=== PATIENT | female | born 1945 | race Caucasian/White ===

== ENCOUNTER 2017-01-02 17:12 | Inpatient (IN) | payer MEDICARE, OTHER ==
[~2017-01-02] VITALS: Ht 167.6 cm; Wt 81.5 kg
[2017-01-02 18:38] VITALS: BP 224/119; PULSE 100; RESP 16; O2SAT 99
[2017-01-02] MEDS ORDERED: CLOP75TA3 PO (19:37)
[2017-01-02] MEDS ORDERED: NITR0.4T6 SL (19:37)
[2017-01-02] MEDS ORDERED: INSLIS SUBQ (19:37)
[2017-01-02] MEDS ORDERED: INSU100I13 SUBQ ×2 (19:37)
[2017-01-02] MEDS ORDERED: ASPI-973 PO (19:37)
--- NOTE | 2017-01-02 19:39 | NUR ---
ADMIT Patient was received via BLS from Chau Merritt. Patients , who is a trauma surgeon is with the patient. Per her patient was having nausea and vomiting from gastroenteritis for several days now and he helped her to the bathroom. She, then had syncopal episode and fell and hit the bathroom floor. Patient had a concussion from the fall and a cervical fracture. Patient was then transported to [facility]. HX: DM, HTN-Patient was on Norvasc and a betablocker, which where d/cd due to her having postural hypertension and syncopal episodes, CRF secondary to her DM (CR-2.4-2.6; BUN-55 for her baseline per her . She sees Dr. White for this), Psoriatic arthritis, Severe Afib (Corrected with an ablation 4 yrs. 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 ago, ? migraine. Patient was medicated with Fentanyl prior to transfer to the hospital. Denies nausea. No emesis noted. Denies SOB. Cervical collar in place for 6 weeks per report. Denies numbness/tingling in her BUE/BLE at this time. Equal strength and automotive glass mechanic. Hospitalist paged. Care endorsed to Sanjay Flores RN. *PATIENT WAS SUPPOSED TO HAVE AN EEG TO EVALUATE HER SYNCOPAL EPISODES LAST WEEK BUT WAS UNABLE TO SO DUE TO HER NOT FEELING WELL.
[2017-01-02] MEDS ORDERED: HYDROmorphone 1 mg/mL Inj IVPUSH PRN (19:55)
[2017-01-02 20:00] VITALS: BP 220/112; PULSE 101; RESP 16; O2SAT 96
[2017-01-02] MEDS ORDERED: Ondansetron 2 mg/mL 2 mL Inj IVPUSH PRN (20:05)
[2017-01-02] MEDS: 0.9% Sodium Chloride 1,000 ML IV SCH ×2 (20:05→21:46)
[2017-01-02] MEDS ORDERED: Alum-Mag Hydrox-Simeth 30 mL Suspension PO PRN (20:20)
[2017-01-02] MEDS ORDERED: Glucose 40% Oral Gel 15 Gm Tube PO PRN (21:40)
[2017-01-02] MEDS ORDERED: Dextrose 10% 250 ML IV PRN (21:50)
[2017-01-02] MEDS: Insulin LISPRO 300 Unit/3 mL Inj SUBQ SCH (22:00)
[2017-01-02] MEDS: Insulin GLARgine 100 Unit/mL Syringe SUBQ SCH (22:43)
[2017-01-02 23:01] VITALS: PULSE 110
[2017-01-02 23:45] VITALS: BP 222/106; PULSE 109; RESP 16; O2SAT 99
[2017-01-03] VITALS (8 sets, daily range): BP systolic 146–191; BP diastolic 72–84; PULSE 87–98; RESP 18–24; O2SAT 97–99
[2017-01-03 00:51] LABS: APPEARANCE,URINE CLEAR (CLEAR,HAZY); COLOR,URINE STRAW (YELLOW); OCCULT BLOOD,URINE MODERATE (NEGATIVE); UROBILINOGEN,URINE NORMAL (NORMAL)
[2017-01-03] MEDS: Labetalol 5 mg/mL 4 mL Inj IVPUSH PRN ×2 (00:53→04:31)
--- NOTE | 2017-01-03 01:13 | PCM.HPMED ---
Subjective Date of Service Jan 02, 2017 Primary Provider: Admitting Physician: Jake Sanderson MD Primary Care Physician: Geronimo Gonzales MD Attending Physician: Jake Sanderson MD Admit Status: Direct Admit Chief Complaint: Dizziness, falls History of Present Illness: Patient is a 71 year old female with history of atrial fibrillation, CKD, CAD s/ p stents, TIA, type 2 diabetes, and uncontrolled hypertension who presents as a transfer from [facility] for a head laceration and C-spine fracture following a ground level fall. Most of the history was obtained from the , who is a trauma surgeon at [facility], as the patient was somewhat altered due to pain medications and pain. She had been in declining health over the past 2 months, with recurring orthostatic hypotension and syncope, to the point that she was no longer able to stand for extended periods of time. She had been feeling more dizzy and nauseous, and began developing diarrhea yesterday. Today her was helping her to the commode, and reached for a bucket for her to vomit into when she collapsed, striking the left side of her head against the floor. She lost consciousness for 15 seconds and began to complain of head and neck pain when she came to. At [facility], temp was 36, HR 119, RR 18, BP 201/101, O2 96 on room air. WBC 8.6, Hb 11.6, Hct 34.3, Plt 263. Na 138, K 4.2, Cl 104, CO2 22, BUN 42, Cr 2.5, glucose 212. Troponin was negative. LFTs were normal. CT head/ neck showed no acute intracranial process, but did show a nondisplaced type II dens fracture. [facility] recommended conservative treatment, with placement in a hard collar for 2 weeks with re-evaluation by Dr. Miles from [facility]. She was treated at [facility] for a left scalp laceration, and was then transferred to [facility]. Per the , the patient had been tried on Norvasc, but began developing orthostatic hypotension and syncope since starting it. She has been off the medication for over a week, but he states she is still symptomatic, which he thinks is due to slow renal clearance of the medication. She had had poor oral intake over the past 2 weeks, and had been becoming progressively weaker. She has been having worsening CKD over the last 1-2 years, and her last GFR was 18, similar to today. PCP: Dr. Gonzales ([facility]) Review of Systems: Comprehensive review of systems conducted and was negative except for the pertinent positives listed above. Allergies Coded Allergies: Tetanus Vaccines and Toxoid (Verified Allergy, Severe, 01/02/17) ARRHTYMIA procainamide (Verified Allergy, Severe, 01/02/17) ARRHTYMIA hydromorphone (Verified Adverse Reaction, Severe, Nausea, Feeling Sick, 01/02/17) Home Medications Aspirin 81 mg dialy Plavix 75 mg daily Lantus 10 U AM, 12 U qhs Humalog correctional scale Nitro SL PRN PMH Atrial fibrillation s/p ablation Atrial rupture - complication of ablation Type 2 diabetes, uncontrolled, with neuropathy and nephropathy Hypertension Chronic kidney disease Stage 4 Coronary artery disease s/p stent Psoriatic arthritis TIA Chronic diarrhea Kidney stones Surgical History Cardiac ablation Coronary cath with stent Appendectomy Hysterectomy Oopherectomy Cataract surgery Social History Hx Alcohol Use: No Hx Substance Use: No Exam Vital Signs Vital Sign - Last Date Time Temp Pulse Resp B/P Pulse Ox O2 Delivery O2 Flow Rate FiO2 01/02/17 18:38 36.6 100 16 224/119 99 Room Air Exam General: Alert, somewhat confused but answers appropriately for the most part, Cooperative, Pt in acute distress due to pain Head: Large laceration on left scalp with rabia. External ears normal. Eyes: PERRLA, EOMI. Anicteric sclerae. Mouth: Mouth normal, Mucous membranes moist/pink Neck: Neck in C-collar Chest& Lungs: Clear to auscultation bilaterally with no crackles, wheezes, or rhonchi. Cardiovascular: Regular rate/rhythm, Normal S1, Normal S2, Systolic murmur present Abdomen: Non-tender, Non-distended, No masses, Normoactive bowel tones, Soft Musculoskeletal: Normal range of motion Extremities: No cyanosis/clubbing/edema bilaterally Neurological: Grossly neurologically intact. Normal speech. Strength normal in all 4 extremities. Sensation intact. Assessment & Plan Patient is a 71 year old female with history of atrial fibrillation, CKD, CAD s/ p stents, TIA, type 2 diabetes, and uncontrolled hypertension who presents as a transfer from [facility] for a head laceration and C-spine fracture following a ground level fall. Hypertensive urgency, acute. - Pt has history of uncontrolled hypertension, with multiple medication attempts. Unknown which meds were previously used other than amlodipine, which caused edema and orthostatic hypotension. BP 222/106, HR 109. Likely in part due to pain. - Labetalol 20 mg IV PRN. Goal SBP 170-180 for first 1-2 hours, then 140-160. - Pain control Urinary tract infection, acute. - UA in [facility] showed 25 WBCs, mod RBC, neg nitrite, small LE, moderate bacteria. Pt reports chills, myalgias, fatigue. - UA repeat - Follow up on urine cultures at [facility] - Ceftriaxone IV Tachycardia, acute. - Pt has apparently not had issues with afib since the ablation, but she is tachycardic now. Likely secondary to pain. - EKG ordered - Monitor on telemetry. Cervical fracture, acute. - Per discussion with Jacey, pt to wear C-collar for 2 weeks, with follow up imaging and appointment with Dr. Miles in 2 weeks. No weakness or new numbness in any extremity. - Immobilization of neck with C-collar - Regular neurologic checks - Morphine 2-4 mg IV q4h PRN - Tylenol PRN - Zofran PRN Ground level fall, acute -h/o falls and orthostatic hypotension -check orthostatic bp -PT/ OT for deconditioned state Type 2 diabetes, uncontrolled, with neuropathy and nephropathy - Glucose was 212. Pt was on Lantus 12 U hs and 10 U AM, but is eating poorly - A1c ordered - Lantus 12 U qhs - Humalog medium dose correctional scale Diarrhea, acute on chronic. Resolved. - Pt had diarrhea over last 2 days, but states it has resolved at this time. She reports intermittent diarrhea of unknown cause. Reports recently taking Flagyl for diarrhea. - Stool PCR Chronic kidney disease Stage 4 - Reported baseline Cr 18, similar to today. - Continue to monitor CMP Coronary artery disease s/p stent - Continue aspirin - Hold Plavix for 1-2 days, restart if no signs of bleeding. Psoriatic arthritis - Stelara not available on formulary. Continue on discharge. Other Chronic Conditions Atrial fibrillation s/p ablation Atrial rupture - complication of ablation TIA Chronic diarrhea Kidney stones The patient is admitted under inpatient status with stay >2 midnights due to severity of illness. Pain Evaluation: Adequate Pain Control VTE Prophylaxis: SCDs Resuscitation Status: CPR: Attempt Resuscitation Attending Statement The patient was seen and examined together with house staff on 01/02/2017 and I agree with the history, exam and plan as outlined in the note above. Evangelista Lake Jan 02, 2017 21:44 Apryl Reed DO Jan 03, 2017 04:15
[2017-01-03] MEDS: cefTRIAXone Inj 1,000 MG in Dextrose 5% Minibag Plus 50 ML IV SCH (02:12)
[2017-01-03] MEDS: Ondansetron 2 mg/mL 2 mL Inj IVPUSH PRN ×3 (02:57→08:00)
[2017-01-03] MEDS: Acetaminophen IV 1,000 MG in IV Premix 1 EACH IV PRN ×3 (03:01→17:49)
--- NOTE | 2017-01-03 03:55 | NUR ---
Pain/ Nausea Pt. seems to be sensitive to narcotics. IV morphine 2 mg given, and pt. started to get nauseous. IV Zofran given. IV Tylenol given later in shift, and IV Tylenol lowered pt's pain without making her nauseous. Will continue to monitor. Addendum: 01/03/17 at 0535 by SAEED MORRIS RN Pt. had pettit present on admission. Patent and draining to gravity.
[2017-01-03] MEDS: 0.9% Sodium Chloride 1,000 ML IV SCH ×4 (06:05→16:17)
--- NOTE | 2017-01-03 06:14 | NUR ---
Neuro paged Concerned about pt's neuro status. paged. Pt. continues to vomit, and have high BP despite medications. Pt's right pupil is also less equal reactive to light than left. Laura BABIN paged. Addendum: 01/03/17 at 0617 by SAEED MORRIS RN called back. No new orders at this time.
[2017-01-03 06:22] LABS: BASOPHILS % (AUTO) 0.1 % (0-3); EOSINOPHILS % (AUTO) 0 % (0-5); MONOCYTES % (AUTO) 9.6 % (4-12); Mean Corpuscular Hemoglobin 30.6 pg (27.0-35.0); Mean Corpuscular Volume 94.1 fL (81-100); NEUTROPHILS % (AUTO) 82.6 % (40-74); Platelet Count 220 bil/L (150-400)
--- NOTE | 2017-01-03 08:27 | DRSVH ---
PROCEDURE: CT BRAIN WITHOUT CONTRAST ([id number]) INDICATIONS: Head trauma, HTN, vomiting, anisocoria TECHNIQUE: Noncontrast 4.5 mm thick angled axial sections acquired from the foramen magnum to the vertex, with c oronal reformats. COMPARISON: [facility], CT, HEAD WITHOUT CONTRAST, 10/19/2015, 13:07. FINDINGS: Image quality: Excellent. CSF spaces: Basal cisterns are patent. No extra-axial fluid collections. Ventricles are normal in size and shape. Brain: No midline shift. No intracranial masses or hemorrhage. Marin-white matter interface is norm al. Skull and face: Calvarium and visualized facial bones are intact, without suspicious lesions. Exten sive left scalp hematoma. Sinuses: Minimal inferior right maxillary sinus and ethmoid air cell mucosal thickening. Otherwise vi sualized sinuses and mastoids are clear. IMPRESSION: No CT evidence of acute intracranial pathology. Extensive left scalp hematoma. Dictated by: Juaquin Golden M.D. on 01/03/2017 at 8:16 Approved by: Juaquin Golden M.D. on 01/03/2017 at 8:19
[2017-01-03] MEDS ORDERED: fentaNYL-PF 50 mCg/mL 2 mL Inj IVPUSH PRN ×2 (08:35)
[2017-01-03] MEDS: Insulin LISPRO 300 Unit/3 mL Inj SUBQ SCH ×4 (08:49→21:23)
[2017-01-03] MEDS: MetoCLOpramide 5 mg/mL 2 mL Inj IVPUSH PRN (11:24)
[2017-01-03 12:19] LABS: Lipase 21 U/L (13-60)
--- NOTE | 2017-01-03 15:40 | NUR ---
neuro/nausea pt continues to be severely nauseated, retching at times, pt c/o neck pain and H/A, sometimes dizziness, VS OK, she is alert and oriented, but very uncomfortable, unable to turn her, her left synagogue is swollen and she has bilat periorbital edema. no vision changes, pupils reactive but constricted. Call to Dr Rodriguez, he ordered a CT scan of her brain and changed some of her nausea and pain meds, also called her , who happens to be a general surgeon to let him know how she was doing. Dr Rodriguez was able to talk to him also
--- NOTE | 2017-01-03 15:47 | NUR ---
Syncope?seizure? after pt had CT scan this am she was able to sleep for about 1.5 hours, but when she woke up, she was retching again, and then she started shaking, her upper body and arms. Appeared like seizure activity. She was confused and yelled at us to let her loose, but we weren't holding her. She didn't know where she was or what time of day. She was struggling for a minute or two and in obvious distress. Shortly after that her got here, after describing it to him, he said that it sounded like episode she's been having at home. He believes these to be syncopal episodes. Shortly after that she fell asleep again and woke up feeling slightly better. Her sleeping state does not appear normal for her either,according to her . She has been snoring with short periods of apnea, but she is arousable. After her second nap she seemed to be feeling slightly better. HR been 90-100s, BP170/84, sat 98% on RA even while sleeping. Dr Rodriguez was notified of episode
--- NOTE | 2017-01-03 16:08 | NUR ---
Social Work- Initial Assessment Data: See Initial Assessment. Pt is a 71 year old female admitte 01/02/17 for diarrhea, syncope, hypovolemia per H&P. Pt's insurance is [facility] [employer]. Pt's PCP is Geronimo Gonzales MD. Pt's NOK is Jayson [phone] and [phone]. Pt's readmit risk score is 4- high risk. SW met with pt and pt's at bedside regarding discharge plan. SW role explained. Pt was asleep during this assessment. Pt resides in [place] with her . Until 3 months ago pt was ambulatory and independent. Until three weeks ago, pt was ambulatory but with continued weakness. Beginning three weeks prior to admission pt has become so weak she is a total assist. Pt's uses a contact guard to move her from BSC to bed, approximately 10 feet. Pt also has a wheelchair to move from room to room with her husbands assistance. Pt's is very concerned about pt's mobility. In pt's home there is a wheelchair, AED, BP monitor, Diabetic Monitor, BSC, and Telemetry system. Per and EMR review, pt will require cervical collar for 6 weeks for a cervical fracture. In notes, PT and OT were recommended. PIN ATTACHER followed up regarding this in AM rounds. At this time, Hospitalist feels that PT and OT are not appropriate for pt to participate. No orders have been entered at the time of this note. Pt's feels that pt should go to inpt rehabilitation after this admission. SW explained that a doctor would have to order this based on medical necessity for insurance to pay for it. SW would be happy to chat with Hospitalist regarding this and also encouraged pt's to speak with MD as well. Pt's shared that [facility] inpt rehab would be first choice. At this time no SNF or inpt rehab orders have been entered. SW will await orders before pursuing inpt rehab or SNF. Pt has no HH or SNF history. Pt has no LTC or VA benefits. SW provided to discharge planning checklist to pt's at bedside. SW also discussed the potential for hiring private caregivers if pt does not meet medical criteria for a higher level of care. Pt's states this is financially possible. Agreeable to reviewing the [facility] Guide for private pay caregivers. Resource Guide provided at bedside. SW provided name and phone number on whiteboard. SW will continue to follow. Assessment: Pt whom is very weak and debilitated Plan: SW following for inpt rehab or SNF orders pending clinical course. Pt is very debilitated and will require extensive assistance at home. Caregiving resources have been provided to pt's . SW will continue to follow. Digna Madrigal [facility] Addendum: 01/03/17 at 1619 by LEV MADRIGAL SS Amended: Links added.
--- NOTE | 2017-01-03 16:28 | PCM.PNMED ---
Subjective Date of Service Jan 03, 2017 Subjective She is seen today to follow up the C2 spinal fracture, intractable vomiting, altered mental status, autonomic dysreflexia of long-term diabetes. She has had quite a disturbing day so far. She has been vomiting, retching dry heaves, shaky at times, oversedated appearing at other times. When she was vomiting she is at high risk for aspiration as she is unable to sit up due to the C- spine fracture/brace and due to her postural hypotension. She lies on her side both when vomiting and when sleeping. She is a retired nurse. I have spoken at length with her who is a retired general surgeon and who has significant knowledge about her medical history and about her unique conditions. Her baseline problem appears to be type II diabetes with severe neuropathic symptoms and autonomic dysreflexia. She has been worked up by Dr. Marie from neurology, her cleater, her hydroelectric production technician Dr. Andrews and by her channel sales manager Dr. Gonzales. There are more several more specialists involved than that. For the last several months she has been unable to stand and walk on her own without assistance because her blood pressure would drop as low as the 80s or lower systolic as soon as she stood up. She does not appear to have been tried on fludrocortisone or ProAmatine that I can tell. Several times today she has been intractably ill enough that she has been considered for transfer to an ICU or ICU stepdown unit. Each time she then stabilizes and seems to be okay. Exam Vital Signs Vital Sign - Last Date Time Temp Pulse Resp B/P Pulse Ox O2 Delivery O2 Flow Rate FiO2 01/03/17 10:22 96 01/03/17 08:46 36.4 24 170/84 99 Room Air Intake and Output 01/02/17 01/02/17 01/03/17 Cumulative From/Thru 15:00 23:00 07:00 01/02/17 19:18 - 01/03/17 05:42 Intake Total 913 ml 913 ml Output Total 850 ml 850 ml Balance 63 ml 63 ml Intake Oral 100 ml 100 ml IV Total 813 ml 813 ml Output Urine Total 850 ml 850 ml # Bowel Movements 0 0 Exam She is alert and oriented 3. At other times she is post sedated and confused or sleeping. I have seen her several times today. She is lying on her side, right, with a hard collar on her C-spine. Heart is regular rate and rhythm without murmur Lungs are clear to auscultation bilaterally Abdomen is soft, nontender, no organomegaly, bowel sounds active. Extremities no ankle edema. Lab and Diagnostics Result Diagram: 01/03/1755301/03/17553 Assessment & Plan Patient is a 71 year old female with history of atrial fibrillation, CKD, CAD s/ p stents, TIA, type 2 diabetes, and uncontrolled hypertension/diabetic autonomic dysreflexia who presents as a transfer from [facility] for a head laceration and C-spine fracture following a ground level fall. Hypertensive urgency, acute. - Pt has history of uncontrolled hypertension, with multiple medication attempts. Unknown which meds were previously used other than amlodipine, which caused edema and worsened orthostatic hypotension beyond her baseline problem with that. - Labetalol 20 mg IV PRN. Goal SBP 170-180 for first 1-2 hours, then 140-160. - Pain control Urinary tract infection, acute. - UA in [facility] showed 25 WBCs, mod RBC, neg nitrite, small LE, moderate bacteria. Pt reports chills, myalgias, fatigue. - UA repeat - Follow up on urine cultures at [facility] - Ceftriaxone IV Tachycardia, acute. - Pt has apparently not had issues with afib since the ablation, but she is tachycardic now. Likely secondary to pain. - Monitor on telemetry. Cervical fracture, acute. - Per discussion with Jacey, pt to wear C-collar for 2 weeks, with follow up imaging and appointment with Dr. Miles in 2 weeks. No weakness or new numbness in any extremity. - Immobilization of neck with C-collar - Regular neurologic checks - Morphine 2-4 mg IV q4h PRN, seems to be related to her nausea and so has been changed to fentanyl. - Tylenol IV PRN - Zofran PRN Ground level fall, acute -h/o falls and orthostatic hypotension/ Diabetic autonomic dysreflexia -check orthostatic bp -PT/ OT for deconditioned state -Trial of midodrine/Florinef if not already failed. Will discuss with her . Continue IV fluid support. Type 2 diabetes, uncontrolled, with neuropathy and nephropathy - Glucose was 212. Pt was on Lantus 12 U hs and 10 U AM, but is eating poorly - A1c ordered - Lantus 12 U qhs - Humalog medium dose correctional scale - No signs of DKA. Diarrhea, acute on chronic. Resolved. - Pt had diarrhea over last 2 days, but states it has resolved at this time. She reports intermittent diarrhea of unknown cause. Reports recently taking Flagyl for diarrhea. - Stool PCR Chronic kidney disease Stage 4 - Reported baseline Cr 18, similar to today. - Continue to monitor CMP Coronary artery disease s/p stent - Continue aspirin - Hold Plavix for 1-2 days, restart if no signs of bleeding. Psoriatic arthritis - Stelara not available on formulary. Continue on discharge. Other Chronic Conditions Atrial fibrillation s/p ablation Atrial rupture - complication of ablation TIA Chronic diarrhea Kidney stones The patient is admitted under inpatient status with stay >2 midnights due to severity of illness. The short range plan is to stabilize in her current Room if symptoms, likely related to morphine use, become more subdued. If that does not sustain then she will be transferred to a higher level of care. The long-range plan is to continue IV fluid support, possible endocrine consultation for autonomic dysreflexia and PT/OT with goal of discharge home. Fludrocortisone may be helpful. VTE Prophylaxis: SCDs VTE Mechanical Devices: Intermittant Pneumatic CD Resuscitation Status: CPR: Attempt Resuscitation Kenneth Rodriguez MD Jan 03, 2017 11:22
--- NOTE | 2017-01-03 17:58 | NUR ---
neuros/nausea pt comfortable and nausea free at this time, no further episodes since the one previously documented. Pt was actually able to take some pudding and Gatorade. alert, oriented. VSS
[2017-01-03] MEDS: Insulin GLARgine 100 Unit/mL Syringe SUBQ SCH (21:30)
[2017-01-03] MEDS: Labetalol 5 mg/mL 20 mL Inj IVPUSH PRN (21:31)
[2017-01-04] VITALS (9 sets, daily range): BP systolic 154–196; BP diastolic 67–93; PULSE 81–101; RESP 16–20; O2SAT 95–98
[2017-01-04] MEDS: Acetaminophen IV 1,000 MG in IV Premix 1 EACH IV PRN ×3 (01:00→22:17)
[2017-01-04] MEDS: cefTRIAXone Inj 1,000 MG in Dextrose 5% Minibag Plus 50 ML IV SCH (02:00)
[2017-01-04] MEDS: 0.9% Sodium Chloride 1,000 ML IV SCH ×4 (02:05→22:15)
[2017-01-04 06:14] LABS: Mean Corpuscular Hemoglobin 30.6 pg (27.0-35.0); Mean Corpuscular Volume 95.6 fL (81-100)
--- NOTE | 2017-01-04 06:42 | NUR ---
Neuros/ Pain/ GI Pt. was sleeping earlier in shift, however pt. woke up in severe pain. 25 mcg Fentanyl which pt. tolerated well with no nausea. Pt. still reports IV Tylenol helping with her pain. Pt.'s nausea and retching seemed to slow around midnight, and is absent as of now. Pt.'s neuro checks have been the same all shift. Pupils equal and reactive to light and left perioribital edema. Pt. is alert and oriented x3. Will continue to monitor.
[2017-01-04] MEDS ORDERED: Cosyntropin 0.25 mg/mL Inj IV ONE (07:00)
[2017-01-04] MEDS: Insulin LISPRO 300 Unit/3 mL Inj SUBQ SCH ×4 (08:00→22:00)
[2017-01-04] MEDS: MetoCLOpramide 5 mg/mL 2 mL Inj IVPUSH PRN (08:31)
[2017-01-04] MEDS: Labetalol 5 mg/mL 20 mL Inj IVPUSH PRN ×3 (08:43→22:33)
--- NOTE | 2017-01-04 11:16 | NUR ---
NUTRITION ASSESSMENT: ASSESS: Pt is a 71yo F admitted for head laceration and C-spine fracture following a ground level fall. Pt has had persistent nausea/vomiting and diarrhea. Per H&P pt has had poor PO intake for the last 2 weeks. She is currently on HH/Diabetic diet but has only been able to tolerate bites of pudding and some Gatorade. PMHX: T2DM, HTN, CKD stg 4, CAD, TIA LABS: Reviewed. Cl 110, Bun 28, gas examiner 1.92, Glu 114, Ca 8.3, Alb 2.4 MEDS: Reviewed. Insulin, zofran GI: 0 BM noted SKIN: Dc 14, had laceration, bruising CURRENT WTS: 87.5kg, BMI 31.1kg/m2, IBW: 59.1kg DIET: HH/DM, PO refused-sips EST. NEEDS: Kcals: 2185-2625kcal/day (25-30kcal/kg) Pro: 70-90g/day (1.2-1.5g/kg IBW) NUTRITION DIAGNOSIS: 1.) Inadequate oral intake related to altered GI function as evidence by poor PO intake x2 weeks and persistent nausea/vomiting. NUTRITION INTERVENTION: 1.) Will add Ensure CL on B and L trays to help increase kcal/pro/fluid intake while pt has n/v MONITOR / EVAL: PO, GI, labs, wt, POC, nutrition status. Will continue to monitor per high nutrition risk guidelines
[2017-01-04] MEDS: Ondansetron 2 mg/mL 2 mL Inj IVPUSH PRN (13:35)
--- NOTE | 2017-01-04 15:13 | PCM.PNMED ---
Subjective Date of Service Jan 04, 2017 Subjective Pt reports improved nausea and pain in neck. She is still having difficulty moving from bed due to pain. Her BP has been elevated again and she has been unable to stand as that's usually when she says shes get syncopal episodes even when her BP is high. Exam Vital Signs Vital Sign - Last Date Time Temp Pulse Resp B/P Pulse Ox O2 Delivery O2 Flow Rate FiO2 01/04/17 14:48 82 154/72 01/04/17 12:34 37.2 16 95 Room Air Intake and Output 01/03/17 01/03/17 01/04/17 Cumulative From/Thru 15:00 23:00 07:00 01/02/17 19:18 - 01/04/17 06:07 Intake Total 1679 ml 1504 ml 4096 ml Output Total 500 ml 750 ml 2100 ml Balance 1179 ml 754 ml 1996 ml Intake Oral 420 ml 300 ml 820 ml IV Total 1259 ml 1204 ml 3276 ml Output Urine Total 500 ml 750 ml 2100 ml # Bowel Movements 0 0 0 Exam Gen- She is alert and oriented 3. Neck- hard collar on her C-spine. Pain w/ turning. Heart- RRR, S1, S2, No M/R/G Lungs - CTAB, No Wheezes Abdomen- NT/ND, Soft, +BS Extremities- No edema IVs and Medications Medications Reviewed: Medications were reviewed in detail Lab and Diagnostics Result Diagram: 01/04/1745 01/04/17 0545 Assessment & Plan Patient is a 71 year old female with history of atrial fibrillation, CKD, CAD s/ p stents, TIA, type 2 diabetes, and uncontrolled hypertension/diabetic autonomic dysreflexia who presents as a transfer from [facility] for a head laceration and C-spine fracture following a ground level fall. Hypertensive urgency, acute. - Pt has history of uncontrolled hypertension, with multiple medication attempts. Unknown which meds were previously used other than amlodipine, which caused edema and worsened orthostatic hypotension beyond her baseline problem with that. - Labetalol 20 mg IV PRN. Goal SBP 170-180 for first 1-2 hours, then 140-160. - Pain control. Cervical fracture, acute. - Per discussion with Jacey pt to wear C-collar for 2 weeks, with follow up imaging and appointment with Dr. Barb[place] in 2 weeks. No weakness or new numbness in any extremity. - Immobilization of neck with C-collar - Regular neurologic checks - Morphine 2-4 mg IV q4h PRN, seems to be related to her nausea and so has been changed to fentanyl. - Tylenol IV PRN - Zofran PRN orthostatic Hypotension/Autonomic Dysreflexia. -h/o falls and orthostatic Hypotension/Autonomic Dysreflexia. -unable to check orthostatic bp, -PT/ OT for deconditioned state - would like to see Nephrology as they were told they needed to follow up with Nephrology this week. Will consult for orthostatic hypotension and role of Florinef. Can continue Florinef for now. Continue IV fluid support. Type 2 diabetes, uncontrolled, with neuropathy and nephropathy - Glucose was 212. Pt was on Lantus 12 U hs and 10 U AM, but is eating poorly - Lantus 12 U qhs - Humalog medium dose correctional scale - No signs of DKA. Chronic kidney disease Stage 4 - Reported baseline Cr 18, similar to today. - Continue to monitor CMP Urinary tract infection, acute. - UA in [facility] showed 25 WBCs, mod RBC, neg nitrite, small LE, moderate bacteria. Pt reports chills, myalgias, fatigue. - UA repeat - Follow up on urine cultures at [facility] - Ceftriaxone IV, consider change to PO. Tachycardia, acute. - Pt has apparently not had issues with afib since the ablation, but she is tachycardic now. Likely secondary to pain. - Monitor on telemetry Coronary artery disease s/p stent - Continue aspirin - Hold Plavix for 1-2 days, restart if no signs of bleeding. Psoriatic arthritis - Stelara not available on formulary. Continue on discharge. Other Chronic Conditions Atrial fibrillation s/p ablation Atrial rupture - complication of ablation TIA Chronic diarrhea Kidney stones The patient is admitted under inpatient status with stay >2 midnights due to severity of illness. The long-range plan is to continue IV fluid support, possible endocrine consultation for autonomic dysreflexia and PT/OT with goal of discharge home. Nephro consult pending. VTE Prophylaxis: SCDs VTE Mechanical Devices: Intermittant Pneumatic CD Resuscitation Status: CPR: Attempt Resuscitation Time spent 60 minutes Jose Tan MD Jan 04, 2017 15:02
--- NOTE | 2017-01-04 16:00 | NUR ---
VALENTE signed by pt's at pt's request at bedside. Digna Salguero, DATAPOWER CONSULTANT
--- NOTE | 2017-01-04 16:27 | NUR ---
Social Work- Family Conference Data: EMR reviewed. Pt is on day 2 of hospitalization for diarrhea, syncope, hypovolemia per H&P. Pt is not medically stable for discharge. Per multi-disciplinary rounds, LOG HOOKER asked again about PT and pt's ability to participate in skilled PT service during this admission. MD stated he would look into this and later PT evaluation was ordered. Pt continues to have difficulty moving from bed due to pain. Pt's BP has been elevated again and she has been unable to stand. Nephrology consult has been ordered. PT evaluation has been ordered. RN informed LOG HOOKER that pt and pt's Jayson were requesting to speak with LOG HOOKER at bedside. LOG HOOKER met with pt's Jayson and pt at bedside. Pt's RN appeared to complete care intermittently during this conversation. Pt's spoke at length regarding pt's medical issues and concerns. SW explained that LOG HOOKER is not an MD and does not have the medical expertise necessary to answer his clinical questions but LOG HOOKER will defer to doctors expertise. SW reiterated the role of discharge planning here at the hospital and explained that discharge plans are crafted with LOG HOOKER recommendations but also MD orders based on medically necessary level of care. LOG HOOKER verified that no Inpt Rehab, SNF, or HH orders have been ordered at this time. Pt's continued to request that pt discharge to inpt rehab. LOG HOOKER stated that we will have to assess her tolerance for activity and to be sure that she is able to tolerate the necessary intensity of inpt rehabilitation if this is medically indicated and ordered. LOG HOOKER provided a listening presence and addressed pt's questions to the best of ability. Pt's has extensive medical questions related to pt's plan of care and consults. LOG HOOKER informed pt's that nephrology consult and PT evaluation was ordered. Pt's requests to be present at PT evaluation tomorrow. RN aware of this. Pt's expressed clinical concerns related to care, Patient Advocate contact information provided at bedside. Pt's reviewed and is aware of pt's rights through [facility] and completed signed VALENTE. At the conclusion of this conversation, pt's stated appreciation and no further concerns or questions for LOG HOOKER specifically. LOG HOOKER confirmed that phone number was on whiteboard and encouraged pt and pt's to contact this worker with any further questions or concerns. SW will continue to follow. Assessment: Pt for whom higher level of care may be required. Plan: PT evaluation pending. SW awaiting MD orders for pt's discharge plan and necessary level of care. Pt's expressed clinical concerns related to care, Patient Advocate contact information provided at bedside. SW will continue to follow. FARHAN Uribe
--- NOTE | 2017-01-04 18:33 | NUR ---
Pain/mobility patient's pain level has been well controlled when at rest rate pain 0-2/10 at rest. patient's pain and nausea level does increase with any movement/position changes. Turning Q2hrs. this afternoon patient was able to raise the head of her bed and eat dinner and visit with family. this is an improvement from this morning. continue to encourage increased mobility.
--- NOTE | 2017-01-04 18:36 | NUR ---
husbands concern with plan of care. during a discussion with patient's , who is an MD Surgeon with [employer]. Spouse reported concerns with is interaction with Dr Tan stating, "he just wants to ship her to a care home". spouse is requesting contact with a patient advocate, consultations with nephrology about her kidney function and blood pressures and with orthopedics to consult on neck injury,and physical therapy evaluation. I contacted family welfare social work professor who helped set up advocate and facilitated referral with nephrology, who will see patient tomorrow. I reassured that staff will advocate and make sure is concerns are addressed. he verbalized understanding.
[2017-01-04] MEDS: Insulin GLARgine 100 Unit/mL Syringe SUBQ SCH (22:22)
[2017-01-05] VITALS (23 sets, daily range): BP systolic 119–223; BP diastolic 63–105; PULSE 72–86; RESP 12–22; O2SAT 93–99
[2017-01-05] MEDS: cefTRIAXone Inj 1,000 MG in Dextrose 5% Minibag Plus 50 ML IV SCH (01:34)
[2017-01-05] MEDS: Labetalol 5 mg/mL 20 mL Inj IVPUSH PRN ×2 (04:36→06:43)
[2017-01-05] MEDS: Acetaminophen IV 1,000 MG in IV Premix 1 EACH IV PRN (04:51)
--- NOTE | 2017-01-05 05:32 | NUR ---
Chest pain Pt. reported chest pain 01/09. Stat EKG ordered. Dr. Hodgson paged. Nitroglycerin SL ordered and given. Pt's chest pain went down to 07/12. Pt's BP also symptomatic 223/105 before Nitroglycerin given. 15 mins after Nitroglycerin given 174/89. Pt's BP continues to rise. Labatelol given, and brought it down to 184/81. Rema BABIN paged again. Troponin critical lab ordered. Troponin 0.051. Rema BAIBN made aware. Bonnie Caceres CCU medical charge entry specialist made aware if this situation, and has a bed in [facility] ready for pt. Got the okay by Dr. Hodgson to send pt. to [facility]. Will give report to Beatriz Bansal RN once bed is ready.
[2017-01-05] MEDS ORDERED: Nitroglycerin 2% 1 Gm Ointment TOPICAL ONE (07:35)
--- NOTE | 2017-01-05 07:47 | NUR ---
Chest Pain Pt reports initially 3/10 LUE pain, increased to 7/10. EKG obtained, 2mg IV morphine administered along with 4mg zofran for nausea. 1 inch Nitro paste applied to L chest. Dr. Wiggins at bedside. Currently pain is zero, nausea resolved. Trending troponin levels.
[2017-01-05] MEDS ORDERED: Nitroglycerin 2% 1 Gm Ointment TOPICAL SCH (07:50)
--- NOTE | 2017-01-05 07:52 | NUR ---
Transfer/L Shoulder pain Pt arrived to unit a little after 0600, report from [facility]SC RN. Pt had Tylenol IV finishing, pt reported that pain was in left arm but was now gone, neck pain also 0/10 at the time. SBP 190s, given Labetolol before shift change report. During shift change report pt c/o of 3/10 LUE pain, stat EKG ordered, day RN aware, MD Wiggins came to see pt, while day RN giving IV morphine. See day RN note for details.
--- NOTE | 2017-01-05 08:58 | PCM.PNMED ---
Subjective Date of Service Jan 05, 2017 Subjective She is having chest pain or left arm pain this morning. This is constant. No associated diaphoresis or dyspnea. She is however nauseated and had dry heaving. She has a history of a diagonal lesion proximal to her LAD stent which was felt to not be amenable to PCI in the past. She recently was taken off beta blockers because of orthostatic hypotension and has been off Plavix for several days in relation to his C2 neck fracture. She has a more distant history of atrial fibrillation with ablation. She denies any abdominal pain. Met with her , retired surgeon at the bedside. Exam Vital Signs Vital Sign - Last Date Time Temp Pulse Resp B/P Pulse Ox O2 Delivery O2 Flow Rate FiO2 01/05/17 07:46 36.6 81 18 204/92 98 01/05/17 06:11 Room Air Intake and Output 01/04/17 01/04/17 01/05/17 Cumulative From/Thru 15:00 23:00 07:00 01/02/17 19:18 - 01/05/17 05:03 Intake Total 1552 ml 400 ml 6048 ml Output Total 800 ml 750 ml 3650 ml Balance 752 ml -350 ml 2398 ml Intake Oral 300 ml 400 ml 1520 ml IV Total 1252 ml 4528 ml Output Urine Total 800 ml 750 ml 3650 ml # Bowel Movements 0 0 0 Exam Alert and oriented -3, no distress. Fluent speech, cervical collar in place. Anicteric sclera. Lungs are clear with normal rate and effort Heart is regular without murmur gallop or rub Abdomen soft nontender, flat Extremities are free of edema. Normal movement arms and legs Skin is free of rash or lesions. IVs and Medications Medications Reviewed: Medications were reviewed in detail Lab and Diagnostics Result Diagram: 01/04/1745 01/04/17544 Assessment & Plan Patient is a 71 year old female with history of atrial fibrillation, CKD, CAD s/ p stents, TIA, type 2 diabetes, and uncontrolled hypertension/diabetic autonomic dysreflexia who presents as a transfer from [facility] for a head laceration and C-spine fracture following a ground level fall. Chest pain, new. This patient is likely having unstable angina relation to her known diagnosis vessel disease and recent cessation of dual antiplatelet therapy. We will give her dose of Plavix, aspirin, low-dose metoprolol and place Nitropaste for both blood pressure and anginal symptoms. RR at this point considering heparin drip as well. She has likely a low bleeding risk associated with her C2 odontoid fracture. We will also give her 1 unit of blood as her hematocrit is 25 and she is having active chest pain. Anemia of chronic disease, POA and active. We will give her 1 unit of blood for a target hematocrit of 27-28 given her acute active chest pain. Hypertensive urgency, POA and active - Pt has history of uncontrolled hypertension, with multiple medication attempts. Unknown which meds were previously used other than amlodipine, which caused edema and worsened orthostatic hypotension beyond her baseline problem with that. - Labetalol 20 mg IV PRN. Goal SBP 170-180 for first 1-2 hours, then 140-160. - Pain control. We will add Nitropaste and metoprolol IV load as above. Cervical fracture, POA and active - Per discussion with Jacey, pt to wear C-collar for 2 weeks, with follow up imaging and appointment with Dr. Miles in 2 weeks. No weakness or new numbness in any extremity. - Immobilization of neck with C-collar - Regular neurologic checks - Morphine 2-4 mg IV q4h PRN, seems to be related to her nausea and so has been changed to fentanyl. - Tylenol IV PRN - Zofran PRN No change to plans. orthostatic Hypotension/Autonomic Dysreflexia. POA and possibly active. -h/o falls and orthostatic Hypotension/Autonomic Dysreflexia. -unable to check orthostatic bp, -PT/ OT for deconditioned state - would like to see Nephrology as they were told they needed to follow up with Nephrology this week. Will consult for orthostatic hypotension and role of Florinef. Can continue Florinef for now. Continue IV fluid support. We will have to follow clinically as we lowered her with Nitropaste and metoprolol for her acute chest pain syndrome. Type 2 diabetes, uncontrolled, with neuropathy and nephropathy. POA and active. - Glucose was 212. Pt was on Lantus 12 U hs and 10 U AM, but is eating poorly - Lantus 12 U qhs - Humalog medium dose correctional scale - No signs of DKA. Follow clinically Chronic kidney disease Stage 4 - Reported baseline Cr 18, similar to today. - Continue to monitor CMP Try to avoid any contrast or other nephrotoxic agents. Urinary tract infection, POA had acute. - UA in [facility] showed 25 WBCs, mod RBC, neg nitrite, small LE, moderate bacteria. Pt reports chills, myalgias, fatigue. - UA repeat - Follow up on urine cultures at [facility] - Ceftriaxone IV, consider change to PO. Tachycardia, POA and improved. - Pt has apparently not had issues with afib since the ablation, but she is tachycardic now. Likely secondary to pain. - Monitor on telemetry Coronary artery disease s/p stent to LAD. POA and active with chest pain as outlined above. - Continue aspirin - Hold Plavix for 1-2 days, restart if no signs of bleeding. Psoriatic arthritis, POA unstable - Stelara not available on formulary. Continue on discharge. Other Chronic Conditions Atrial fibrillation s/p ablation. Not active Atrial rupture - complication of ablation TIA Chronic diarrhea Kidney stones The patient is admitted under inpatient status with stay >2 midnights due to severity of illness. VTE Prophylaxis: SCDs VTE Mechanical Devices: Intermittant Pneumatic CD Resuscitation Status: CPR: Attempt Resuscitation Jose Wiggins MD Jan 05, 2017 08:58
[2017-01-05] MEDS: 0.9% Sodium Chloride 1,000 ML IV SCH ×2 (09:39→21:38)
[2017-01-05] MEDS: Insulin LISPRO 300 Unit/3 mL Inj SUBQ SCH ×4 (09:39→21:42)
[2017-01-05] MEDS: MeTOProlol 1 mg/mL 5 mL Inj IVPUSH SCH ×3 (09:50→10:05)
--- NOTE | 2017-01-05 10:26 | NUR ---
NUTRITION FOLLOW-UP: ASSESS: Pt is a 71 YO female admitted with head laceration and C-spine fracture following a ground level fall. Pt has had persistent nausea/vomiting and diarrhea. Per H&P pt has had poor PO intake for the last 2 weeks. She is currently on a heart healthy consistent carbohydrate diet; however PO intake remains inconsistent, bites - 100% trays. PMHX: T2DM, HTN, CKD stg 4, CAD, TIA LABS:Reviewed. Chloride 111, Cr 1.97, Glu 133, A1c 7.6. MEDS:Reviewed. Insulin, zofran. GI: 0 BM noted x 3 D. SKIN: Dc 14, head laceration, bruising. WT: 87.5kg, BMI 31.1 kg/m2, IBW: 59.1 kg DIET: Heart healthy consistent carb. Inconsistent but improving PO intake. EST. NEEDS: Kcals: 2185-2625kcal/day (25-30kcal/kg) Pro: 70-90g/day (1.2-1.5g/kg IBW) NUTRITION DIAGNOSIS: 1) Inadequate oral intake related to altered GI function as evidence by poor PO intake x2 weeks and persistent nausea/vomiting - SLIGHTLY IMPROVED. NUTRITION INTERVENTION: 1) Will continue Ensure Clear Liquid on B and L trays, Gelatein on D tray to help increase kcal/pro/fluid intake while pt has n/v. MONITOR / EVAL: PO, GI, labs, wt, POC, nutrition status. Will continue to monitor per high nutrition risk guidelines.
--- NOTE | 2017-01-05 10:51 | NUR ---
Orthostatics PT in to assist with orthostatics. Pt able to sit, unable to stand 2/2 dizziness and near syncope. + orthostatics, see VS flow sheet. HR stable throughout- SR in 70s.
[2017-01-05] MEDS: 0.9% Sodium Chloride 250 ML IV SCH (13:35)
--- NOTE | 2017-01-05 14:17 | NUR ---
Evaluation completed. Please go to "Notes" then click on "Assessments and Notes" (bottom left corner of screen). Then select appropriate discipline tab on top of screen.
--- NOTE | 2017-01-05 15:57 | NUR ---
Social Work: Multidisciplinary Rounds/Continued Discharge Planning D: Pt transferred to [facility] overnight for unstable angina. Per review of chart. Pt has previously been I with ambulating up until 3 weeks ago. She is now a total assistance. Pt has a cervical fracture due to a recent fall. Per PT Notes, cleared pt for mobility to obtain orthostatics but permits no other movement. No discharge recommendations have been made at this time due to the pt's orthostatics and inability to participate. A: Pt who has been a total assistance for care over the last 3 weeks; normally Independent. P: Evolving; TANK INSPECTOR to continue to follow pt's clinical course closely and assess for discharge needs once vital signs are improved and/or clinical needs are more defined. FARHAN Reis
--- NOTE | 2017-01-05 16:04 | DRSVH ---
PROCEDURE: US RENAL WITH ARTERIES DUPLEX DOPPLER SONOGRAM, LIMITED INDICATIONS: UNCONTROLLED HYPERTENSION TECHNIQUE: Real time scanning was performed of both kidneys, followed by Color and pulsed Doppler in terrogation of the renal vessels. COMPARISON: None. FINDINGS: Aortic peak systolic velocity: Not visualized. Right side: Marin-scale imaging: Kidney is 11.2 cm long; renal cortical thickness is 1.2 cm. No hydronephrosis. No nephrolithiasis. Renal cortex is normal in echogenicity. No suspicious solid renal masses. Proximal renal artery peak systolic velocity: Not visualized. Mid renal artery peak systolic velocity: Not visualized. Distal renal artery peak systolic velocity: 62. Renal vein: Patent, without thrombus. Peak renal/aortic ratio (RAR):/8. Left side: Marin-scale imaging: Kidney is 12.2 cm long; renal cortical thickness is 1.3 cm. No hydronephrosis. No nephrolithiasis. Renal cortex is normal in echogenicity. No suspicious solid renal masses. Proximal renal artery peak systolic velocity: Not visualized. Mid-renal artery peak systolic velocity: 39 cm/s. Distal renal artery peak systolic velocity: 51 cm/s. Renal vein: Patent, without thrombus. Peak renal/aortic ratio (RAR): 10/8. Incidental finding of gallbladder sludge. IMPRESSION: 1. Renal arteries are much obscured by overlying bowel gas and renal arterial stenosis cannot be excl uded. If indicated MRA could be performed. 2. Gallbladder sludge. Dictated by: Sohail BURROWS Interpreted: Joan Rivera MD on 01/05/2017 at 16:01 Transcribed by: AROLDO on 01/05/2017 at 16:04 Approved by: Joan Rivera M.D. on 01/06/2017 at 11:43
--- NOTE | 2017-01-05 16:20 | NUR ---
spiritual care: follow up brief visit; pt reported desired visit from and her appreciation of continued spiritual care.
--- NOTE | 2017-01-05 18:20 | CONS ---
[address] [address] CONSULTATION REPORT PATIENT: SUZI CRUZ : 1945 MR#: [id number] ADMIT: 01/02/2017 JOB ID: [id number] DATE OF SERVICE: 01/05/2017 REQUESTING PHYSICIAN: Dr. Israel Wiggins. REASON FOR CONSULTATION: Management of blood pressure. 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 The patient is accompanied by her who is a trauma surgeon at [facility]. The patient has a very complicated and extensive past medical history. Most of the history I have obtained from her . Apparently, the patient has had very labile blood pressure. She was diagnosed with hypertension approximately six years ago. She has been on a variety of antihypertensive medications including lisinopril, losartan, hydrochlorothiazide, metoprolol, Norvasc and diltiazem. Her reported that she has seen a sanitarian, resident assistant cna, urologist, systems applications programming lead, etc. They have struggled with her blood pressure control. She told us that renal artery stenosis, pheochromocytosis were ruled out. Two months ago, she was started on amlodipine on top of metoprolol and hydrochlorothiazide. Since then, she had experienced five episodes of syncope and 10 episodes of presyncope. Every time when she has dizzy spells, she also had nausea and vomiting. She had lost 17 pounds over the past two weeks. He reported that she has been experiencing severe postural hypotension. He decided to discontinue Norvasc roughly two weeks ago. She reports no history of bowel and bladder incontinence. However, she had a previous history of chronic diarrhea that had lasted for a year. Nowadays, she still gets diarrhea from [id number]. She was told that it is because of bacterial overgrowth. On the day of the admission which was January 02, 2017, her was helping her to the commode and reached for a bucket for her to vomit when she collapsed. She hit her head against the floor. Unfortunately, she lost consciousness for at least 15 seconds. She was brought to the emergency department at [facility]. CT head and neck showed nondisplaced type 2 dense fracture. She also had left scalp laceration and that was stapled and bleeding was stopped. The patient was then transferred to [facility] for further investigation. He claimed that the severe postural hypertension is likely due to Norvasc. Even though she has been off the medication for a week also, he believes that it is still in the system, especially since she has history of chronic kidney disease. Here at our hospital, the patient has had supine hypertension. Blood pressure has ranged between 140s to 220 systolic. She has significant postural hypotension this morning. The lying blood pressure was 165/84, and sitting blood pressure dropped to 119/63. The patient currently on the IV labetalol as needed for the blood pressure. She was also on hydrochlorothiazide. She also was put on normal saline at 100 cc/hour given history of poor compliance, nausea and vomiting. Florinef was started by the primary team two days ago. Her current creatinine is 1.97. reported that her estimated EGFR was running between high 20s to low 30s. She used to see Dr. Olsen in followup for the CKD management and hypertension management. The patient reported having history of new-onset chest pain and left arm pain this morning. The troponin came back slightly elevated at 0.055. PAST MEDICAL HISTORY: 1. Insulin-dependent diabetes, complicated by diabetic nephropathy, retinopathy and peripheral neuropathy. 2. Chronic kidney disease stage 4 secondary to diabetes and hypertension. 3. Chronic hypertension. 4. Postural hypertension. 5. Atrial fibrillation status post ablation complicated by atrial rupture and cardiac tamponade after ablation. 6. Psoriatic arthritis. 7. TIA. 8. Chronic diarrhea. 9. Nephrolithiasis. PAST SURGICAL HISTORY: 1. Status post cardiac ablation. 2. Coronary artery disease, status post stent placement. 3. Status post appendectomy. 4. Status post hysterectomy. 5. Status post oophorectomy. 6. Status post cataract surgery. SOCIAL HISTORY: She is a retired ICU nurse. She used to work at the [facility]. FAMILY HISTORY: Noncontributory. ALLERGIES: 1. TETANUS VACCINE AND TOXOID. 2. HYDROMORPHONE. 3. PROCAINAMIDE. HOME MEDICATION: 1. Aspirin. 2. Plavix. 3. Lantus. 4. Humalog. 5. Nitroglycerin. PHYSICAL EXAMINATION: Vitals: Temperature 36.6, lying blood pressure 199/92, heart rate 77, sitting blood pressure 119/63, heart rate 78, respiratory rate 12. General appearance: Awake, alert, oriented x3. In no acute distress. Mild pain. Cervical collar in place. HEENT: Mild pallor. No jaundice. Cervical collar in place. Left scalp lacerated lesions status post stapled. No active bleeding. Dry and clean. Heart: Regular rhythm. Normal S1, S2. No murmurs, rubs, or gallops. Lungs: Clear to auscultation bilaterally. No wheezing. No rhonchi. Abdomen is soft, active bowel sounds. Nontender. Nondistended. No hepatosplenomegaly. No abdominal bruit noted. Extremity: No significant lower extremity edema. No cyanosis. No clubbing of fingers. Small subcentimeter sore noted on the left foot. LABORATORY: Sodium 143, potassium 3.5, chloride 111, bicarb 18, BUN 26, creatinine 1.97, glucose 133, hemoglobin 7.6, calcium 8.5, troponin 0.55. ASSESSMENT: 1. Orthostatic hypotension and supine hypertension. The patient has had history of longstanding hypertension was diagnosed approximately six years ago. The patient has been on a variety of treatment. According to the , secondary hypertension has been ruled out including renal artery stenosis and pheochromocytosis. He does not think that serum renin and aldosterone have been ordered before. Recently, Norvasc was added probably two months ago and, since then, she started having severe postural hypertension. Even though the medication was discontinued, she still experienced syncopal episode and that led to head and neck injury. During this hospitalization, her blood pressure has been extremely labile. Supine blood pressure is elevated, running between 140s to 200 systolic and sitting blood pressure was in 100-120. This is quite a challenging case of the labile hypertension. I do not have a straight answer at the moment. Yet, the etiology of severe postural hypertension is likely related to diabetic neuropathy/autonomic dysfunction given the fact that her heart rate did not raise during standing position. I do not think we should aim normal supine blood pressure since it will further drop her blood pressure while standing up. I would discontinue short-acting IV beta ruben. Will discontinue hydrochlorothiazide and Florinef. Will decrease her normal saline to 60 cc/hour. Since she has a high risk of the coronary artery disease and she had chest pain this morning, I will put her on low-dose Coreg 6.25 twice a day. My target supine blood pressure would be 180s, the sitting blood pressure probably 140s to 150 systolic. I will order compression stocking. Once, blood pressure is more steady and PT is required, we can give her midodrine 5 mg 1/2 hr prior to the physical therapy. I will order a renal artery sonogram with duplex to check renal artery blood flow. Will go ahead and order serum aldosterone and serum renin ratio. We will order plasma metanephrine. I would recommend to monitor her blood pressure only with the sitting position or elevate her head maybe 30-45 degrees. 2. Type 2 diabetes complicated by neuropathy, nephropathy and retinopathy. 3. Status post fall complicated by head and neck injury. Thank you for allowing me to participate in the care of your patient. We will monitor along with you closely. AVELINO
[2017-01-05] MEDS: Insulin GLARgine 100 Unit/mL Syringe SUBQ SCH (21:47)
[2017-01-06] VITALS (9 sets, daily range): BP systolic 168–221; BP diastolic 72–116; PULSE 71–87; RESP 16–22; O2SAT 95–100
[2017-01-06] MEDS: cefTRIAXone Inj 1,000 MG in Dextrose 5% Minibag Plus 50 ML IV SCH (02:40)
[2017-01-06 04:16] LABS: BASOPHILS % (AUTO) 0.2 % (0-3); EOSINOPHILS % (AUTO) 1.7 % (0-5); MONOCYTES % (AUTO) 12.6 % (4-12); Mean Corpuscular Hemoglobin 30.4 pg (27.0-35.0); Mean Corpuscular Volume 93.5 fL (81-100); NEUTROPHILS % (AUTO) 65.4 % (40-74); Platelet Count 242 bil/L (150-400)
[2017-01-06 04:54] LABS: Magnesium 1.7 mg/dL (1.6-2.6); Phosphorus 3.1 mg/dL (2.5-4.9); Unsaturated Iron Binding 87.3 ug/dL
[2017-01-06 05:19] LABS: TROPONIN T 0.056 ug/L (0.0-0.011)
[2017-01-06] MEDS: 0.9% Sodium Chloride 250 ML IV SCH (07:22)
--- NOTE | 2017-01-06 07:50 | NUR ---
HTN Pt continues to be hypertensive, with later vitals SBP 180s at 45 degree angle and above. MD notified, no orders at the time. This morning SBP 190s at 45 degree angle, pt denies symptoms. MD notified and stated to given morning Coreg early. Pt denied any arm/chest pain overnight. noted to have neck pain w/ certain movements and occasional spasm but denied need for pain medication. Pt stated she had a good night overall and slept well between care interventions.
[2017-01-06] MEDS: Ondansetron 2 mg/mL 2 mL Inj IVPUSH PRN (08:36)
[2017-01-06] MEDS: Insulin LISPRO 300 Unit/3 mL Inj SUBQ SCH ×4 (08:38→22:12)
[2017-01-06] MEDS: 0.9% Sodium Chloride 1,000 ML IV SCH (12:12)
--- NOTE | 2017-01-06 12:45 | PCM.PNMED ---
Subjective Date of Service Jan 06, 2017 Subjective She is comfortable today. No chest pain. No real arm pain. No diaphoresis. She denies any nausea. Minimal neck pain. She is having some spasms in her arms and legs intermittently but denies any weakness. No abdominal pain. No overnight events Exam Vital Signs Vital Sign - Last Date Time Temp Pulse Resp B/P Pulse Ox O2 Delivery O2 Flow Rate FiO2 01/06/17 12:39 37.2 71 20 211/81 98 Room Air Intake and Output 01/05/17 01/05/17 01/06/17 Cumulative From/Thru 15:00 23:00 07:00 01/02/17 19:18 - 01/06/17 05:27 Intake Total 1528 ml 1754 ml 200 ml 9530 ml Output Total 600 ml 1750 ml 6000 ml Balance 1528 ml 1154 ml -1550 ml 3530 ml Intake Oral 400 ml 200 ml 2120 ml IV Total 1528 ml 984 ml 7040 ml Packed Cells 370 ml 370 ml Output Urine Total 600 ml 1750 ml 6000 ml # Bowel Movements 0 Exam Alert and oriented -3, no distress. Fluent speech Anicteric sclera. Lungs are clear with normal rate and effort Heart is regular without murmur gallop or rub Abdomen soft nontender, flat Extremities are free of edema. Skin is free of rash or lesions. She is C-spine collar in place IVs and Medications Medications Reviewed: Medications were reviewed in detail Lab and Diagnostics Result Diagram: 01/06/1733901/06/17 034 Assessment & Plan Patient is a 71 year old female with history of atrial fibrillation, CKD, CAD s/ p stents, TIA, type 2 diabetes, and uncontrolled hypertension/diabetic autonomic dysreflexia who presents as a transfer from [facility] for a head laceration and C-spine fracture following a ground level fall. Chest pain, resolved. Her symptoms resolved with medical treatment. She is on no antiplatelets and beta-blockade. Her troponins were minimally elevated but stable. We will continue to treat her medically. Anemia of chronic disease, POA and active. She received 1 unit of blood yesterday is doing well. Hypertensive urgency, POA and active - Pt has history of uncontrolled hypertension, with multiple medication attempts. Unknown which meds were previously used other than amlodipine, which caused edema and worsened orthostatic hypotension beyond her baseline problem with that. - Labetalol 20 mg IV PRN. Goal SBP 170-180 for first 1-2 hours, then 140-160. - Pain control. We will add Nitropaste and increase from 6.25-12.5 twice a day carvedilol as added per nephrology. Cervical fracture, POA and active. Continue mobilization. - Per discussion with Jacey, pt to wear C-collar for 2 weeks, with follow up imaging and appointment with Dr. Miles in 2 weeks. No weakness or new numbness in any extremity. - Immobilization of neck with C-collar - Regular neurologic checks - Morphine 2-4 mg IV q4h PRN, seems to be related to her nausea and so has been changed to fentanyl. - Tylenol IV PRN - Zofran PRN No change to plans. orthostatic Hypotension/Autonomic Dysreflexia. POA and possibly active. -h/o falls and orthostatic Hypotension/Autonomic Dysreflexia. -unable to check orthostatic bp, -PT/ OT for deconditioned state - would like to see Nephrology as they were told they needed to follow up with Nephrology this week. Will consult for orthostatic hypotension and role of Florinef. Can continue Florinef for now. Continue IV fluid support. Changes as made by nephrology. We will continue to wrap her legs as well. She did have a fairly significant syncopal episode with a systolic blood pressure about 120 when sitting up yesterday. Type 2 diabetes, uncontrolled, with neuropathy and nephropathy. POA and stable. - Glucose was 212. Pt was on Lantus 12 U hs and 10 U AM, but is eating poorly - Lantus 12 U qhs - Humalog medium dose correctional scale - No signs of DKA. Follow clinically Acute kidney injury, POA and improving. Patient's creatinine was over 2 and is now trending towards 1.5. We will continue current measures without change. Chronic kidney disease Stage 4, POA - Reported baseline Cr 18, similar to today. - Continue to monitor CMP Try to avoid any contrast or other nephrotoxic agents. Urinary tract infection, POA had acute. - UA in [facility] showed 25 WBCs, mod RBC, neg nitrite, small LE, moderate bacteria. Pt reports chills, myalgias, fatigue. - UA repeat - Follow up on urine cultures at [facility] - Ceftriaxone IV, consider change to PO. Tachycardia, POA and resolved. - Pt has apparently not had issues with afib since the ablation, but she is tachycardic now. Likely secondary to pain. - Monitor on telemetry Coronary artery disease s/p stent to LAD. POA and active with chest pain as outlined above. - Continue aspirin - Hold Plavix for 1-2 days, restart if no signs of bleeding. Psoriatic arthritis, POA unstable - Stelara not available on formulary. Continue on discharge. Other Chronic Conditions Atrial fibrillation s/p ablation. Not active Atrial rupture - complication of ablation TIA Chronic diarrhea Kidney stones The patient is admitted under inpatient status with stay >2 midnights due to severity of illness. Discharge planning will be very complicated. We will continue to conversations regarding the most appropriate level of care for the patient leaves the hospital. VTE Prophylaxis: SCDs VTE Mechanical Devices: Anti-Embolic stockings Resuscitation Status: CPR: Attempt Resuscitation Jose Wiggins MD Jan 06, 2017 12:45
--- NOTE | 2017-01-06 14:24 | PCM.PNNEPH ---
Subjective Date of Service Jan 06, 2017 Subjective The patient was seen and examined and I have reviewed all the current medical information including Dr. Garcia's excellent evaluation. She has a 10 year history of very complicated diabetes mellitus. Her diabetes has been dictated by retinopathy, and peripheral neuropathy. She has also had considerable issues with hypertension. About 6 weeks ago she was placed on Norvasc and since that time has developed considerable symptoms of orthostasis. As a result of that she fell and had a stable odontoid fracture which she is in a heavy cervical collar. She admits only recently has she begun to be serious about her blood pressure and diabetes. She does restrict salt and does not drink alcohol. She also states that she was recently seen by a neurologist who felt the possibility of coexistent Parkinson's disease which could be certainly a consideration in her. She denies any episodes of diaphoresis or paradoxical hypertension with beta blockers. Most recently she has been laying supine. She has not had much oral intake mainly because of discomfort. She denies any headache, shortness of breath, nausea or vomiting. 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 Exam Vital Signs Vital Sign - Last Date Time Temp Pulse Resp B/P Pulse Ox O2 Delivery O2 Flow Rate FiO2 01/06/17 12:39 37.2 71 20 211/81 98 Room Air Intake and Output 01/05/17 01/05/17 01/06/17 Cumulative From/Thru 15:00 23:00 07:00 01/02/17 19:18 - 01/06/17 05:27 Intake Total 1528 ml 1754 ml 200 ml 9530 ml Output Total 600 ml 1750 ml 6000 ml Balance 1528 ml 1154 ml -1550 ml 3530 ml Intake Oral 400 ml 200 ml 2120 ml IV Total 1528 ml 984 ml 7040 ml Packed Cells 370 ml 370 ml Output Urine Total 600 ml 1750 ml 6000 ml # Bowel Movements 0 Exam HEENT examination is remarkable for pale sclera. Neck is supple without adenopathy, thyromegaly, or jugular venous distention. Lungs were clear to auscultation. Heart is regular and rhythmical with a grade 2 to 3/6 systolic ejection murmur and an S4 was noted. Abdomen is soft without any tenderness, rebound, guarding, masses, or hepatosplenomegaly. There was no evidence of an epigastric bruit. Extremities symmetrically evidence of any clubbing, cyanosis , edema, or [id number] nails. Skin turgor was good and there is no evidence of any rashes. Lab and Diagnostics Result Diagram: 01/06/1733901/06/17339 Plan Impression Impression #1 retention with hypertensive heart disease and hypertensive nephrosclerosis number to orthostatic changes secondary to amlodipine versus peripheral autonomic neuropathy #3 diabetic renal disease Recommendations #1 Dr. Garcia-has already undertaken reevaluation of her factors for blood pressure and we will wait to return. The meantime I would to get urine protein creatinine ratio, serum protein electrophoresis, and uric acid. I would also like to start her on labetalol 100 mg every 8 hours. As she tolerates this gradually increase the drug dosage. I would also like to see him anytime the patient is moved out of the supine position either up in the chair or even sitting on the edge of the bed would like to seek Gabriele bandage is applied on both distal lower extremities up to the knee. Luis Vinson DO Jan 06, 2017 14:24
--- NOTE | 2017-01-06 14:29 | ED.REPORT ---
HPI-Abd Pain F 2 and Over Date of Service Jan 06, 2017 ED Provider: Nursing Notes Stated Complaint: DIARRHEA ILLNESS, SYNCOPE, HYPOVOLEMIA Allergies: Coded Allergies: Tetanus Vaccines and Toxoid (Verified Allergy, Severe, 01/02/17) ARRHTYMIA procainamide (Verified Allergy, Severe, 01/02/17) ARRHTYMIA hydromorphone (Verified Adverse Reaction, Severe, Nausea, Feeling Sick, 01/02/17) Scheduled Aspirin (Aspirin) 81 Mg Tablet 81 MG PO DAILY Clopidogrel Bisulfate (Plavix) 75 Mg Tablet 75 MG PO DAILY Insulin Glargine (Lantus U100 Solostar Insulin Pen) 100 Unit/1 Ml Insuln.pen 10 UNIT SUBQ AM Insulin Glargine (Lantus U100 Solostar Insulin Pen) 100 Unit/1 Ml Insuln.pen 12 UNIT SUBQ HS Insulin Human Lispro (HumaLOG U100 Insulin Vial) 100 Unit/Ml Unit 1 UNIT SUBQ ACHS Check blood sugars before meals and at bedtime. Use correction factor only before meals. Blood Sugar Lispro Correction: <151, 0 units; 151-175, 1 unit; 176-200, 2 units; 201-225, 3 units; 226-250, 4 units; 251-275, 5 units; 276-300 , 6 units; 301-325, 7 units; 326-350, 8 units; 351-375, 9 units; 376-400, 10 units; >400, 12 units. Scheduled PRN Nitroglycerin SL (Nitroglycerin SL) 0.4 Mg Tab.subl 0.4 MG SL PRN CHEST PAIN Physical Exam Initial Vital Signs Vital Signs (First) Date Time Temp Pulse Resp B/P Pulse Ox O2 Delivery O2 Flow Rate FiO2 01/02/17 18:38 36.6 100 16 224/119 99 Room Air Interpretation & Diagnostics Lab Results Interpretation Result Diagram: 01/06/17 0340 01/06/17 0340 Test 01/02/17 21:10 01/02/17 23:46 01/03/17 05:54 01/04/17 05:45 Procalcitonin 0.08ng/mL (0.00-0.08) Urine Color Straw (YELLOW) Urine Appearance Clear (CLEAR,HAZY) Urine pH 6.0 (5.0-8.0) Urine Specific Leggett 1.020 (1.003-1.035) Urine Protein >300mg/dL (NEG,TRACE) Urine Glucose (UA) 500mg/dL (NEGATIVE) Urine Ketones Tracemg/dL (NEGATIVE) Urine Occult Blood Moderate (NEGATIVE) Urine Nitrite Negative (NEGATIVE) Urine Bilirubin Negative (NEGATIVE) Urine Urobilinogen Normalmg/dL (NORMAL) Urine Leukocyte Esterase Negative (NEGATIVE) Urine RBC 3-10/hpf (0-2) Urine WBC 11-50/hpf (0-5) Urine Epithelial Cells Few/hpf (NONE-MOD) Urine Crystals None seen (NONE SEEN) Urine Bacteria Few/hpf (NONE-FEW) Urine Hyaline Casts None/lpf (NONE) Urine Granular Casts Occasional (NONE SEEN) Urine Waxy Casts None seen (NONE SEEN) Urine Red Blood Cell Casts None seen (NONE SEEN) Urine White Blood Cell Casts None seen (NONE SEEN) Urine Mucus None seen (None Seen) Urine Trichomonas None seen (NONE SEEN) Urine Yeast None (NONE SEEN) Urinalysis Comment None Urine Culture Reflexed Indicated Amylase Level 33U/L (28-100) Lipase 21U/L (13-60) Hemoglobin A1c 7.6% (4.8-5.6) Test 01/06/17 03:40 White Blood Count 6.0th/mm3 (3.8-10.1) Red Blood Count 3.22mil/mm3 (3.90-5.20) Hemoglobin 9.8g/dL (12.0-15.6) Hematocrit 30.1% (35.0-46.0) Mean Corpuscular Volume 93.5fL (81-100) Mean Corpuscular Hemoglobin 30.4pg (27.0-35.0) Mean Corpuscular Hemoglobin Concent 32.6% (32.0-37.0) Red Cell Distribution Width 15.4% (12.3-15.4) Platelet Count 242bil/L (150-400) Neutrophils (%) (Auto) 65.4% (40-74) Lymphocytes (%) (Auto) 19.9% (14-46) Monocytes (%) (Auto) 12.6% (4-12) Eosinophils (%) (Auto) 1.7% (0-5) Basophils (%) (Auto) 0.2% (0-3) Sodium Level 141mEq/L (134-144) Potassium Level 3.7mEq/L (3.5-5.2) Chloride Level 108mEq/L (97-108) Carbon Dioxide Level 21mmol/L (18-29) Blood Urea Nitrogen 22mg/dL (8-27) Creatinine 1.68mg/dL (0.57-1.00) Estimat Glomerular Filtration Rate 43mL/min (>59) Glucose Level 218mg/dL (60-99) Calcium Level 8.7mg/dL (8.5-10.1) Phosphorus Level 3.1mg/dL (2.5-4.9) Magnesium Level 1.7mg/dL (1.6-2.6) Iron Level 48ug/dL (35-150) Total Iron Binding Capacity 135ug/dL (250-450) Percent Iron Saturation 36%sat (15-50) Unsaturated Iron Binding 87.3ug/dL Ferritin 107ng/mL (13-150) Total Bilirubin 0.2mg/dL (0.0-1.2) Aspartate Amino Transf (AST/SGOT) 15U/L (0-50) Alanine Aminotransferase (ALT/SGPT) 9U/L (0-32) Alkaline Phosphatase 68U/L (25-165) Troponin T 0.056ug/L (0.0-0.011) Total Protein 5.4g/dL (6.4-8.4) Albumin 2.3g/dL (3.4-5.0) Parathyroid Hormone (Intact) 86pg/mL (15-65) Discharge & Departure Referrals: Geronimo Gonzales MD (PCP) Luis Vinson DO Jan 06, 2017 14:29
--- NOTE | 2017-01-06 16:10 | NUR ---
Social WorK: Multidisciplinary Rounds Pt discussed in am rounds. Pt continues to require hospitalization. Sw and d/c needs remain unknown. MD is speaking with spouse today to discuss discharge plan and services pt may require for discharge. MD believes spouse is reluctant to skilled rehab. PT will attempt to see the patient today. CANTEEN MANAGER will be unable to see the patient today due to high census. FARHAN Reis
--- NOTE | 2017-01-06 18:06 | NUR ---
HTN/muscle spasms Pt continues to have HTN with no symptoms of headache, dizziness or vision changes. Put on new nitro bid patch as well as gave labetolol with really no effect. Pt also in a lot of pain, and is not interested in taking any narcotic pain meds, so got order for muscle relaxant which seemed to be helpful to her for spasms in neck and back. Pt able to help turn somewhat and hold c-collar when being scooted up in bed. Family at bedside most of shift.
[2017-01-06] MEDS: Insulin GLARgine 100 Unit/mL Syringe SUBQ SCH (22:13)
[2017-01-07] VITALS (9 sets, daily range): BP systolic 185–222; BP diastolic 96–106; PULSE 71–85; RESP 16–20; O2SAT 94–98
[2017-01-07] MEDS: cefTRIAXone Inj 1,000 MG in Dextrose 5% Minibag Plus 50 ML IV SCH (02:02)
[2017-01-07 03:58] LABS: Unsaturated Iron Binding 109.1 ug/dL
[2017-01-07 04:09] LABS: Vitamin D, 25-Hydroxy 12.3 ng/mL (30.0-100.0)
--- NOTE | 2017-01-07 05:47 | NUR ---
HTN/Spasms Patient continues to be hypertensive with systolic BPs 160-220. Patient denies headache, visual changes, dizziness. PO labetalol given with improvement in pressure from 220 to 160. Patient reports intermittent spasms in her neck, associated with repositioning in bed. Flexeril given per orders with partial improvement in symptoms.
[2017-01-07] MEDS ORDERED: Acetaminophen IV 1,000 MG in IV Premix 1 EACH IV PRN (07:20)
[2017-01-07] MEDS: 0.9% Sodium Chloride 250 ML IV SCH (07:55)
[2017-01-07] MEDS: 0.9% Sodium Chloride 1,000 ML IV SCH (08:07)
[2017-01-07] MEDS: Insulin LISPRO 300 Unit/3 mL Inj SUBQ SCH ×4 (08:18→22:00)
[2017-01-07] MEDS ORDERED: Darbepoetin Alfa 40 mCg/0.4 mL Inj SUBQ ONE (10:10)
--- NOTE | 2017-01-07 10:12 | PCM.PNNEPH ---
Subjective Date of Service Jan 07, 2017 Subjective Patient's blood pressure is continuing to improve slowly. She did have a slight increase in her creatinine however I feel this may be due to her blood pressure beginning to have normal readings. She still has some intermittent pain in her upper back and neck and is tolerating her diet. She denies any headache, chest pain, shortness of breath, nausea or vomiting. Her intake and output last 24 hours shows 1590 N and 2900 out. Her hemoglobin this morning is 9.8 and her transferrin saturation is 25%. Her sodium is 144, potassium 3.6, chloride of 100 bicarbonate 20 BUN and creatinine are 25.8 respectively. Exam Vital Signs Vital Sign - Last Date Time Temp Pulse Resp B/P Pulse Ox O2 Delivery O2 Flow Rate FiO2 01/07/17 08:46 77 01/07/17 07:51 36.8 16 200/96 97 Room Air Intake and Output 01/06/17 01/06/17 01/07/17 Cumulative From/Thru 15:00 23:00 07:00 01/02/17 19:18 - 01/07/17 05:56 Intake Total 690 ml 700 ml 1581 ml 48400 ml Output Total 1150 ml 600 ml 7750 ml Balance 690 ml -450 ml 981 ml 4751 ml Intake Oral 700 ml 400 ml 3220 ml IV Total 690 ml 1181 ml 8911 ml Packed Cells 370 ml Output Urine Total 1150 ml 600 ml 7750 ml # Bowel Movements 0 0 Exam HEENT examination is remarkable for pale sclera. Neck is supple without adenopathy, thyromegaly, or jugular venous distention. Heart regular and rhythmical with a soft systolic murmur. Abdomen is soft without any tenderness rebound guarding masses or hepatosplenomegaly. The original 20 evidence of any clubbing, cyanosis, or edema. Skin turgor is good. Lab and Diagnostics Result Diagram: 01/06/17 0340 01/07/17 0325 Plan Impression Impression #1 hypertension with hypertensive heart disease and hypertensive nephrosclerosis number to orthostatic hypotension #3 diabetic nephropathy #4 anemia secondary to chronic kidney disease Recommendations #1 like to decrease her IV fluids to 40 mL as she is taking adequate oral intake. Would like to change the dose of labetalol to 200 mg twice a day. In addition I would like her on Aranesp 40 mg once a week and I will give her her first dose today. Luis Vinson DO Jan 07, 2017 10:12
--- NOTE | 2017-01-07 14:05 | NUR ---
NUTRITION FOLLOW-UP: ASSESS: Pt is a 71 YO female admitted with head laceration and C-spine fracture following a ground level fall. Pt has had persistent nausea/vomiting and diarrhea. Per H&P pt has had poor PO intake for the last 2 weeks. She is currently on a heart healthy consistent carbohydrate diet; however PO intake remains inconsistent, bites - 100% trays. PMHX: T2DM, HTN, CKD stg 4, CAD, TIA LABS:Reviewed. Chloride 109 Cr 1.81, Glu 198, Ca 8.3. MEDS: Reviewed. Insulin, zofran. GI: 0 BM noted x 5 D. SKIN: Dc 16, head laceration, bruising. WT: 85.7 kg, CMI 30.0 kg/m2. Admit weight: 87.5kg, BMI 31.1 kg/m2, IBW: 59.1 kg DIET: Heart healthy consistent carb. Inconsistent PO intake, 0 - 100% trays. EST. NEEDS: Kcals: 2185-2625kcal/day (25-30kcal/kg) Pro: 70-90g/day (1.2-1.5g/kg IBW) NUTRITION DIAGNOSIS: 1) Inadequate oral intake related to altered GI function as evidence by poor PO intake x 2 weeks and persistent nausea/vomiting - SLIGHTLY IMPROVED. NUTRITION INTERVENTION: 1) Will continue Ensure Clear Liquid on B and L trays, Gelatein on D tray to help increase kcal/pro/fluid intake while pt has n/v. MONITOR / EVAL: PO, GI, labs, wt, POC, nutrition status. Will continue to monitor per high nutrition risk guidelines.
--- NOTE | 2017-01-07 14:13 | PCM.PNMED ---
Subjective Date of Service Jan 07, 2017 Subjective She is doing well today. She denies any chest pain. No nausea. No abdominal pain. She is breathing while denies any dyspnea. She did have a bowel movement yesterday. She has less orthostatic change with sitting up but is still symptomatic with feeling lightheaded. Minimal neck pain and intermittent spasm in her upper thorax and arms. No overnight events Exam Vital Signs Vital Sign - Last Date Time Temp Pulse Resp B/P Pulse Ox O2 Delivery O2 Flow Rate FiO2 01/07/17 11:48 37.0 71 20 188/99 97 Room Air Intake and Output 01/06/17 01/06/17 01/07/17 Cumulative From/Thru 15:00 23:00 07:00 01/02/17 19:18 - 01/07/17 05:56 Intake Total 690 ml 700 ml 1581 ml 15026 ml Output Total 1150 ml 600 ml 7750 ml Balance 690 ml -450 ml 981 ml 4751 ml Intake Oral 700 ml 400 ml 3220 ml IV Total 690 ml 1181 ml 8911 ml Packed Cells 370 ml Output Urine Total 1150 ml 600 ml 7750 ml # Bowel Movements 0 0 Exam Alert and oriented -3, no distress. Fluent speech. C-collar in place Anicteric sclera. Lungs are clear with normal rate and effort Heart is regular without murmur gallop or rub Abdomen soft nontender, flat Extremities with 1+ edema Skin is free of rash or lesions. Good motor strength of arms and legs IVs and Medications Medications Reviewed: Medications were reviewed in detail Lab and Diagnostics Result Diagram: 01/06/17 0340 01/07/17 0325 Assessment & Plan Patient is a 71 year old female with history of atrial fibrillation, CKD, CAD s/ p stents, TIA, type 2 diabetes, and uncontrolled hypertension/diabetic autonomic dysreflexia who presents as a transfer from [facility] for a head laceration and C-spine fracture following a ground level fall. Chest pain, resolved. Continue current medical management, no further workup at this time. Hypertensive urgency, POA and improving - Pt has history of uncontrolled hypertension, with multiple medication attempts. Unknown which meds were previously used other than amlodipine, which caused edema and worsened orthostatic hypotension beyond her baseline problem with that. - Labetalol 20 mg IV PRN. Goal SBP 170-180 for first 1-2 hours, then 140-160. - Pain control. At this point are titrating up labetalol from 100 twice a day 200 2 times a day. Cervical fracture, POA and active. Continue immobilization. - Per discussion with Jacey, pt to wear C-collar for 2 weeks, with follow up imaging and appointment with Dr. Miles in 2 weeks. No weakness or new numbness in any extremity. - Immobilization of neck with C-collar - Regular neurologic checks - Morphine 2-4 mg IV q4h PRN, seems to be related to her nausea and so has been changed to fentanyl. - Tylenol IV PRN - Zofran PRN No change to plans. orthostatic Hypotension/Autonomic Dysreflexia. POA and possibly active. -h/o falls and orthostatic Hypotension/Autonomic Dysreflexia. -unable to check orthostatic bp, -PT/ OT for deconditioned state - Changes as made by nephrology. We will continue to wrap her legs as well. She did have a fairly significant syncopal episode with a systolic blood pressure about 120 2 days ago. She had less orthostasis this morning but still felt lightheaded.. Type 2 diabetes, uncontrolled, with neuropathy and nephropathy. POA and stable. - Glucose was 212. Pt was on Lantus 12 U hs and 10 U AM, but is eating poorly - Lantus 12 U qhs - Humalog medium dose correctional scale - No signs of DKA. Follow clinically Acute kidney injury, POA and improving. Patient's creatinine was over 2 and is now trending towards 1.5. We will continue current measures without change. Chronic kidney disease Stage 4, POA - Reported baseline Cr 18, similar to today. - Continue to monitor CMP Try to avoid any contrast or other nephrotoxic agents. Urinary tract infection, POA had acute. - UA in [facility] showed 25 WBCs, mod RBC, neg nitrite, small LE, moderate bacteria. Pt reports chills, myalgias, fatigue. - UA repeat - Follow up on urine cultures at [facility] - Ceftriaxone IV, consider change to PO. Tachycardia, POA and resolved. - Pt has apparently not had issues with afib since the ablation, but she is tachycardic now. Likely secondary to pain. - Monitor on telemetry Coronary artery disease s/p stent to LAD. POA and active with chest pain as outlined above. - Continue aspirin - Hold Plavix for 1-2 days, restart if no signs of bleeding. Psoriatic arthritis, POA unstable - Stelara not available on formulary. Continue on discharge. Atrial fibrillation s/p ablation. Not active Atrial rupture - complication of ablation Remote TIA Chronic diarrhea Remote Kidney stones The patient is admitted under inpatient status with stay >2 midnights due to severity of illness. Discharge planning will be very complicated. We will continue to conversations regarding the most appropriate level of care for the patient leaves the hospital. VTE Prophylaxis: SCDs VTE Mechanical Devices: Anti-Embolic stockings Resuscitation Status: CPR: Attempt Resuscitation Jose Wiggins MD Jan 07, 2017 14:13
--- NOTE | 2017-01-07 15:39 | NUR ---
Social Work: Multidisciplinary Rounds Pt discussed in am rounds. Sw discharge plan still remains unclear as pt is unable to fully participate with therapies due to medical status. Per MD, spouse is adamant that he wants pt discharged to inpatient rehab at [facility]. Sw will continue to follow pt's progress and assess for d/c needs FARHAN Reis
--- NOTE | 2017-01-07 18:45 | NUR ---
HTN/Pain/Activity Patient a/o x 3, c/o neck spasms x 1, Tylenol given with good effect. Patient able to turn self in bed. SBP 180-200's, MD aware and meds adjusted per Neph MD. Patient able to dangle at edge of bed with 1 person assist for approx 5 min. Slight orthostatic drop in SBP to 180's with sitting. Attempted to stand patient, but patient became limp and had to lie back in bed. Lalo Lerma patent yellow uop.
[2017-01-07] MEDS: Insulin GLARgine 100 Unit/mL Syringe SUBQ SCH (22:15)
[2017-01-08] VITALS (8 sets, daily range): BP systolic 177–217; BP diastolic 88–104; PULSE 74–90; RESP 16–20; O2SAT 94–97
[2017-01-08] MEDS: cefTRIAXone Inj 1,000 MG in Dextrose 5% Minibag Plus 50 ML IV SCH (01:44)
--- NOTE | 2017-01-08 05:53 | NUR ---
Hypertension/Pain Patient continues to be hypertensive with SBP 180-220. Woke up from sleep with headache that gradually increased to 10/10. Tylenol and cyclobenzaprine given and patient able to go back to sleep. Pain resolved completely by the next time patient woke up.
[2017-01-08] MEDS: 0.9% Sodium Chloride 250 ML IV SCH (07:05)
[2017-01-08] MEDS: Insulin LISPRO 300 Unit/3 mL Inj SUBQ SCH ×4 (08:00→22:00)
[2017-01-08] MEDS: 0.9% Sodium Chloride 1,000 ML IV SCH (09:27)
--- NOTE | 2017-01-08 11:38 | PCM.PNNEPH ---
Subjective Date of Service Jan 08, 2017 Subjective Patient's blood pressure home has had some improvement with medication but still remains quite elevated. In further questioning the patient she states that the past she has had a history of obstructive sleep apnea and has used a CPAP in the past but currently does not use it. She also states that in the past she has had a history of a cough secondary to lisinopril. She denies any headache, chest pain, or shortness of breath. Her urine protein creatinine ratio shows 7.9 g of protein. Exam Vital Signs Vital Sign - Last Date Time Temp Pulse Resp B/P Pulse Ox O2 Delivery O2 Flow Rate FiO2 01/08/17 08:25 78 01/08/17 08:17 36.9 16 217/100 97 Room Air Intake and Output 01/07/17 01/07/17 01/08/17 Cumulative From/Thru 15:00 23:00 07:00 01/02/17 19:18 - 01/08/17 06:48 Intake Total 1282 ml 755 ml 66085 ml Output Total 800 ml 1400 ml 9950 ml Balance 482 ml -645 ml 4588 ml Intake Oral 760 ml 350 ml 4330 ml IV Total 522 ml 405 ml 9838 ml Packed Cells 370 ml Output Urine Total 800 ml 1400 ml 9950 ml # Bowel Movements 0 Exam Neck is supple without adenopathy, thyromegaly, or jugular venous distention. Lungs are clear to auscultation. Heart was regular and rhythmical with a soft systolic murmur. Abdomen is soft without any tenderness rebound guarding masses or hepatosplenomegaly. Extremities do not show any evidence of any clubbing, cyanosis, or edema. Skin turgor is good. Lab and Diagnostics Result Diagram: 01/06/17 0340 01/07/17 0325 Plan Impression Impression #1 hypertension with hypertensive heart disease and hypertensive nephrosclerosis #2 nephrotic range proteinuria secondary to diabetic nephropathy #3 anemia secondary to chronic kidney disease number for orthostatic hypertension Recommendations #1 I will increase her labetalol to 200 mg every 8 hours also like to add [place] 100 mg once a day. We need to continue to ambulate her as tolerated and I await her echocardiogram. Luis Vinson DO Jan 08, 2017 11:38
--- NOTE | 2017-01-08 14:50 | NUR ---
Social Work: Multidisciplinary Rounds/Continued Discharge Planning D: Pt discussed in am rounds. Pt is not medically stable for discharge. Nephrology continues to work on pt's BP and PT continues to work with pt. Recommendations still remain for skilled rehab via BLS due to pt's inability to maintain safe uprighted seated position. Pt's spouse has been very resistant to the pt going to skilled rehab and wishes for her to go to inpatient rehab. At this time, pt's ability to engage in 3 hours of intense therapy is limited. Spouse hopes that as pt's medical conditions improve, she will be able to advance her activity tolerance. At this time, no SNF referrals have been placed as spouse does not want this. No orders have been placed for discharge planning of any sort. A: Pt who was previously I but suffered spinal fracture and head lac after a ground level fall secondary to medical conditions. P: Evolving; [employer] will continue to follow closely to assess for pt's ability to engage in intensive inpatient rehab therapies and will coordinate with spouse re: dcp when appropriate. FARHAN Reis
--- NOTE | 2017-01-08 15:08 | PCM.PNMED ---
Subjective Date of Service Jan 08, 2017 Subjective She is doing well today. She is able to stand up for almost 10 minutes without overt hypotension or dizziness. She denies any palpitations or chest pain. No abdominal pain. Nephrology is adjusting her medications today for blood pressure. Her orthostasis seems to be slowly improving. No overnight events noted. Exam Vital Signs Vital Sign - Last Date Time Temp Pulse Resp B/P Pulse Ox O2 Delivery O2 Flow Rate FiO2 01/08/17 14:57 36.8 87 16 182/88 97 Room Air Intake and Output 01/07/17 01/07/17 01/08/17 Cumulative From/Thru 15:00 23:00 07:00 01/02/17 19:18 - 01/08/17 06:48 Intake Total 1282 ml 755 ml 80878 ml Output Total 800 ml 1400 ml 9950 ml Balance 482 ml -645 ml 4588 ml Intake Oral 760 ml 350 ml 4330 ml IV Total 522 ml 405 ml 9838 ml Packed Cells 370 ml Output Urine Total 800 ml 1400 ml 9950 ml # Bowel Movements 0 Exam Alert and oriented -3, no distress. Fluent speech, c-collar Anicteric sclera. Lungs are clear with normal rate and effort Heart is regular without murmur gallop or rub Abdomen soft nontender, flat Extremities are free of edema. Skin is free of rash or lesions. IVs and Medications Medications Reviewed: Medications were reviewed in detail Lab and Diagnostics Result Diagram: 01/06/17 0340 01/07/17 0325 Assessment & Plan Patient is a 71 year old female with history of atrial fibrillation, CKD, CAD s/ p stents, TIA, type 2 diabetes, and uncontrolled hypertension/diabetic autonomic dysreflexia who presents as a transfer from [facility] for a head laceration and C-spine fracture following a ground level fall. Chest pain, resolved. Continue current medical management, no further workup at this time. Hypertensive urgency, POA and improving - Pt has history of uncontrolled hypertension, with multiple medication attempts. Unknown which meds were previously used other than amlodipine, which caused edema and worsened orthostatic hypotension beyond her baseline problem with that. - Labetalol 20 mg IV PRN. Goal SBP 170-180 for first 1-2 hours, then 140-160. - Pain control. At this point are titrating up labetalol 200 mg 3 times a day. Add losartan. This is being handled by nephrology. Continue extremity wraps. Cervical fracture, POA and active. Continue immobilization with cervical collar.. - Per discussion with Jacey, pt to wear C-collar for 2 weeks, with follow up imaging and appointment with Dr. Miles in 2 weeks. No weakness or new numbness in any extremity. - Immobilization of neck with C-collar - Regular neurologic checks - Morphine 2-4 mg IV q4h PRN, seems to be related to her nausea and so has been changed to fentanyl. - Tylenol IV PRN - Zofran PRN No change to plans. orthostatic Hypotension/Autonomic Dysreflexia. POA and possibly active. -h/o falls and orthostatic Hypotension/Autonomic Dysreflexia. -unable to check orthostatic bp, -PT/ OT for deconditioned state - No change to the current management plan. Type 2 diabetes, uncontrolled, with neuropathy and nephropathy. POA and stable. - Glucose was 212. Pt was on Lantus 12 U hs and 10 U AM, but is eating poorly - Lantus 12 U qhs - Humalog medium dose correctional scale - No signs of DKA. Follow clinically, no changes. Acute kidney injury, POA and improving. Continues to improve, will follow laboratories. Chronic kidney disease Stage 4, POA - Reported baseline Cr 18, similar to today. - Continue to monitor CMP Try to avoid any contrast or other nephrotoxic agents. Urinary tract infection, POA had acute. - UA in [facility] showed 25 WBCs, mod RBC, neg nitrite, small LE, moderate bacteria. Pt reports chills, myalgias, fatigue. - UA repeat - Follow up on urine cultures at [facility] - Ceftriaxone IV, consider change to PO. Tachycardia, POA and resolved. - Pt has apparently not had issues with afib since the ablation, but she is tachycardic now. Likely secondary to pain. - Monitor on telemetry Coronary artery disease s/p stent to LAD. POA and active with chest pain as outlined above. - Continue aspirin - Hold Plavix for 1-2 days, restart if no signs of bleeding. Psoriatic arthritis, POA unstable - Stelara not available on formulary. Continue on discharge. Atrial fibrillation s/p ablation. Not active Atrial rupture - complication of ablation Remote TIA Chronic diarrhea Remote Kidney stones The patient is admitted under inpatient status with stay >2 midnights due to severity of illness. Discharge planning will be very complicated. We will continue to conversations regarding the most appropriate level of care for the patient leaves the hospital. VTE Prophylaxis: SCDs VTE Mechanical Devices: Anti-Embolic stockings Resuscitation Status: CPR: Attempt Resuscitation Jose Wiggins MD Jan 08, 2017 15:08
--- NOTE | 2017-01-08 15:17 | NUR ---
PT/Orthostatics Patient a/o x 3, c/o neck spasms and head pain, Flexeril x 1 given with moderate effect. Patient able to get up with PT and dangle on bed for approx 6 min and stand for 1 min. B/P lying 194/94 sitting 191/79. Patient denied any sensation of passing out but had increased neck pain with standing and requested to sit after one minute.
[2017-01-08] MEDS: Insulin GLARgine 100 Unit/mL Syringe SUBQ SCH (22:55)
[2017-01-09] VITALS (9 sets, daily range): BP systolic 170–208; BP diastolic 73–100; PULSE 74–84; RESP 16–22; O2SAT 94–100
[2017-01-09] MEDS: cefTRIAXone Inj 1,000 MG in Dextrose 5% Minibag Plus 50 ML IV SCH (01:46)
[2017-01-09] MEDS: 0.9% Sodium Chloride 1,000 ML IV SCH ×2 (05:07→20:27)
--- NOTE | 2017-01-09 05:54 | NUR ---
BP/Pain/C-Collar Patient's SBP ranged from 170-190s this shift. Denies pain overnight, but does note some pressure and irritation from the c-collar on her chin and shoulders. Gauze padding provided to cushion the edges of the collar. Continue to monitor.
[2017-01-09] MEDS: 0.9% Sodium Chloride 250 ML IV SCH (07:55)
[2017-01-09] MEDS: Insulin LISPRO 300 Unit/3 mL Inj SUBQ SCH ×4 (08:00→22:00)
--- NOTE | 2017-01-09 12:37 | PCM.PNMED ---
Subjective Date of Service Jan 09, 2017 Subjective She is doing well today. No nausea or abdominal pain. No chest pain or shortness of breath. She is able to stand for 6 minutes yesterday. No overnight events. Exam Vital Signs Vital Sign - Last Date Time Temp Pulse Resp B/P Pulse Ox O2 Delivery O2 Flow Rate FiO2 01/09/17 10:07 80 01/09/17 08:37 37.2 16 208/100 96 Room Air Intake and Output 01/08/17 01/08/17 01/09/17 Cumulative From/Thru 15:00 23:00 07:00 01/02/17 19:18 - 01/09/17 06:45 Intake Total 952 ml 1995 ml 61094 ml Output Total 1300 ml 900 ml 29624 ml Balance -348 ml 1095 ml 5335 ml Intake Oral 600 ml 1575 ml 6505 ml IV Total 352 ml 420 ml 32038 ml Packed Cells 370 ml Output Urine Total 1300 ml 900 ml 67205 ml # Bowel Movements 0 0 Exam Alert and oriented -3, no distress. Fluent speech, cervical collar Anicteric sclera. Lungs are clear with normal rate and effort Heart is regular without murmur gallop or rub Abdomen soft nontender, flat Extremities are free of edema. Skin is free of rash or lesions. IVs and Medications Medications Reviewed: Medications were reviewed in detail Lab and Diagnostics Result Diagram: 01/06/17 0340 01/09/17 0420 Assessment & Plan Patient is a 71 year old female with history of atrial fibrillation, CKD, CAD s/ p stents, TIA, type 2 diabetes, and uncontrolled hypertension/diabetic autonomic dysreflexia who presents as a transfer from [facility] for a head laceration and C-spine fracture following a ground level fall. Chest pain, resolved. Continue current medical management, no further workup at this time. Hypertensive urgency, POA and improving At this point are titrating up labetalol 200 mg 3 times a day. Add losartan. This is being handled by nephrology. Continue extremity wraps. Cervical fracture, POA and active. Continue immobilization with cervical collar.. - Per discussion with norma Mari to wear C-collar for 2 weeks, with follow up imaging and appointment with Dr. Miles in 2 weeks. No weakness or new numbness in any extremity. - Immobilization of neck with C-collar - Regular neurologic checks - Morphine 2-4 mg IV q4h PRN, seems to be related to her nausea and so has been changed to fentanyl. - Tylenol IV PRN - Zofran PRN No change to plans. orthostatic Hypotension/Autonomic Dysreflexia. POA and possibly active and slowly improving. -h/o falls and orthostatic Hypotension/Autonomic Dysreflexia. -unable to check orthostatic bp, -PT/ OT for deconditioned state - No change to the current management plan. Continue daily physical therapy. Type 2 diabetes, uncontrolled, with neuropathy and nephropathy. POA and stable. - Glucose was 212. Pt was on Lantus 12 U hs and 10 U AM, but is eating poorly - Lantus 12 U qhs - Humalog medium dose correctional scale - No signs of DKA. Follow clinically, no changes. Reasonable control Acute kidney injury, POA and improving. Continues to improve, will follow laboratories. Continue normal saline at low rate. Chronic kidney disease Stage 4, POA - Reported baseline Cr 18, similar to today. - Continue to monitor CMP Try to avoid any contrast or other nephrotoxic agents. Urinary tract infection, POA and acute. - UA in [facility] showed 25 WBCs, mod RBC, neg nitrite, small LE, moderate bacteria. Pt reports chills, myalgias, fatigue. - UA repeat - Follow up on urine cultures at [facility] - Ceftriaxone IV, consider change to PO. Urine culture is no growth versus 1000 CFU's. Will stop antibiotics today. Tachycardia, POA and resolved. - Pt has apparently not had issues with afib since the ablation, but she is tachycardic now. Likely secondary to pain. - Monitor on telemetry Coronary artery disease s/p stent to LAD. POA and active with chest pain as outlined above. - Continue aspirin - Hold Plavix for 1-2 days, restart if no signs of bleeding. Psoriatic arthritis, POA unstable - Stelara not available on formulary. Continue on discharge. Atrial fibrillation s/p ablation. Not active Atrial rupture - complication of ablation Remote TIA Chronic diarrhea Remote Kidney stones The patient is admitted under inpatient status with stay >2 midnights due to severity of illness. Discharge planning will be very complicated. We will continue to conversations regarding the most appropriate level of care for the patient leaves the hospital. VTE Prophylaxis: SCDs VTE Mechanical Devices: Anti-Embolic stockings Resuscitation Status: CPR: Attempt Resuscitation Jose Wiggins MD Jan 09, 2017 12:37
--- NOTE | 2017-01-09 16:18 | PCM.PNNEPH ---
Subjective Date of Service Jan 09, 2017 Subjective Patient's blood pressure is slowly improving. She was able to ambulate yesterday without any significant orthostatic symptoms. Exam Vital Signs Vital Sign - Last Date Time Temp Pulse Resp B/P Pulse Ox O2 Delivery O2 Flow Rate FiO2 01/09/17 15:14 36.8 74 18 189/88 98 Room Air Intake and Output 01/08/17 01/08/17 01/09/17 Cumulative From/Thru 15:00 23:00 07:00 01/02/17 19:18 - 01/09/17 06:45 Intake Total 952 ml 1995 ml 53413 ml Output Total 1300 ml 900 ml 19412 ml Balance -348 ml 1095 ml 5335 ml Intake Oral 600 ml 1575 ml 6505 ml IV Total 352 ml 420 ml 05572 ml Packed Cells 370 ml Output Urine Total 1300 ml 900 ml 78722 ml # Bowel Movements 0 0 Exam HEENT examination is remarkable for pale sclera. Neck is supple without adenopathy, thyromegaly, or jugular venous distention. Lab and Diagnostics Result Diagram: 01/06/17 0340 01/09/17 0420 Plan Impression Impression #1 diabetic nephropathy #2 hypertension with hypertensive heart disease and hypertensive nephrosclerosis #3 anemia secondary to chronic kidney disease Recommendations #1 I would like to add 25 mg of chlorthalidone once a day and await her echocardiography. Luis Vinson DO Jan 09, 2017 16:18
--- NOTE | 2017-01-09 17:54 | DRSVH ---
[facility] [address] [place] [place] [address] Echocardiogram Report Name: SUZI CRUZ PStudy Date: 01/09/2017 Height: 66 in Hospital Exam Location: [facility] Weight: 192 lb Gender: Female BSA: 2.0 m2 : 1945 Age: 71 yrs BP: 189/88 m mHg Reason For Study: Hypertension Ordering Physician: Luis Vinson Performed By: Huy Wilcox Referring Physician: Wilfredo Vazquez Interpretation Summary The left ventricle is normal in size. There is moderate-severe concentric left ventricular hypertrophy. The ejection fraction is estimated to be 65- 70%. There are no focal wall motion abnormalities. The right ventricle is normal in size and function. The mitral valve leaflets are mildly calcified. There is mild to moderate mitral annular calcification. There is mild mitral regurgitation. The aortic valve is trileaflet. There is discrete nodular thickening of the non- coronary cusp. There is no hemodynamically significant valvular aortic stenosis. No aortic regurgitation is present. Remaining valvular structure and function are within normal limits. The ascending aorta is mildly enlarged. There is a trivial to small pericardial effusion noted. There are no echocardiographic or Doppler indications for cardiac tamponade. Compared to the previous study on 08/30/2006, the LV is thicker and the calcific changes on the mitral and aortic valves are more pronounced. Procedure: A two-dimensional transthoracic echocardiogram with color flow and Doppler was performed. The study quality was technically adequate. Comparison is made with the echocardiogram of 08/30/06. The patient was in normal sinus rhythm during the exam. Left Ventricle: The left ventricle is normal in size. There is moderate- severe concentric left ventricular hypertrophy. The ejection fraction is estimated to be 65-70%. There are no focal wall motion abnormalities. Right Ventricle: The right ventricle is normal in size and function. Atria: The left atrium is borderline dilated. The right atrium is normal in size. The interatrial septum is intact with no evidence for an atrial septal defect. Mitral Valve: The mitral valve leaflets are mildly calcified. There is mild to moderate mitral annular calcification. There is mild mitral regurgitation. Aortic Valve: The aortic valve is trileaflet. The aortic valve is mildly calcified. There is discrete nodular thickening of the non- coronary cusp. There is no hemodynamically significant valvular aortic stenosis. No aortic regurgitation is present. Tricuspid Valve: The tricuspid valve is normal. Pulmonary artery pressures cannot be estimated because of the lack of a measurable TR jet velocity. Pulmonic Valve: The pulmonic valve is not well seen, but is grossly normal. There is no pulmonic valvular regurgitation. Great Vessels: The aortic root is normal size. The ascending aorta is mildly enlarged. The pulmonary artery is normal size. The IVC is of normal diameter and collapses greater than 50% with a sniff. This suggests a low right atrial pressure of 3 mm Hg. Pericardium/ Pleura There is a trivial to small pericardial effusion noted. There are no echocardiographic or Doppler indications for cardiac tamponade. There is no pleural effusion. MMode/2D Measurements & Calculations LVIDd: 4.8 cm RA long axis LVOT diam LVIDs: 2.9 cm LA A2 area: 17.0 cm FS: 38.3 % LA A4 area: 20.3 cm RA area Ao root diam EPSS: 0.51 cm LA length (vol): 4.9 cm IVSd: 1.6 cm LA vol: 60.1 ml : 13.7 cm asc Aorta LVPWd: 1.6 cm LA vol index RA vol: 34.9 mlDiam: 3.4 cm RA : 17.8 mm2 IVC diam: 2.0 cm LV no. diameter/BSA LV sys. diameter/BSA (cm/m^2): 2.4 (cm/m^2): 1.5 Doppler Measurements & Calculations Ao V2 max MV E max sunil MV E/A: 0.88 MV V2 mean : 193.1 cm/sec : 99.4 cm/sec Med Peak E' Sunil : 95.3 cm/sec Ao max PG MV A max sunil MV mean PG : 14.9 mmHg : 113.3 cm/sec E/E' med: 24.2 Ao mean PG Lat Peak E' Sunil MV V2 VTI MVA(VTI): 2.3 cm2 LVOT Max Sunil E/E' lat: 28.6 MV dec time : 112.8 cm/sec E/e' average: 26.4 : 0.18 sec JESENIA(I,D): 2.1 cm sev ratio Ao V2 mean LV V1 max PG JESENIA indexed to BSA : 133.8 cm/sec (cm^2/m^2): 1.1 Ao V2 VTI: 39.3 cm LV V1 VTI: 21.9 cm JESENIA(V,D): 2.2 cm2 Reading Physician:05:53 PM
--- NOTE | 2017-01-09 19:28 | NUR ---
Pain/Activity/Constipation Patient a/o x 3, c/o headache this a.m. Tylenol given with good effect. Flexeril given prior to PT session. Patient able to dangle for approx 10 min and sat for 1 min with PT. Patient last BM 01/02, Senna given without effect. Noc RN aware and will offer repeat med this evening. See vitals SBP 150-210's, tele SR.
[2017-01-09] MEDS: Insulin GLARgine 100 Unit/mL Syringe SUBQ SCH (22:57)
[2017-01-10] VITALS (9 sets, daily range): BP systolic 113–225; BP diastolic 57–102; PULSE 74–80; RESP 16–20; O2SAT 95–98
--- NOTE | 2017-01-10 03:40 | NUR ---
pain/activity/skin C/o headache and given Tylenol - will monitor for effectiveness. Continues to have neck spasms intermittently, especially with turning, but has declined flexaril or other pain meds tonight. Assisting patient with turning for comfort. C/o pain to buttocks, and noted that right buttock was reddened. Mepilex placed on patient and she states it's much better.
[2017-01-10] MEDS: 0.9% Sodium Chloride 250 ML IV SCH (07:55)
[2017-01-10] MEDS: Insulin LISPRO 300 Unit/3 mL Inj SUBQ SCH ×4 (08:00→21:26)
[2017-01-10] MEDS ORDERED: Insulin GLARgine 100 Unit/mL Syringe SUBQ ONE (08:40)
--- NOTE | 2017-01-10 10:51 | PCM.PNMED ---
Subjective Date of Service Jan 10, 2017 Subjective She is doing well today. No neck pain. No arm or leg weakness or numbness. The plan is to take her scalp laceration rabia out at 10-14 days. This is per the preference of her retired physician . She denies any muscle cramping., No shortness of breath. No fevers or chills. No nausea or abdominal pain. She does still have a Lerma catheter in place with elected to do salt next 1-2 days as her mobility increases. She has been sitting a much more bad to continue to help improve her orthostatic symptoms. Nephrology has been titrating her medications to lower blood pressure and hopefully decrease her orthostasis. No overnight events Exam Vital Signs Vital Sign - Last Date Time Temp Pulse Resp B/P Pulse Ox O2 Delivery O2 Flow Rate FiO2 01/10/17 08:43 36.4 77 16 197/91 96 Room Air Intake and Output 01/09/17 01/09/17 01/10/17 Cumulative From/Thru 15:00 23:00 07:00 01/02/17 19:18 - 01/10/17 06:53 Intake Total 1108 ml 763 ml 02589 ml Output Total 800 ml 1100 ml 57636 ml Balance 308 ml -337 ml 5306 ml Intake Oral 750 ml 400 ml 7655 ml IV Total 358 ml 363 ml 74041 ml Packed Cells 370 ml Output Urine Total 800 ml 1100 ml 29317 ml # Bowel Movements 0 0 Exam Alert and oriented -3, no distress. Fluent speech. Cervical collar in place Anicteric sclera. Lungs are clear with normal rate and effort Heart is regular without murmur gallop or rub Abdomen soft nontender, flat Extremities are free of edema. Skin is free of rash or lesions. IVs and Medications Medications Reviewed: Medications were reviewed in detail Lab and Diagnostics Result Diagram: 01/06/17 0340 01/10/17 0420 Assessment & Plan Patient is a 71 year old female with history of atrial fibrillation, CKD, CAD s/ p stents, TIA, type 2 diabetes, and uncontrolled hypertension/diabetic autonomic dysreflexia who presents as a transfer from [facility] for a head laceration and C-spine fracture following a ground level fall. Chest pain, resolved. Continue current medical management, no further workup at this time. She did have mild troponin elevations. She appears to be currently stable on her medical regimen. Hypertensive urgency, POA and improving At this point are titrating up labetalol 200 mg 3 times a day. Add losartan. This is being handled by nephrology. Continue extremity wraps. Nephrology is most recently added chlorthalidone is going to add a small dose of spironolactone today and then up titrate labetalol. Cervical fracture, POA and active. Continue immobilization with cervical collar. - Per discussion with Jacey, pt to wear C-collar for 2 weeks, with follow up imaging and appointment with Dr. Miles in 2 weeks. No weakness or new numbness in any extremity. - Immobilization of neck with C-collar Patient's family requests a Yapp cervical collar we will see if we can obtain one of these today. orthostatic Hypotension/Autonomic Dysreflexia. POA and possibly active and slowly improving. -h/o falls and orthostatic Hypotension/Autonomic Dysreflexia. -unable to check orthostatic bp, -PT/ OT for deconditioned state - No change to the current management plan. Continue daily physical therapy. Uptitrated hypertension medications and see if her orthostasis continues to improve as a long side effect of amlodipine. Type 2 diabetes, uncontrolled, with neuropathy and nephropathy. POA and poorly controlled.. - Glucose was 212. Pt was on Lantus 12 U hs and 10 U AM, but is eating poorly -We will give her an additional 10 of Lantus now and increase her at bedtime from 12-17. We will continue her lispro without change. Acute kidney injury, POA and improving. Continues to improve, will follow laboratories. Continue normal saline at low rate. Chronic kidney disease Stage 4, POA - Reported baseline Cr 18, similar to today. - Continue to monitor CMP Try to avoid any contrast or other nephrotoxic agents. Urinary tract infection, POA and resolved. -We will stop ceftriaxone today.. Tachycardia, POA and resolved. - Pt has apparently not had issues with afib since the ablation, but she is tachycardic now. Likely secondary to pain. - Monitor on telemetry Coronary artery disease s/p stent to LAD. POA and active with chest pain as outlined above. - Continue aspirin - Hold Plavix for 1-2 days, restart if no signs of bleeding. Psoriatic arthritis, POA unstable - Stelara not available on formulary. Continue on discharge. Atrial fibrillation s/p ablation. Not active Atrial rupture - complication of ablation Remote TIA Chronic diarrhea Remote Kidney stones The patient is admitted under inpatient status with stay >2 midnights due to severity of illness. Discharge planning will be very complicated. We will continue to conversations regarding the most appropriate level of care for the patient leaves the hospital. The patient's has a primary goal of inpatient rehabilitation at [facility]. She remains a long way off from the skull as she is still having problems standing because of orthostatic symptoms. VTE Prophylaxis: SCDs VTE Mechanical Devices: Anti-Embolic stockings Resuscitation Status: CPR: Attempt Resuscitation Jose Wiggins MD Jan 10, 2017 10:51
--- NOTE | 2017-01-10 12:53 | PCM.PNNEPH ---
Subjective Date of Service Jan 10, 2017 Subjective Patient blood pressure is continuing to slowly improve. She is ambulating with assistance and has had minimal effects from orthostasis. Last 24 hour she has had 3103 in and 1700 out. She denies any headache or chest pain. This morning her sodium is 140, potassium 3.9, chloride 108, bicarbonate 21, hematocrit 35.83. Her echocardiogram she has significant concentric left ventricular hypertrophy with evidence of an increased ejection fraction between 65 and 75%. It was not noted she likely has a component of diastolic dysfunction. Exam Vital Signs Vital Sign - Last Date Time Temp Pulse Resp B/P Pulse Ox O2 Delivery O2 Flow Rate FiO2 01/10/17 12:12 36.5 74 20 180/76 97 Room Air Intake and Output 01/09/17 01/09/17 01/10/17 Cumulative From/Thru 15:00 23:00 07:00 01/02/17 19:18 - 01/10/17 06:53 Intake Total 1108 ml 763 ml 49728 ml Output Total 800 ml 1100 ml 58695 ml Balance 308 ml -337 ml 5306 ml Intake Oral 750 ml 400 ml 7655 ml IV Total 358 ml 363 ml 37479 ml Packed Cells 370 ml Output Urine Total 800 ml 1100 ml 87123 ml # Bowel Movements 0 0 Exam Neck is supple without adenopathy, thyromegaly, or jugular venous distention. Lungs are clear to auscultation. Heart is regular and rhythmical with a soft systolic murmur. Abdomen is soft without any tenderness rebound guarding masses or hepatosplenomegaly. Extremities not showing evidence of any clubbing , cyanosis or edema. Lab and Diagnostics Result Diagram: 01/06/17 0340 01/10/17 0420 Plan Impression Impression #1 hypertension with hypertensive heart disease and hypertensive nephrosclerosis with diastolic dysfunction number to diabetic nephropathy #3 anemia secondary to chronic kidney disease Recommendations #1 we are still waiting for her endocrine workup from last week to be returned from the laboratory. In the meantime I would like to start her on spironolactone 25 mg twice a day to add to her current medication regime. Luis Vinson DO Jan 10, 2017 12:52
[2017-01-10] MEDS ORDERED: Sodium Chloride NAS 45 mL Spray NASAL PRN (13:50)
--- NOTE | 2017-01-10 15:37 | NUR ---
NUTRITION FOLLOW-UP: ASSESS: Pt is a 71 YO female admitted with head laceration and C-spine fracture following a ground level fall. Per H&P pt has had poor PO intake for the last 2 weeks prior to admit. She is currently on a heart healthy consistent carbohydrate diet and her PO intake continues to improve. PO is 50-100%. She reported that her appetite is much improved and she is able to chew food better as time goes on. She reported that she sometimes has trouble chewing salads but liquids are fine. Pt has not had a BM since 01/02. Wt has overall been stable since admit. PMHX: T2DM, HTN, CKD stg 4, CAD, TIA LABS: Reviewed. 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 Insulin, Zofran, senna GI: 0 BM noted x 8 days SKIN: Dc 17 head laceration, bruising. WT: 86.9 kg, BMI 30.9 kg/m2. Admit weight: 87.5kg, BMI 31.1 kg/m2, IBW: 59.1 kg DIET: Heart healthy consistent carb. PO 50-100% EST. NEEDS: Kcals: 2185-2625kcal/day (25-30kcal/kg) Pro: 70-90g/day (1.2-1.5g/kg IBW) NUTRITION DIAGNOSIS: 1) Inadequate oral intake related to altered GI function as evidence by poor PO intake x 2 weeks and persistent nausea/vomiting - IMPROVING NUTRITION INTERVENTION: 1) Pt reported that she doesn't like Ensure CL or Gelatein but does like regular Ensure. Discussed changing Ensure to Glucerna for better carb control and pt reported that she was drinking Glucerna prior to hospitalization and would be happy to receive it here in the hospital. Pt also requested cottage cheese w/fruit on all trays to help increase protein intake. MONITOR / EVAL: PO, GI, labs, wt, POC, nutrition status. Will continue to monitor per moderate nutrition risk guidelines.
--- NOTE | 2017-01-10 18:40 | NUR ---
Activity/Spasms/Orthos Patient a/o x 4, denies pain this shift, but had neck spasms during physical therapy. Premedicated with Flexeril prior to PT. Patient continues to improve with dangling, orthostatic blood pressure dropped 40 mmhg (see vitals). Patient c/o dizziness with position changes during PT this afternoon, no evidence of syncope noted. Turned q 2-4 hrs, skin intact, mepilex inplace on buttock. Parisa diet fair. No BM. Lerma patent yellow uop.
[2017-01-10] MEDS: Insulin GLARgine 100 Unit/mL Syringe SUBQ SCH (21:24)
--- NOTE | 2017-01-10 23:55 | NUR ---
Transfer Patient transferred to room 3017, report given to Carmela Keys RN, all questions answered, no distress noted, all belongings sent with patient including cell phone and 3 pair of glasses.
[2017-01-11 03:28] VITALS: BP 216/88; PULSE 83; RESP 18; O2SAT 97
[2017-01-11] MEDS: 0.9% Sodium Chloride 250 ML IV SCH (07:55)
[2017-01-11] MEDS: Insulin LISPRO 300 Unit/3 mL Inj SUBQ SCH ×4 (08:39→22:06)
[2017-01-11] MEDS: Polyethylene Glycol (PEG) 17 Gm Powder PO PRN (08:49)
--- NOTE | 2017-01-11 10:45 | NUR ---
Social Work-multidisciplinary rounds: Per MD, pt is not medically stable anticipate 2-3 more days. PT recommending SNF. SW to follow up with pt and family. FARHAN Marques
--- NOTE | 2017-01-11 11:50 | PCM.PNNEPH ---
Subjective Date of Service Jan 11, 2017 Subjective Patient's blood pressure continues to fluctuate. She is not being ambulated as frequently as she probably should. She denies any headache, chest pain, or shortness of breath. Her intake and output for the last 24 hour sugars 1502 a.m. and 1850 out. Sodium this morning is 140, potassium 4.1, chloride 106, bicarbonate 22, BUN and creatinine were 39 and 1.88. Her thyroid functions were normal. Exam Vital Signs Vital Sign - Last Date Time Temp Pulse Resp B/P Pulse Ox O2 Delivery O2 Flow Rate FiO2 01/11/17 03:28 37.0 83 18 216/88 97 Room Air Intake and Output 01/10/17 01/10/17 01/11/17 Cumulative From/Thru 15:00 23:00 07:00 01/02/17 19:18 - 01/11/17 05:54 Intake Total 759 ml 700 ml 82244 ml Output Total 750 ml 2350 ml 68454 ml Balance 9 ml -1650 ml 3665 ml Intake Oral 400 ml 700 ml 8755 ml IV Total 359 ml 88523 ml Packed Cells 370 ml Output Urine Total 750 ml 2350 ml 27453 ml # Bowel Movements 0 0 Exam Neck supple without adenopathy, thyromegaly, or jugular venous distention. Lungs are clear to auscultation. Heart is regular with a soft systolic murmur. Abdomen soft with tenderness and rebound guarding masses or hepatosplenomegaly. Extremities not 20 evidence of any clubbing, cyanosis, or edema. Skin turgor is slightly diminished. Lab and Diagnostics Result Diagram: 01/06/17 0340 01/11/17 0600 Plan Impression Impression #1 hypertension with hypertensive heart disease and hypertensive nephrosclerosis number to diabetic nephropathy #3 mild dehydration number for a multifactorial anemia Recommendations #1 I discussed this with the patient's nurse and would strongly urge sitting up on the side of the bed several times a day for her body to addressed with addition change. I would also like to normalize her fluid intake and increase her labetalol to 400 mg 3 times a day. Luis Vinson DO Jan 11, 2017 11:50
[2017-01-11 13:22] VITALS: BP 188/83; PULSE 77; RESP 18; O2SAT 93
--- NOTE | 2017-01-11 15:24 | NUR ---
Social Work-continued d/c planning: Data & assessment:EMR reviewed. Pt is on day 9 of hospitalization for diarrhea per H&P. Pt is not medically stable anticipate several more days. PT has seen pt and continues to recommend SNF placement. continues to state that he only wants pt to be able to go to inpt rehab. At this time, pt is not able to tolerate 3 hours of therapy a day and does not meet criteria. As pt continues to work with therapies this may change. SW has not received any order for MD for any services at this time. SW will continue to follow. Plan:SW will continue to follow and await MD order for services. continues to state that he only wants pt to be able to go to inpt rehab, but PT recommending SNF.SW will continue to follow. FARHAN Marques
--- NOTE | 2017-01-11 17:04 | PCM.PNMED ---
Subjective Date of Service Jan 11, 2017 Subjective Denies any new issues/complaints except constipation since admission Exam Vital Signs Vital Sign - Last Date Time Temp Pulse Resp B/P Pulse Ox O2 Delivery O2 Flow Rate FiO2 01/11/17 13:22 36.7 77 18 188/83 93 Room Air Intake and Output 01/10/17 01/10/17 01/11/17 Cumulative From/Thru 15:00 23:00 07:00 01/02/17 19:18 - 01/11/17 05:54 Intake Total 759 ml 700 ml 81377 ml Output Total 750 ml 2350 ml 31530 ml Balance 9 ml -1650 ml 3665 ml Intake Oral 400 ml 700 ml 8755 ml IV Total 359 ml 82861 ml Packed Cells 370 ml Output Urine Total 750 ml 2350 ml 46995 ml # Bowel Movements 0 0 General: Alert, Oriented X3, Cooperative, No Acute Distress Head: Normal Eyes: PERRLA, EOMI, Scleral Anicteric Nose: Mucous Membr Moist/[place] Mouth: Mucous Membr Moist/[place] Neck: Other (in brace and limited ROM due to pain) Chest & Lungs: Chest Wall Normal, Clear to auscultation & percussion Cardiovascular: Regular Rate/Rhythm Pulses: Other (NL radial, femoral) Abdomen: Non-tender, Non-distended, Normoactive bowel tones, Soft Extremities: No cyanosis/clubbing/edma bilat Neurological: Grossly Neurologically Intact, Cranial Nerves 2-12 Intact, Normal Speech IVs and Medications Medications Reviewed: Medications were reviewed in detail Lab and Diagnostics Result Diagram: 01/06/17 0340 01/11/17 0600 Assessment & Plan 71 year old female with history of atrial fibrillation, CKD, CAD s/p stents, TIA , type 2 diabetes, and uncontrolled hypertension/diabetic autonomic dysreflexia who presents as a transfer from [facility] for a head laceration and C-spine fracture following a ground level fall. # Acute hypertensive urgency, present on admission. - Ongoing and BP poorly controlled - Appreciate nephrology consult. Will followup with recs - Continue with current BP meds and increase Labetalol to 400 mg 3 times a day # Acute cervical fracture as result of syncope and ground level fall, present on admission. - Continue immobilization with cervical collar. - Per earlier notes by Dr. Wiggins: "discussion with Jacey pt to wear C- collar for 2 weeks, with follow up imaging and appointment with Dr. Miles in 2 weeks." - Continue with supportive care # Orthostatic Hypotension/Autonomic Dysreflexia. present on admission. - Ongoing - Continue with PT and improving deconditioned state # Type 2 diabetes, uncontrolled, with neuropathy and nephropathy. present on admission. - HgA1C 7.6 - Continue with current coverage # Acute kidney injury on top of Chronic kidney disease Stage 4, present on admission - Improved - Avoid nephrotoxic agents. - Appreciate nephrology consult. Will followup with recs # Suspected urinary tract infection on admission ruled out with negative urine culture. - Post treatment with Ceftriaxone that was stopped on 01/09/17 # History of A-fib post ablation. Stable - Followup # History of coronary artery disease s/p stent to LAD. Reported chest pain as outlined - Mildly elevated Trop in setting of SHAHIDA and severe hypertension on presentation - Echo without significant wall motion abnormality - No further CP reported during this hospital - Continue with Aspirin and Plavix # History of psoriatic arthritis, presumed stable. - Stelara not available on formulary. Continue on discharge. Dispo: 2-4 days VTE Prophylaxis: SCDs VTE Mechanical Devices: Anti-Embolic stockings Resuscitation Status: CPR: Attempt Resuscitation Derrick Narvaez Jan 11, 2017 17:03 Atrial rupture - complication of ablation Remote TIA Chronic diarrhea Remote Kidney stones The patient is admitted under inpatient status with stay >2 midnights due to severity of illness. Discharge planning will be very complicated. We will continue to conversations regarding the most appropriate level of care for the patient leaves the hospital. The patient's has a primary goal of inpatient rehabilitation at [facility]. She remains a long way off from the skull as she is still having problems standing because of orthostatic symptoms. VTE Prophylaxis: SCDs VTE Mechanical Devices: Anti-Embolic stockings Resuscitation Status: CPR: Attempt Resuscitation Derrick Narvaez Jan 11, 2017 17:03
[2017-01-11 19:40] VITALS: BP 171/86; PULSE 76; RESP 18; O2SAT 96
[2017-01-11] MEDS: Insulin GLARgine 100 Unit/mL Syringe SUBQ SCH (22:05)
[2017-01-12] VITALS (13 sets, daily range): BP systolic 114–210; BP diastolic 57–102; PULSE 73–89; RESP 18–20; O2SAT 94–98
--- NOTE | 2017-01-12 03:06 | NUR ---
Urination Per day RN, Lerma catheter removed at 1845. Patient voided 50 ml at about 2200, then 800 ml about an hour later. Patient has been assisted with a bed goode. Call light within reach, intentional rounding in place. Addendum: 01/12/17 at 0514 by SONIA GONZALEZ RN Patient had three unsuccessful attempts to urinate after 2300. Bladder scan at 0430 showed greater than 999 ml urine retained. MD garcia, new order for straight catheter. Updated patient on plan, placed catheter at 0500, still draining, will remove when done. Patient reports increased comfort. Addendum: 01/12/17 at 0546 by SONIA GONZALEZ RN Went in to assess patient and urine amount at 0530. 1150 ml urine output in catheter bag. Woke patient up to let her know it is time to remove catheter. Patient requested to have catheter left in until morning. Catheter remains in place, will pass on to day RN to assess and discuss with MD.
[2017-01-12 06:25] LABS: BASOPHILS % (AUTO) 0.1 % (0-3); EOSINOPHILS % (AUTO) 1.2 % (0-5); MONOCYTES % (AUTO) 15.2 % (4-12); Mean Corpuscular Hemoglobin 29.9 pg (27.0-35.0); Mean Corpuscular Volume 93.3 fL (81-100); NEUTROPHILS % (AUTO) 63.9 % (40-74); Platelet Count 312 bil/L (150-400)
[2017-01-12 07:00] LABS: Magnesium 1.9 mg/dL (1.6-2.6)
[2017-01-12 07:55] LABS: TROPONIN T 0.095 ug/L (0.0-0.011)
[2017-01-12] MEDS: 0.9% Sodium Chloride 250 ML IV SCH (07:55)
[2017-01-12] MEDS: Insulin LISPRO 300 Unit/3 mL Inj SUBQ SCH ×4 (08:00→21:57)
[2017-01-12] MEDS: Polyethylene Glycol (PEG) 17 Gm Powder PO PRN (08:15)
[2017-01-12] MEDS ORDERED: Lactulose 20 Gm/30 mL 30 mL Syrup PO ONE (10:05)
--- NOTE | 2017-01-12 13:44 | NUR ---
Transfer to [facility] [place]-102/Constipation/Activity Pt transported to 1026 @ 1345. Patient encouraged by RN to sit up in chair, agreeable, 2pa transfer w/ fww, tolerated "fair" c/o some dizziness. Ortho set taken at 1250 sitting 133/70, stand 114/57, vitals recorded. Patient tolerated sitting up in chair for 45 minutes or >, c/o dizziness on occasion. Bowel movement in later a.m., digital removal required, patient wanted to stop process despite RN telling her that stool was still present in rectum. Lactulose admin prior to transfer. Report given to Hector Arteaga RN. All belongings gathered & hand carried by family, medications from drawer placed in chart, chart hand carried by DOOR BUILDER, patient transported via wheelchair. Mentation at baseline prior to transfer. Addendum: 01/12/17 at 1831 by TEREZA ARTEAGA RN Report received from Duyen Harris RN prior to pt arrival via w/c. All personal belongings brought down, IV SL and patent, C-collar in place, Pt transferred to bed without issue with assist and immediately stated the need for bedpan. Pt oriented to room. Call light in reach. Meds and chart brought down with pt.
--- NOTE | 2017-01-12 15:06 | PCM.PNNEPH ---
Subjective Date of Service Jan 12, 2017 Subjective Patient's blood pressure continues to improve slowly. Unfortunately she is so deconditioned that any time she is up she can only tolerate this for short periods of time before she has to shift in her vasculature and her blood pressure drops. I have spoken at length with the nurse about getting her up for short periods 3-4 times a day. Last 24 hours she has had 1800 in and 3300 out, hemoglobin is 8.9, sodium is 141, potassium 4.1, chloride 105, bicarbonate 22, BUN and creatinine were 38 and 1.96 respectively. Once again R biochemical tests are not back yet however her sternum protein electrophoresis does not show any significant monoclonal gammopathy. Exam Vital Signs Vital Sign - Last Date Time Temp Pulse Resp B/P Pulse Ox O2 Delivery O2 Flow Rate FiO2 01/12/17 14:02 36.5 73 20 165/82 97 Room Air Intake and Output 01/11/17 01/11/17 01/12/17 Cumulative From/Thru 15:00 23:00 07:00 01/02/17 19:18 - 01/12/17 06:19 Intake Total 1100 ml 400 ml 20311 ml Output Total 950 ml 1950 ml 01772 ml Balance 150 ml -1550 ml 2265 ml Intake Oral 1100 ml 400 ml 46585 ml IV Total 34517 ml Packed Cells 370 ml Output Urine Total 950 ml 1950 ml 67179 ml # Bowel Movements 0 0 Exam Lungs are clear to auscultation. Heart is regular and rhythmical with a soft systolic murmur. Abdomen is soft without any tenderness rebound guarding masses or hepatosplenomegaly. Extremities do not show any evidence of any clubbing cyanosis or edema. Skin turgor is slightly diminished but otherwise is good. Lab and Diagnostics Result Diagram: 01/12/17 0551 01/12/17 0551 Plan Impression Impression #1 hypertension with hypertensive heart disease and hypertensive nephrosclerosis number to orthostasis which is resolving #3 diabetic nephropathy #4 diastolic dysfunction. Recommendations #1 I feel the chlorthalidone is adequate and in light of her diastolic parameters I feel that extra diuresis is certainly not indicated. I would like to hold any further increases in her blood pressure machine for at least a day or so until we can get her activity level. Luis Vinson DO Jan 12, 2017 15:06
--- NOTE | 2017-01-12 15:42 | PCM.PNMED ---
Subjective Date of Service Jan 12, 2017 Subjective Denies any new issues/complaints except constipation which finally seems to be resolving Exam Vital Signs Vital Sign - Last Date Time Temp Pulse Resp B/P Pulse Ox O2 Delivery O2 Flow Rate FiO2 01/12/17 14:02 36.5 73 20 165/82 97 Room Air Intake and Output 01/11/17 01/11/17 01/12/17 Cumulative From/Thru 15:00 23:00 07:00 01/02/17 19:18 - 01/12/17 06:19 Intake Total 1100 ml 400 ml 17704 ml Output Total 950 ml 1950 ml 64508 ml Balance 150 ml -1550 ml 2265 ml Intake Oral 1100 ml 400 ml 85254 ml IV Total 81165 ml Packed Cells 370 ml Output Urine Total 950 ml 1950 ml 81199 ml # Bowel Movements 0 0 Exam General: Alert, Oriented X3, Cooperative, No Acute Distress Head: Normal Eyes: PERRLA, EOMI, Scleral Anicteric Nose: Mucous Membr Moist/[place] Mouth: Mucous Membr Moist/[place] Neck: Other (in brace and limited ROM due to pain) Chest & Lungs: Chest Wall Normal, Clear to auscultation bilat Cardiovascular: Regular Rate/Rhythm Pulses: Other (NL radial, femoral) Abdomen: Non-tender, Non-distended, Normoactive bowel tones, Soft Extremities: No cyanosis/clubbing/edema bilat Neurological: Grossly Neurologically Intact, Cranial Nerves 2-12 Intact, Normal Speech IVs and Medications Medications Reviewed: Medications were reviewed in detail Lab and Diagnostics Result Diagram: 01/12/17 0551 01/12/17 0551 Assessment & Plan 71 year old female with history of atrial fibrillation, CKD, CAD s/p stents, TIA , type 2 diabetes, and uncontrolled hypertension/diabetic autonomic dysreflexia who presents as a transfer from [facility] for a head laceration and C-spine fracture following a ground level fall. # Acute hypertensive urgency, present on admission. - Ongoing and BP poorly controlled - Appreciate nephrology consult. Will followup with recs - Continue with current BP meds (Labetalol increased to 400 mg 3 times a day on 01/11). - Further titration of BP meds per nephrology # Acute cervical fracture as result of syncope and ground level fall, present on admission. - Continue immobilization with cervical collar. - Per earlier notes by Dr. Wiggins: "discussion with Jacey, pt to wear C- collar for 2 weeks, with follow up imaging and appointment with Dr. Miles in 2 weeks." - Continue with supportive care # Orthostatic Hypotension/Autonomic Dysreflexia. present on admission. - Ongoing - Continue with PT and improving deconditioned state # Type 2 diabetes, uncontrolled, with neuropathy and nephropathy. present on admission. - HgA1C 7.6 - Continue with current coverage # Acute kidney injury on top of Chronic kidney disease Stage 4, present on admission - Improved - Avoid nephrotoxic agents. - Appreciate nephrology consult. Will followup with recs # Suspected urinary tract infection on admission ruled out with negative urine culture. - Post treatment with Ceftriaxone that was stopped on 01/09/17 # History of A-fib post ablation. Stable - Followup # History of coronary artery disease s/p stent to LAD. - Elevated Trop in setting of SHAHIDA and severe hypertension on presentation - Echo without significant wall motion abnormality - No further CP reported during this hospital - Continue with Aspirin and Plavix # History of psoriatic arthritis, presumed stable. - Stelara not available on formulary. Continue on discharge. Dispo: 3-4 days with her who is a retired trauma surgeon demanding for patient to be discharged to inpatient rehab. Her also wishes to manage her head laceration and will decide on when to remove the rabia. VTE Prophylaxis: SCDs VTE Mechanical Devices: Intermittant Pneumatic CD Resuscitation Status: CPR: Attempt Resuscitation Derrick Narvaez Jan 12, 2017 15:42
[2017-01-12 16:10] LABS: Aldosterone/Renin Ratio 4.3 (0.0-30.0)
--- NOTE | 2017-01-12 18:31 | NUR ---
Hypertension Pt received afternoon Labetalol dose of 300mg. Post administration, ~45minutes, BP elevated. Additional time left for Labetolol dose to take effect. At 1755, BP to 202/102. Pt asymptomatic. Phone page by independent trader Ericka BABIN no response. Cook text page at 1820. Continue to monitor.
[2017-01-12] MEDS ORDERED: Labetalol 5 mg/mL 20 mL Inj IV ONE (18:59)
[2017-01-12] MEDS: Insulin GLARgine 100 Unit/mL Syringe SUBQ SCH (21:57)
--- NOTE | 2017-01-12 22:00 | NUR ---
Dr. Karel Babin paged about BP meds Two orders for spirolocatone present on eMAR. Karel BABIN called to confirm which dose of spirolocatone should be given. Karel BABIN confirmed 50 mg of spirolocatone should be given. Will continue to monitor.
[2017-01-13 00:32] VITALS: BP 195/86; PULSE 79
[2017-01-13 01:05] VITALS: BP 192/84
[2017-01-13 05:31] VITALS: BP 190/97; PULSE 77; RESP 16; O2SAT 96
--- NOTE | 2017-01-13 05:34 | NUR ---
Education about Pettit Upon assessment, pt. had pettit [address] patent and draining. Pt. stated "my wants to keep it, and let's keep it in overnight". Upon coming in around 0530, education was given that pettit had been in for 24 hours at this point, and should be taken out to decrease infection. Pt. was able to ambulate to BSC for extra large BM. Pt. refused for it to be taken at this time stating "I want to talk to Dr. Vinson to see if it needs to be kept in".
[2017-01-13] MEDS: 0.9% Sodium Chloride 250 ML IV SCH (07:41)
[2017-01-13] MEDS: Insulin LISPRO 300 Unit/3 mL Inj SUBQ SCH ×4 (08:00→22:23)
--- NOTE | 2017-01-13 13:04 | PCM.PNNEPH ---
Subjective Date of Service Jan 13, 2017 Subjective The patient is continuing to show some slow improvement. She was up several times yesterday which she has been increasingly tolerating. She denies any headache chest pain or shortness of breath. Last 24-hour she has had 1356 and 2556 out. Her sodium is 142, potassium 4.1, chloride 107, bicarbonate 24, creatinine is 2.13. S1 and activity family has been returned and shows an elderly plus [place] ratio of 4.3 which effectively excludes hyperaldosteronism. Exam Vital Signs Vital Sign - Last Date Time Temp Pulse Resp B/P Pulse Ox O2 Delivery O2 Flow Rate FiO2 01/13/17 05:31 36.8 77 16 190/97 96 Room Air Intake and Output 01/12/17 01/12/17 01/13/17 Cumulative From/Thru 15:00 23:00 07:00 01/02/17 19:18 - 01/13/17 03:59 Intake Total 956 ml 43701 ml Output Total 600 ml 02640 ml Balance 356 ml 2621 ml Intake Oral 956 ml 27988 ml IV Total 14236 ml Packed Cells 370 ml Output Urine Total 600 ml 51164 ml # Bowel Movements 0 Exam HEENT examination was remarkable for pale sclera. Neck is supple without adenopathy, thyromegaly, or jugular venous distention. Lungs were clear to auscultation. Heart was regular and rhythmical with a soft systolic murmur, S4 was noted.. Abdomen is soft without any tenderness, rebound, guarding, masses, or hepatosplenomegaly. Extremities do not show any evidence of any clubbing, cyanosis, or edema. Skin turgor is good. Lab and Diagnostics Result Diagram: 01/12/17 0551 01/13/17 0605 Plan Impression Impression #1 acute kidney injury secondary to stabilizing of her blood pressure #2 hypertension with hypertensive heart disease and hypertensive nephrosclerosis #3 diabetic nephropathy number for obstructive sleep apnea Recommendations #1 I would like to continue her on her current medical therapy and monitor her blood pressure and increase her activity. Luis Vinson DO Jan 13, 2017 13:04
[2017-01-13 13:41] VITALS: BP 135/65; PULSE 79; RESP 16; O2SAT 97
--- NOTE | 2017-01-13 15:43 | PCM.PNMED ---
Subjective Date of Service Jan 13, 2017 Subjective Denies any new issues/complaints except constipation which finally seems to be resolving Exam Vital Signs Vital Sign - Last Date Time Temp Pulse Resp B/P Pulse Ox O2 Delivery O2 Flow Rate FiO2 01/13/17 13:41 36.6 79 16 135/65 97 Room Air Intake and Output 01/12/17 01/12/17 01/13/17 Cumulative From/Thru 15:00 23:00 07:00 01/02/17 19:18 - 01/13/17 03:59 Intake Total 956 ml 30992 ml Output Total 600 ml 39185 ml Balance 356 ml 2621 ml Intake Oral 956 ml 94219 ml IV Total 86660 ml Packed Cells 370 ml Output Urine Total 600 ml 49896 ml # Bowel Movements 0 Exam General: Alert, Oriented X3, Cooperative, No Acute Distress Head: Normal Eyes: PERRLA, EOMI, Scleral Anicteric Nose: Mucous Membr Moist/[place] Mouth: Mucous Membr Moist/[place] Neck: Other (in brace and limited ROM due to pain) Chest & Lungs: Chest Wall Normal, Clear to auscultation bilat Cardiovascular: Regular Rate/Rhythm Pulses: Other (NL radial, femoral) Abdomen: Non-tender, Non-distended, Normoactive bowel tones, Soft Extremities: No cyanosis/clubbing/edema bilat Neurological: Grossly Neurologically Intact, Cranial Nerves 2-12 Intact, Normal Speech IVs and Medications Medications Reviewed: Medications were reviewed in detail Lab and Diagnostics Result Diagram: 01/12/17 0551 01/13/17 0605 Assessment & Plan 71 year old female with history of atrial fibrillation, CKD, CAD s/p stents, TIA , type 2 diabetes, and uncontrolled hypertension/diabetic autonomic dysreflexia who presents as a transfer from [facility] for a head laceration and C-spine fracture following a ground level fall. # Acute hypertensive urgency, present on admission. - Ongoing and BP poorly controlled - Appreciate nephrology consult. Will followup with recs - Continue with current BP meds (Labetalol increased to 400 mg 3 times a day on 01/11). - Further titration of BP meds per nephrology # Acute cervical fracture as result of syncope and ground level fall, present on admission. - Continue immobilization with cervical collar. - Per earlier notes by Dr. Wiggins: "discussion with Jacey pt to wear C- collar for 2 weeks, with follow up imaging and appointment with Dr. Miles in 2 weeks." - Continue with supportive care # Orthostatic Hypotension/Autonomic Dysreflexia. present on admission. - Ongoing - Continue with PT and improving deconditioned state # Type 2 diabetes, uncontrolled, with neuropathy and nephropathy. present on admission. - HgA1C 7.6 - Continue with current coverage # Acute kidney injury on top of Chronic kidney disease Stage 4, present on admission - Improved - Avoid nephrotoxic agents. - Appreciate nephrology consult. Will followup with recs # Suspected urinary tract infection on admission ruled out with negative urine culture. - Post treatment with Ceftriaxone that was stopped on 01/09/17 # History of A-fib post ablation. Stable - Followup # History of coronary artery disease s/p stent to LAD. - Elevated Trop in setting of SHAHIDA and severe hypertension on presentation - Echo without significant wall motion abnormality - No further CP reported during this hospital - Continue with Aspirin and Plavix # History of psoriatic arthritis, presumed stable. - Stelara not available on formulary. Continue on discharge. Dispo: 3-4 days with her who is a retired trauma surgeon demanding for patient to be discharged to inpatient rehab. Her also wishes to manage her head laceration and will decide on when to remove the rabia. VTE Prophylaxis: SCDs VTE Mechanical Devices: Intermittant Pneumatic CD Resuscitation Status: CPR: Attempt Resuscitation Derrick Narvaez Jan 13, 2017 15:43
--- NOTE | 2017-01-13 15:49 | NUR ---
NUTRITION FOLLOW-UP: ASSESS: Pt is a 71 YO female admitted with head laceration and C-spine fracture following a ground level fall. Per H&P pt has had poor PO intake for the last 2 weeks prior to admit. She is currently on a heart healthy consistent carbohydrate diet and her PO intake continues to improve. PO is 50-100%. She reported that her appetite is much improved and she is able to chew food better as time goes on. She reported that she sometimes has trouble chewing salads but liquids are fine. Pt with +BM 01/12 with digital removal, initiation of lactulose. Acute kidney injury improved, renal following to adjust medications for better blood pressure control. PMHX: T2DM, HTN, CKD stg 4, CAD, TIA LABS: Reviewed. Alb 2.0 MEDS: Reviewed. Insulin, Zofran, senna GI: 1 BM per RN 01/12 SKIN: Dc 17 head laceration, bruising. WT: 85.4 kg, BMI 30.4 kg/m2. Admit weight: 87.5kg, BMI 31.1 kg/m2, IBW: 59.1 kg DIET: Heart healthy consistent carb. PO 75% EST. NEEDS: Kcals: 2185-2625kcal/day (25-30kcal/kg) Pro: 70-90g/day (1.2-1.5g/kg IBW) NUTRITION DIAGNOSIS: 1) Inadequate oral intake related to altered GI function as evidence by poor PO intake x 2 weeks and persistent nausea/vomiting - IMPROVED. NUTRITION INTERVENTION: 1) Pt receiving cottage cheese with fruit and glucerna as supplement. PO continues to be adequate. MONITOR / EVAL: PO, GI, labs, wt, POC, nutrition status. Will continue to monitor per moderate nutrition risk guidelines.
--- NOTE | 2017-01-13 16:05 | NUR ---
Lerma Lerma dc'd at 0930; pt incont of B&B at ~1030; brief in place and then up to chair for lunch. Back to bed at ~1330; changed; no urine output. Bladder scan revealed 342cc per INDEXER. Pt denying discomfort or bladder pressure. present and aware of number as well. Will continue to monitor. Pt instructed to call if any bladder discomfort or if there is need for void. Transfer of care to Tristian Urbano RN who was made aware of the above. Care continues
--- NOTE | 2017-01-13 18:29 | NUR ---
Report received concerning patient urinary status. Patient declines discomfort or urge to void, refuses bladder scan at this time. Patient states "I feel like I might have to go in an hour". Care is ongoing.
[2017-01-13 21:00] VITALS: BP 186/102; PULSE 98; RESP 18; O2SAT 97
[2017-01-13] MEDS: Insulin GLARgine 100 Unit/mL Syringe SUBQ SCH (22:23)
[2017-01-13] MEDS: Ondansetron 2 mg/mL 2 mL Inj IVPUSH PRN (22:42)
[2017-01-14 01:39] VITALS: BP 186/94; PULSE 94
[2017-01-14 06:45] VITALS: BP 184/93; PULSE 89; RESP 16; O2SAT 98
--- NOTE | 2017-01-14 07:21 | NUR ---
Bladder scan & BP/ Md paged Lizzy BABIN was paged around 0100, as pt's bladder scan amount was over 800 ml. Lizzy BABIN ordered a one time straight cath, which was performed and successful. Pt. had 1100 ml of urine come out. Pt. has not been able to void after that despite mutiple tries. However, at this time pt. is asleep, and claims no discomfort during latest rounding. Lizzy BABIN was also paged around 0100, as pt's BP was still high. No new orders for BP at this time.
[2017-01-14] MEDS: 0.9% Sodium Chloride 250 ML IV SCH (07:55)
[2017-01-14] MEDS: Insulin LISPRO 300 Unit/3 mL Inj SUBQ SCH ×4 (08:00→22:00)
[2017-01-14 10:21] LABS: BASOPHILS % (AUTO) 0.3 % (0-3); EOSINOPHILS % (AUTO) 1.6 % (0-5); MONOCYTES % (AUTO) 14.6 % (4-12); Mean Corpuscular Hemoglobin 29.8 pg (27.0-35.0); Mean Corpuscular Volume 93.5 fL (81-100); NEUTROPHILS % (AUTO) 65.7 % (40-74); Platelet Count 338 bil/L (150-400)
[2017-01-14 11:33] LABS: Phosphorus 3.7 mg/dL (2.5-4.9)
--- NOTE | 2017-01-14 12:07 | PCM.PNNEPH ---
Subjective Date of Service Jan 14, 2017 Subjective Patient's blood pressure continues to improve. Once again she is continuing to tolerate positional change better. The major issue today seems to be her urinary retention. Exam Vital Signs Vital Sign - Last Date Time Temp Pulse Resp B/P Pulse Ox O2 Delivery O2 Flow Rate FiO2 01/14/17 06:45 36.8 89 16 184/93 98 Room Air Intake and Output 01/13/17 01/13/17 01/14/17 Cumulative From/Thru 15:00 23:00 07:00 01/02/17 19:18 - 01/14/17 06:47 Intake Total 1540 ml 100 ml 41415 ml Output Total 1100 ml 71055 ml Balance 1540 ml -1000 ml 3161 ml Intake Oral 1540 ml 100 ml 31507 ml IV Total 59838 ml Packed Cells 370 ml Output Urine Total 1100 ml 44606 ml # Voids 1 1 # Bowel Movements 1 2 3 Exam HEENT examination was remarkable for pale sclera. Neck is supple without adenopathy, thyromegaly, or jugular venous distention. Lungs were clear to auscultation. Heart was regular and rhythmical with a soft systolic murmur. Abdomen soft without any tenderness rebound guarding masses or hepatosplenomegaly. Patient [place] evidence of any clubbing cyanosis or edema. Skin turgor is good. Lab and Diagnostics Result Diagram: 01/14/17 1000 01/14/17 1000 Plan Impression Impression #1 hypertension with hypertensive heart disease and hypertensive nephrosclerosis #2 diabetic nephropathy #3 diastolic dysfunction #4 Urinary retention Recommendations #[address] Lerma catheter and have instructed the nurse to do bladder training with her. Hopefully we can get her bladder back to normal function the next day or 2. I feel that she is completely able to be rehabilitated back to the level she was at several weeks ago. Luis Vinson DO Jan 14, 2017 12:07
--- NOTE | 2017-01-14 13:00 | PCM.PNMED ---
Subjective Date of Service Jan 14, 2017 Subjective Neck pain controlled. No neurological complaint. Blood pressure is elevated today. She also has urinary retention requiring in and out catheter. Creatinine trending up. Troponin also elevated. Unknown significance. Exam Vital Signs Vital Sign - Last Date Time Temp Pulse Resp B/P Pulse Ox O2 Delivery O2 Flow Rate FiO2 01/14/17 06:45 36.8 89 16 184/93 98 Room Air Intake and Output 01/13/17 01/13/17 01/14/17 Cumulative From/Thru 15:00 23:00 07:00 01/02/17 19:18 - 01/14/17 06:47 Intake Total 1540 ml 100 ml 84918 ml Output Total 1100 ml 27110 ml Balance 1540 ml -1000 ml 3161 ml Intake Oral 1540 ml 100 ml 84703 ml IV Total 14287 ml Packed Cells 370 ml Output Urine Total 1100 ml 64464 ml # Voids 1 1 # Bowel Movements 1 2 3 Exam General: Alert, Oriented X3, Cooperative, No Acute Distress Head: Normal Eyes: PERRLA, EOMI, Scleral Anicteric Nose: Mucous Membr Moist/[place] Mouth: Mucous Membr Moist/[place] Neck: Other (in brace and limited ROM due to pain) Chest & Lungs: Chest Wall Normal, Clear to auscultation bilat Cardiovascular: Regular Rate/Rhythm Pulses: Other (NL radial, femoral) Abdomen: Non-tender, Non-distended, Normoactive bowel tones, Soft Extremities: No cyanosis/clubbing/edema bilat Neurological: Grossly Neurologically Intact, Cranial Nerves 2-12 Intact, Normal Speech IVs and Medications Medications Reviewed: Medications were reviewed in detail Lab and Diagnostics Result Diagram: 01/14/17 1000 01/14/17 1000 Assessment & Plan 71 year old female with history of atrial fibrillation, CKD, CAD s/p stents, TIA , type 2 diabetes, and uncontrolled hypertension/diabetic autonomic dysreflexia who presents as a transfer from [facility] for a head laceration and C-spine fracture following a ground level fall. # Acute hypertensive urgency, present on admission. - Ongoing and BP poorly controlled - Appreciate nephrology consult. Will followup with recs - Continue with current BP meds (Labetalol increased to 400 mg 3 times a day on 01/11). -Current antihypertensive regimen: Chlorthalidone 25 mg by mouth daily, losartan 100 mg daily, labetalol 300 mg by mouth 3 times a day, spironolactone 50 mg po bid - Further titration of BP meds per nephrology # Acute cervical fracture as result of syncope and ground level fall, present on admission. - Continue immobilization with cervical collar. - Per earlier notes by Dr. Wiggins: "discussion with Jacey, pt to wear C- collar for 2 weeks, with follow up imaging and appointment with Dr. Miles in 2 weeks." - Continue with supportive care # Orthostatic Hypotension/Autonomic Dysreflexia. present on admission. - Ongoing - Continue with PT and improving deconditioned state -Compression stocking when ambulating #Urinary retention requiring in and out catheter Lerma inserted per nephrology for bladder training # Type 2 diabetes, uncontrolled, with neuropathy and nephropathy. present on admission. - HgA1C 7.6 - Continue with current coverage # Acute kidney injury on top of Chronic kidney disease Stage 4, present on admission - Improved - Avoid nephrotoxic agents. - Appreciate nephrology consult. Will followup with recs # Suspected urinary tract infection on admission ruled out with negative urine culture. - Post treatment with Ceftriaxone that was stopped on 01/09/17 # History of A-fib post ablation. Stable - Followup # History of coronary artery disease s/p stent to LAD. - Elevated Trop in setting of SHAHIDA and severe hypertension on presentation - Echo without significant wall motion abnormality - No further CP reported during this hospital - Continue with Aspirin and Plavix # History of psoriatic arthritis, presumed stable. - Stelara not available on formulary. Continue on discharge. Dispo: 3-4 days with her who is a retired trauma surgeon demanding for patient to be discharged to inpatient rehab. Her also wishes to manage her head laceration and will decide on when to remove the rabia. VTE Prophylaxis: SCDs VTE Mechanical Devices: Anti-Embolic stockings Resuscitation Status: CPR: Attempt Resuscitation Sebastian Abraham MD Jan 14, 2017 13:00
[2017-01-14 15:14] VITALS: BP 184/91; PULSE 84; RESP 17; O2SAT 98
--- NOTE | 2017-01-14 15:48 | NUR ---
Social Work: Continued Discharge Planning/Multi-Disciplinary Rounds D: EMR reviewed. Pt is on day 12 of hospitalization. Pt is not medically stable for discharge. Per RN in rounds, RN attempted to get pt to stand up this AM and pt was not safe to stand. Per RN, "pt almost went out." PT continues to recommend SNF placement prior to inpt rehab. SW discussed pt in rounds with RN and MD and RN stated that pt's spouse is sick today. SW attempted to call pt's spouse regarding recommendation for SNF and that pt does not meet inpt rehab at this time because pt is not able to tolerate 3 hours of therapy a day. Pt will need to get stronger at a SNF - as recommended by PT - prior to inpt. rehabilitation in order to qualify for inpt rehabilitation. SW placed T/C to spouse - spouse did not answer. SW left non-descriptive message requesting return T/C. ERNESTINE has not received any order for MD for any services at this time. SW will continue to follow. A: Pt for whom a SNF prior to inpt rehabilitation has been recommended by PT. ERNESTINE has not received any order for MD for any services at this time. P: ERNESTINE will continue to follow and await MD order for services. ERNESTINE will attempt to contact spouse again tomorrow (reported by RN to be sick today) and discuss PT recommendations. ERNESTINE will continue to follow. FARHAN Garcia
--- NOTE | 2017-01-14 16:32 | NUR ---
Urinary retention- Bladder scanned and shows >999mls residual. In and out cath done at 1000. #16 indwelling Lerma placed per order with 700mls urine output. Clamped at that time for bladder training, and to be unclamped after 4 hours. Patient tolerated procedure well.
[2017-01-14 20:26] VITALS: BP 126/85; PULSE 101; RESP 16; O2SAT 97
[2017-01-14] MEDS: Insulin GLARgine 100 Unit/mL Syringe SUBQ SCH (22:22)
[2017-01-15] VITALS (9 sets, daily range): BP systolic 106–188; BP diastolic 65–92; PULSE 71–86; RESP 15–20; O2SAT 84–98
--- NOTE | 2017-01-15 06:33 | NUR ---
Bladder training Lerma clamped and released every 4 hours per orders. Patient states she feels bladder filling and urge to void as bladder fills but denies abd pain or discomfort r/t filling. Currently resting without any complaints.
[2017-01-15] MEDS: 0.9% Sodium Chloride 250 ML IV SCH (07:55)
[2017-01-15 08:11] LABS: BASOPHILS % (AUTO) 0.3 % (0-3); EOSINOPHILS % (AUTO) 1.9 % (0-5); MONOCYTES % (AUTO) 11.4 % (4-12); Mean Corpuscular Hemoglobin 29.5 pg (27.0-35.0); Mean Corpuscular Volume 93.7 fL (81-100); NEUTROPHILS % (AUTO) 67.5 % (40-74); Platelet Count 341 bil/L (150-400)
[2017-01-15 09:01] LABS: TROPONIN T 0.089 ug/L (0.0-0.011)
[2017-01-15] MEDS: Insulin LISPRO 300 Unit/3 mL Inj SUBQ SCH ×4 (09:19→21:52)
--- NOTE | 2017-01-15 12:23 | PCM.PNNEPH ---
Subjective Date of Service Jan 15, 2017 Subjective Patient blood pressure is continuing to slowly improve. Unfortunately, once again the nursing staff has not been getting the patient HAS has been ordered. Patient denies any headache, chest pain or shortness of breath. Exam Vital Signs Vital Sign - Last Date Time Temp Pulse Resp B/P Pulse Ox O2 Delivery O2 Flow Rate FiO2 01/15/17 12:19 106/65 01/15/17 12:04 36.8 86 15 98 Room Air Intake and Output 01/14/17 01/14/17 01/15/17 Cumulative From/Thru 15:00 23:00 07:00 01/02/17 19:18 - 01/15/17 06:40 Intake Total 400 ml 850 ml 75384 ml Output Total 1100 ml 33466 ml Balance -700 ml 850 ml 3311 ml Intake Oral 400 ml 850 ml 40254 ml IV Total 43842 ml Packed Cells 370 ml Output Urine Total 1100 ml 17748 ml # Voids 1 # Bowel Movements 2 5 Exam Neck is supple without adenopathy, thyromegaly, or jugular venous distention. Lungs are clear though somewhat diminished. Heart is regular and rhythmical with a soft systolic murmur. Abdomen is soft without any tenderness rebound guarding masses or hepatosplenomegaly. Extremities do not show any evidence of any clubbing, cyanosis, or edema. Skin turgor skull. 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 It is imperative that we get the patient ambulating and getting her use to position change. Give her an additional dose of Aranesp. Luis Vinson DO Jan 15, 2017 12:22
[2017-01-15] MEDS ORDERED: Darbepoetin Alfa 60 mCg/0.3 mL Inj IV ONE (12:25)
--- NOTE | 2017-01-15 14:21 | PCM.PNMED ---
Subjective Date of Service Jan 15, 2017 Subjective Blood pressure is controlled today. Exam Vital Signs Vital Sign - Last Date Time Temp Pulse Resp B/P Pulse Ox O2 Delivery O2 Flow Rate FiO2 01/15/17 12:19 106/65 01/15/17 12:04 36.8 86 15 98 Room Air Intake and Output 01/14/17 01/14/17 01/15/17 Cumulative From/Thru 15:00 23:00 07:00 01/02/17 19:18 - 01/15/17 06:40 Intake Total 400 ml 850 ml 11491 ml Output Total 1100 ml 01678 ml Balance -700 ml 850 ml 3311 ml Intake Oral 400 ml 850 ml 29049 ml IV Total 41521 ml Packed Cells 370 ml Output Urine Total 1100 ml 29146 ml # Voids 1 # Bowel Movements 2 5 Exam General: Alert, Oriented X3, Cooperative, No Acute Distress Head: Normal Eyes: PERRLA, EOMI, Scleral Anicteric Nose: Mucous Membr Moist/[place] Mouth: Mucous Membr Moist/[place] Neck: Other (in brace and limited ROM due to pain) Chest & Lungs: Chest Wall Normal, Clear to auscultation bilat Cardiovascular: Regular Rate/Rhythm Pulses: Other (NL radial, femoral) Abdomen: Non-tender, Non-distended, Normoactive bowel tones, Soft Extremities: No cyanosis/clubbing/edema bilat Neurological: Grossly Neurologically Intact, Cranial Nerves 2-12 Intact, Normal Speech IVs and Medications Medications Reviewed: Medications were reviewed in detail Lab and Diagnostics Result Diagram: 01/15/17 0708 01/15/17 0708 X-Rays, CTs and MRIs PROCEDURE: US RENAL WITH ARTERIES DUPLEX DOPPLER SONOGRAM, LIMITED INDICATIONS: UNCONTROLLED HYPERTENSION Incidental finding of gallbladder sludge. IMPRESSION: 1. Renal arteries are much obscured by overlying bowel gas and renal arterial stenosis cannot be excluded. If indicated MRA could be performed. 2. Gallbladder sludge. Dictated by: Sohail BURROWS Interpreted: Joan Rivera MD on 01/05/2017 at 16: 01 Assessment & Plan 71 year old female with history of atrial fibrillation, CKD, CAD s/p stents, TIA , type 2 diabetes, and uncontrolled hypertension/diabetic autonomic dysreflexia who presents as a transfer from [facility] for a head laceration and C-spine fracture following a ground level fall. # Acute hypertensive urgency, present on admission. - Ongoing and BP better controlled now - Appreciate nephrology consult. Will followup with recs -Current antihypertensive regimen: Chlorthalidone 25 mg by mouth daily, losartan 100 mg daily, labetalol 300 mg by mouth 3 times a day, spironolactone 50 mg po bid -Renal artery duplex ultrasound suboptimal study due to gas shadow - Further titration of BP meds per nephrology # Acute cervical fracture as result of syncope and ground level fall, present on admission. - Continue immobilization with cervical collar. - Per earlier notes by Dr. Wiggins: "discussion with Jacey, pt to wear C- collar for 2 weeks, with follow up imaging and appointment with Dr. Miles in 2 weeks." - Continue with supportive care # Orthostatic Hypotension/Autonomic Dysreflexia. present on admission. - Ongoing - Continue with PT and improving deconditioned state -Compression stocking when ambulating #Urinary retention requiring in and out catheter Lerma inserted per nephrology for bladder training # Type 2 diabetes, uncontrolled, with neuropathy and nephropathy. present on admission. - HgA1C 7.6 - Continue with current coverage # Acute kidney injury on Chronic kidney disease Stage 4, present on admission - Avoid nephrotoxic agents. - Appreciate nephrology consult. Will followup with recs # Initially Suspected urinary tract infection on admission ruled out with negative urine culture. - Post treatment with Ceftriaxone that was stopped on 01/09/17 # History of A-fib post ablation. Stable - Followup # History of coronary artery disease s/p stent to LAD. - Elevated Trop in setting of SHAHIDA and severe hypertension on presentation - Echo without significant wall motion abnormality - No further CP reported during this hospital - Continue with Aspirin and Plavix # History of psoriatic arthritis, presumed stable. - Stelara not available on formulary. Continue on discharge. Dispo: 1-2 days . her who is a retired trauma surgeon demanding for patient to be discharged to inpatient rehab.SW working with family to get her to inpatient rehabilitation. May need to consider discharging to SNF but patient and family want her to go to inpatient rehabilitation. Her also wishes to manage her head laceration and will decide on when to remove the rabia. VTE Prophylaxis: SCDs VTE Mechanical Devices: Anti-Embolic stockings Resuscitation Status: CPR: Attempt Resuscitation Sebastian Abraham MD Jan 15, 2017 14:21
[2017-01-15] MEDS ORDERED: Darbepoetin Alfa 100 mCg/0.5 mL Inj SUBQ ONE (14:40)
[2017-01-15] MEDS ORDERED: Darbepoetin Alfa 100 mCg/0.5 mL Inj IV ONE (14:45)
--- NOTE | 2017-01-15 18:13 | NUR ---
Loose stools/increased mobility patient was able to get into the chair for several hours today, 2 person assist with FWW. there was an orthostatic drop with position change. patient reported feeling lightheaded with nausea. symptoms improved after a few minutes rest. patient was able to sit at edge of bed without orthostatic changes, but did change with standing, as noted able. patient was able to take 2-3 steps to the chair. PT worked with patient and noted similar orthostatic changes with standing. continue to encourage increased activity and mobilty OOB at least 3 times a day. patient also has had 4-[address] Abraham notified. with recent antibiotic use and C.diff culture was ordered and sent to lab. patient placed on isolation precautions until C.diff results come back from lab. continue to monitor.
[2017-01-15] MEDS: Insulin GLARgine 100 Unit/mL Syringe SUBQ SCH (22:04)
[2017-01-15] MEDS: Ondansetron 2 mg/mL 2 mL Inj IVPUSH PRN (22:14)
--- NOTE | 2017-01-16 00:34 | NUR ---
GI: pt. has had nausea and multiple loose stools tonight,
[2017-01-16 05:24] VITALS: BP 149/71; PULSE 76; RESP 20; O2SAT 97
[2017-01-16] MEDS: 0.9% Sodium Chloride 250 ML IV SCH (07:55)
[2017-01-16] MEDS: Insulin LISPRO 300 Unit/3 mL Inj SUBQ SCH ×4 (08:00→21:34)
[2017-01-16 08:39] VITALS: BP 158/77; PULSE 76; RESP 20; O2SAT 97
[2017-01-16 11:47] VITALS: BP 120/66; PULSE 86; RESP 15; O2SAT 98
[2017-01-16 11:56] VITALS: BP 111/48
[2017-01-16 12:04] VITALS: BP 108/58
--- NOTE | 2017-01-16 12:38 | PCM.PNNEPH ---
Subjective Date of Service Jan 16, 2017 Subjective Lying pressure running between 150-160 systolic. Sitting blood pressure running between 100-110 systolic. She is comfortable. She has no shortness of breath or neck pain. Lerma catheter was reinserted due to urinary retention. Patient was constipated now with loose stool after laxatives given. Exam Vital Signs Vital Sign - Last Date Time Temp Pulse Resp B/P Pulse Ox O2 Delivery O2 Flow Rate FiO2 01/16/17 12:04 108/58 01/16/17 11:47 36.5 86 15 98 Room Air Intake and Output 01/15/17 01/15/17 01/16/17 Cumulative From/Thru 15:00 23:00 07:00 01/02/17 19:18 - 01/16/17 06:09 Intake Total 650 ml 350 ml 87719 ml Output Total 1200 ml 1600 ml 53352 ml Balance -550 ml -1250 ml 1511 ml Intake Oral 650 ml 350 ml 52466 ml IV Total 60982 ml Packed Cells 370 ml Output Urine Total 1200 ml 1600 ml 46865 ml # Voids 1 # Bowel Movements 2 5 12 Exam GENERAL: The patient in no apparent distress, and alert and oriented x3. Neck collar. HEENT: Head is normocephalic, staplers. NECK: Supple, no elevation of JVD, No carotid bruits. No lymphadenopathy or thyromegaly. LUNGS: Clear to auscultation, equal breath sounds bilaterally, no wheezing, no rhonchi no rales. HEART: Normal S1/S2, Regular rate and rhythm, no murmurs, rubs or gallops. 2+ pules throughout. ABDOMEN: Soft, nontender, and nondistended. Positive bowel sounds. No hepatosplenomegaly was noted. EXTREMITIES: Without any cyanosis, clubbing, rash, lesions or edema. : Lerma catheter in place with good urine output. Lab and Diagnostics Result Diagram: 01/15/17 0708 01/15/17 0708 X-Rays, CTs and MRIs PROCEDURE: US RENAL WITH ARTERIES DUPLEX DOPPLER SONOGRAM, LIMITED INDICATIONS: UNCONTROLLED HYPERTENSION Incidental finding of gallbladder sludge. IMPRESSION: 1. Renal arteries are much obscured by overlying bowel gas and renal arterial stenosis cannot be excluded. If indicated MRA could be performed. 2. Gallbladder sludge. Dictated by: Sohail BURROWS Interpreted: Joan Rivera MD on 01/05/2017 at 16: 01 Plan Impression 1. Orthostatic hypotension and supine hypertension Suspected autonomic dysreflexia 2. Urinary retention. 3. Chronic kidney disease related to type II diabetes. 4. Diarrhea with h/o constipation. 5. S/p fall with head/neck injury. Plan: Continue chlorthalidone 25 mg by mouth daily, losartan 100 mg daily, labetalol 300 mg TID, spironolactone 75 mg BID. Repeat BMP. Will readjust BP meds if cr worsens. KUB. Continue bladder training. Steve Hart MD Jan 16, 2017 12:38
--- NOTE | 2017-01-16 13:44 | PCM.PNMED ---
Subjective Date of Service Jan 16, 2017 Subjective Patient seen and examined today. She complains of diarrhea. Vitals stable. Exam Vital Signs Vital Sign - Last Date Time Temp Pulse Resp B/P Pulse Ox O2 Delivery O2 Flow Rate FiO2 01/16/17 12:04 108/58 01/16/17 11:47 36.5 86 15 98 Room Air Intake and Output 01/15/17 01/15/17 01/16/17 Cumulative From/Thru 15:00 23:00 07:00 01/02/17 19:18 - 01/16/17 06:09 Intake Total 650 ml 350 ml 43693 ml Output Total 1200 ml 1600 ml 69165 ml Balance -550 ml -1250 ml 1511 ml Intake Oral 650 ml 350 ml 07572 ml IV Total 69501 ml Packed Cells 370 ml Output Urine Total 1200 ml 1600 ml 45935 ml # Voids 1 # Bowel Movements 2 5 12 Exam General: Alert, Oriented X3, Cooperative, No Acute Distress Head: Normal, [place] intact, no signs of bleeding. Neck color on Eyes: PERRLA, EOMI, Scleral Anicteric Nose: Mucous Membr Moist/[place] Mouth: Mucous Membr Moist/[place] Neck: Other (in brace and limited ROM due to pain) Chest & Lungs: Chest Wall Normal, Clear to auscultation bilat Cardiovascular: Regular Rate/Rhythm Pulses: Other (NL radial, femoral) Abdomen: Non-tender, Non-distended, Normoactive bowel tones, Soft Extremities: No cyanosis/clubbing/edema bilat Neurological: Grossly Neurologically Intact, Cranial Nerves 2-12 Intact, Normal Speech Lab and Diagnostics Result Diagram: 01/15/17 0708 01/16/17 1250 X-Rays, CTs and MRIs PROCEDURE: US RENAL WITH ARTERIES DUPLEX DOPPLER SONOGRAM, LIMITED INDICATIONS: UNCONTROLLED HYPERTENSION Incidental finding of gallbladder sludge. IMPRESSION: 1. Renal arteries are much obscured by overlying bowel gas and renal arterial stenosis cannot be excluded. If indicated MRA could be performed. 2. Gallbladder sludge. Dictated by: Sohail BURROWS Interpreted: Joan Rivera MD on 01/05/2017 at 16: 01 Assessment & Plan 71 year old female with history of atrial fibrillation, CKD, CAD s/p stents, TIA , type 2 diabetes, and uncontrolled hypertension/diabetic autonomic dysreflexia who presents as a transfer from [facility] for a head laceration and C-spine fracture following a ground level fall. # Acute hypertensive urgency, present on admission. - Ongoing and BP better controlled now - Appreciate nephrology consult. Will followup with recs -Current antihypertensive regimen: Chlorthalidone 25 mg by mouth daily, losartan 100 mg daily, labetalol 300 mg by mouth 3 times a day, spironolactone 50 mg po bid -Renal artery duplex ultrasound suboptimal study due to gas shadow , repeat pending - Further titration of BP meds per nephrology # Acute cervical fracture as result of syncope and ground level fall, present on admission. - Continue immobilization with cervical collar. - Per earlier notes by Dr. Wiggins: "discussion with [facility], pt to wear C- collar for 2 weeks, with follow up imaging and appointment with Dr. Miles in 2 weeks." - Will do repeat CT today as it has been two weeks, once image results are back , will discuss with Dr. Miles - Continue with supportive care - patient was on pain meds prn, however as per patient (and her 's) request stopped as they believe that it "is the reason" why her blood pressure keeps dropping - Repeat CT : noted displaced fracture as per radiological read, contacted Dr. Trevor Nj , waiting for call back. Discussed the case with Dr. Flanagan (spine surgeon @ [facility]) Recs: continue the collar for two weeks, follow up Xray, and outpatient follow up. # Orthostatic Hypotension/Autonomic Dysreflexia. present on admission. - Ongoing - Continue with PT and improving deconditioned state -Compression stocking when ambulating #Urinary retention requiring in and out catheter Lerma inserted per nephrology for bladder training # Type 2 diabetes, uncontrolled, with neuropathy and nephropathy. present on admission. - HgA1C 7.6 - Continue with current coverage # Acute kidney injury on Chronic kidney disease Stage 4, present on admission - Avoid nephrotoxic agents. - Appreciate nephrology consult. Will followup with recs # Initially Suspected urinary tract infection on admission ruled out with negative urine culture. - Post treatment with Ceftriaxone that was stopped on 01/09/17 # History of A-fib post ablation. Stable - Followup # History of coronary artery disease s/p stent to LAD. - Elevated Trop in setting of SHAHIDA and severe hypertension on presentation - Echo without significant wall motion abnormality - No further CP reported during this hospital - Continue with Aspirin and Plavix # History of psoriatic arthritis, presumed stable. - Stelara not available on formulary. Continue on discharge # Diarrhea - Cdiff ruled out - no abdominal pain - loperamide for symptomatic treatment . Dispo: Family ( who is a retired trauma surgeon) requesting for patient to be discharged to inpatient rehab.SW working with family to get her to inpatient rehabilitation. May need to consider discharging to SNF but patient and family want her to go to inpatient rehabilitation. Her also wishes to manage her head laceration and will decide on when to remove the rabia. VTE Prophylaxis: SCDs VTE Mechanical Devices: Anti-Embolic stockings Resuscitation Status: CPR: Attempt Resuscitation Time spent 45 mins Iain Campoverde MD Jan 16, 2017 13:44
--- NOTE | 2017-01-16 14:30 | NUR ---
Social Work: Continued Discharge Planning/Multi-Disciplinary Rounds D: EMR reviewed. Pt is on day 14 of hospitalization. Pt is not medically stable for discharge. PT continues to recommend SNF placement prior to inpt rehab. SW discussed pt in rounds with RN and MD and RN stated that pt's spouse is sick today. SW attempted to call pt's spouse regarding recommendation for SNF and that pt does not meet inpt rehab at this time because pt is not able to tolerate 3 hours of therapy a day. Pt will need to get stronger at a SNF - as recommended by PT - prior to inpt. rehabilitation in order to qualify for inpt rehabilitation. SW placed T/C to spouse - spouse did not answer. SW left a repeat non-descriptive message with pt's spouse requesting return T/C. SW attempted to discuss pt's care with spouse but pt and spouse not in room at this time. SW will continue to follow. SW received letter that spouse gave to RN. Letter was from Sky Marie MD at [facility]. Letters states that pt has been in providers care since 2016. Letter states that pt remains fully engaged in a variety of actitives of daily living and maintenenance of her household. Letter states that "...pt should be considered to have full rehabilitation potential and evaluation and care at [facility] should be considered appropriate." SW discussed this letter with RN and MD. Per MD and RN, pt is still not able to tolerate intensive 3 hour inpt therapy required for pt qualify at [facility]. PT states that pt is unable to stand and recommends that pt first go to SNF to get stronger so she qualifies for inpt therapy. SW placed T/C to pt's spouse to discuss because pt and spouse were not in room. SW left another message with spouse - will await return phone call. A: Pt for whom a SNF prior to inpt rehabilitation has been recommended by PT. SW has not received any order for MD for any services at this time. P: SW will continue to follow and await MD order for services. SW will attempt to contact spouse again and discuss PT recommendations/letter. SW will continue to follow. Letter placed in pt's hard chart. FARHAN Garcia Addendum: 01/16/17 at 1532 by CHATA Saroj [place] SS SW placed T/C to pt's spouse (cell [phone]) to discuss SNF v inpt rehab. Pt's spouse stated he was a surgeon for 30+ years and he knows what is wrong. He stated that PT has not done a proper evaluation and should not be recommending SNF at this time because pt has not been given the correct medical treatments to prepare for a proper PT evaluation. Pt's spouse stated that pt is not able to stand because she has postural hypotension. Spouse stated that MD stated on 01/15 that "pt is going to need to go to SNF and if you don't agree with recommendations, you will have to go home with pt." Spouse states that we are "putting the cart before the horse." Pt has not been able to tolerate PT because during first three days at [facility], pt was given pain medications that made her constipated. Then, for the next three days, pt was given laxatives that made her incontinent when she tried to work with PT. Spouse also stated that he requested MD to wrap pt's legs to address postural hypotension prior to attempting to get pt to stand. Spouse stated he saw RN wrap pt's legs in LYUBOV bandages which will not work. Spouse stated that pt needs "velcro custom fit appliances with inflatable balloons to adjust pressure while she is standing." Spouse also stated that treating her high blood pressure with higher doses of blood pressure medication is not helping her condition. Spouse stated that he requested special leg wraps form PT and provided literature on her condition and they are just being "lazy." Spouse also stated that he he "knows what a SNF is and he would rather pay for pt to go to a shed than pay for lack of therapy provided at a so called SNF." ERNESTINE confirmed that SW would communicate spouses concerns with MD and RN. ERNESTINE will also contact pt advocate. ERNESTINE confirmed that spouse has pt advocate phone number and that he has already made a report. ERNESTINE updated MD with information from spouse in a written note highlighting is main concerns. contacted PT and reported back to SW that PT can't order special leg wraps for pt and that PT continues to recommend pt discharge to SNF and then go to inpt rehab. FARHAN Garcia
--- NOTE | 2017-01-16 14:55 | DRSVH ---
PROCEDURE: X-RAY KUB ([id number]) INDICATIONS: diarrhea TECHNIQUE: One view of the abdomen acquired. COMPARISON: [facility], RG, CT CHEST/ABD/PEL W/CONTRAST, 05/19/2016, 18:50. FINDINGS: Surgical changes and devices: None. Bowel: Bowel gas pattern is normal. Soft tissues: No suspicious abdominal calcifications. Vascular calcifications noted. Visualized jorge d organ contours appear normal in size. Bones: No suspicious bony lesions. IMPRESSION: Negative examination without evidence of bowel obstruction. Dictated by: Jennie Ackerman MD, PhD on 01/16/2017 at 14:52 Approved by: Jennie Ackerman MD, PhD on 01/16/2017 at 14:53
--- NOTE | 2017-01-16 15:21 | DRSVH ---
PROCEDURE: CT CERVICAL SPINE WITHOUT CONTRAST ([id number]) INDICATIONS: Follow up CT for previous fractures TECHNIQUE: Noncontrast 3 mm thick sections acquired from the skull base to the T4 level. Sagittal and coronal r eformats were then constructed. For radiation dose reduction, the following was used: automated exp osure control, adjustment of mA and/or kV according to patient size. COMPARISON: [facility], RG, CT NECK WITH CONTRAST, 05/19/2016, 18:45. Outside Film, C T, CT CERVICAL SPINE WO CON, 01/02/2017, 10:16. FINDINGS: Image quality: Excellent. Bones: There is odontoid fracture with 2 mm anterior displacement of the distal odontoid. The fractur e was present on the comparison CT dated 01/02/2017 but anterior displacement is new. Grade 1 anteroli sthesis is present at C3 over C4. There is degenerative disc disease, moderate at C5-C6 and C6-C7. Th ere is uncovertebral hypertrophy at C5-C6 and C6-C7. Bilateral facet arthropathy, most pronounced at C3-C4 and C4-C5 on the right. Visualized superior ribs are intact. There is fluid density within mas toids bilaterally. Soft tissues: Prevertebral soft tissues are normal in thickness. No paravertebral hematomas. No ap ical pneumothoraces. There is bibasilar dependent atelectasis. IMPRESSION: 1. A non-acute odontoid fracture. There is increased displacement of the fracture fragment. 2. Multilevel degenerative disc disease and facet arthropathy in cervical spine. The result was discussed with Dr. Campoverde prior to dictation. Dictated by: Sienna Garcia M.D. on 01/16/2017 at 15:09 Approved by: Sienna Garcia M.D. on 01/16/2017 at 15:19
--- NOTE | 2017-01-16 18:30 | NUR ---
Mobility patient had been up OOB x3 today. this am patient was able to stand at the bedside for 2-3 minutes reporting only mild dizziness and nausea SBP from sitting to standing dropped from 140's to 100's systolic. patient was up again to CT and XR. then tis afternoon patient worked with PT. again she was able to stand at bedside, LE LYUBOV wrapped. there was no orthostatic drop. blood pressure and heat rate remained consistent. patient did report mild dizziness but was still able to take several steps with 2 person SBA with FWW. patient's , Dr Ulloa, enquired about an abdominal binder to help with compression to help with the orthostatic hypotension. I let him know that I would make and note and pass on his inquiry. continue to monitor and encourage increased mobility.
[2017-01-16 20:08] VITALS: BP 188/74; PULSE 82; RESP 18; O2SAT 98
[2017-01-16] MEDS: Insulin GLARgine 100 Unit/mL Syringe SUBQ SCH (21:34)
[2017-01-17 05:01] VITALS: BP 192/87; PULSE 79; RESP 18; O2SAT 97
--- NOTE | 2017-01-17 05:53 | NUR ---
BP/Uneventful Night: Pt's BP elevated this am, asymptomatic. Pt denied pain, chest pain and SOB; wearing neck brace. Bladder training ongoing this shift. Slept most of the night, pleasant and cooperative with care.
[2017-01-17 06:46] LABS: BASOPHILS % (AUTO) 0.2 % (0-3); MONOCYTES % (AUTO) 13.5 % (4-12); Mean Corpuscular Volume 92.3 fL (81-100); NEUTROPHILS % (AUTO) 65.4 % (40-74); Platelet Count 392 bil/L (150-400)
[2017-01-17] MEDS: 0.9% Sodium Chloride 250 ML IV SCH (07:49)
[2017-01-17] MEDS: Insulin LISPRO 300 Unit/3 mL Inj SUBQ SCH ×4 (08:11→20:19)
[2017-01-17 08:14] VITALS: BP 165/68; PULSE 77; RESP 15; O2SAT 95
--- NOTE | 2017-01-17 11:56 | PCM.PNNEPH ---
Subjective Date of Service Jan 17, 2017 Subjective Losartan and aldactone d/c'd due to SHAHIDA and hyperkalemia. She has mild neck pain improved with tylenol. Doing bladder training. Exam Vital Signs Vital Sign - Last Date Time Temp Pulse Resp B/P Pulse Ox O2 Delivery O2 Flow Rate FiO2 01/17/17 08:14 36.4 77 15 165/68 95 Room Air Intake and Output 01/16/17 01/16/17 01/17/17 Cumulative From/Thru 15:00 23:00 07:00 01/02/17 19:18 - 01/17/17 05:51 Intake Total 880 ml 300 ml 75280 ml Output Total 550 ml 1750 ml 38018 ml Balance 330 ml -1450 ml 391 ml Intake Oral 880 ml 300 ml 92951 ml IV Total 24680 ml Packed Cells 370 ml Output Urine Total 550 ml 1750 ml 14966 ml # Voids 1 # Bowel Movements 0 12 Exam GENERAL: The patient in no apparent distress, and alert and oriented x3. Neck collar. HEENT: Head is normocephalic, staplers, crusted laceration, intact and dry. NECK: Supple, no elevation of JVD, No carotid bruits. No lymphadenopathy or thyromegaly. LUNGS: Clear to auscultation, equal breath sounds bilaterally, no wheezing, no rhonchi no rales. HEART: Normal S1/S2, Regular rate and rhythm, no murmurs, rubs or gallops. 2+ pules throughout. ABDOMEN: Soft, nontender, and nondistended. Positive bowel sounds. No hepatosplenomegaly was noted. EXTREMITIES: Without any cyanosis, clubbing, rash, lesions or edema. : Lerma catheter in place with good urine output. Lab and Diagnostics Result Diagram: 01/17/1761401/17/17614 X-Rays, CTs and MRIs PROCEDURE: US RENAL WITH ARTERIES DUPLEX DOPPLER SONOGRAM, LIMITED INDICATIONS: UNCONTROLLED HYPERTENSION Incidental finding of gallbladder sludge. IMPRESSION: 1. Renal arteries are much obscured by overlying bowel gas and renal arterial stenosis cannot be excluded. If indicated MRA could be performed. 2. Gallbladder sludge. Dictated by: Sohail BURROWS Interpreted: Joan Rivera MD on 01/05/2017 at 16: 01 Plan Impression 1. Orthostatic hypotension and supine hypertension. normal aldosterone, renin and metanephrine level. pending renal artery doppler. 2. SHAHIDA r/o under hyperfusion in the setting of impaired renal autoregulation in CKD/DM-2. 3. Urinary retention. 4. Chronic kidney disease related to type II diabetes. 5. Diarrhea with h/o constipation. 6. S/p fall with head/neck injury. Plan: Continue chlorthalidone 25 mg daily, labetalol 300 mg TID. Monitor only sitting BP, goal ~ 150-160 systolic. Hold losartan and aldactone for now. Continue bladder training. Repeat labs in am. Steve Hart MD Jan 17, 2017 11:56
--- NOTE | 2017-01-17 12:53 | PCM.PNMED ---
Subjective Date of Service Jan 17, 2017 Subjective Patient seen and examined today.She said she feels the "same". Exam Vital Signs Vital Sign - Last Date Time Temp Pulse Resp B/P Pulse Ox O2 Delivery O2 Flow Rate FiO2 01/17/17 08:14 36.4 77 15 165/68 95 Room Air Intake and Output 01/16/17 01/16/17 01/17/17 Cumulative From/Thru 15:00 23:00 07:00 01/02/17 19:18 - 01/17/17 05:51 Intake Total 880 ml 300 ml 61121 ml Output Total 550 ml 1750 ml 97570 ml Balance 330 ml -1450 ml 391 ml Intake Oral 880 ml 300 ml 52619 ml IV Total 63171 ml Packed Cells 370 ml Output Urine Total 550 ml 1750 ml 28713 ml # Voids 1 # Bowel Movements 0 12 Exam General: Alert, Oriented X3, Cooperative, No Acute Distress Head: Normal, Barry intact, no signs of bleeding. Neck color on Eyes: PERRLA, EOMI, Scleral Anicteric Nose: Mucous Membr Moist/[place] Mouth: Mucous Membr Moist/[place] Neck: Other (in brace and limited ROM due to pain) Chest & Lungs: Chest Wall Normal, Clear to auscultation bilat Cardiovascular: Regular Rate/Rhythm Pulses: Other (NL radial, femoral) Abdomen: Non-tender, Non-distended, Normoactive bowel tones, Soft Extremities: No cyanosis/clubbing/edema bilat Neurological: Grossly Neurologically Intact, Cranial Nerves 2-12 Intact, Normal Speech Lab and Diagnostics Result Diagram: 01/17/1761401/17/1715 X-Rays, CTs and MRIs PROCEDURE: US RENAL WITH ARTERIES DUPLEX DOPPLER SONOGRAM, LIMITED INDICATIONS: UNCONTROLLED HYPERTENSION Incidental finding of gallbladder sludge. IMPRESSION: 1. Renal arteries are much obscured by overlying bowel gas and renal arterial stenosis cannot be excluded. If indicated MRA could be performed. 2. Gallbladder sludge. Dictated by: Sohail BURROWS Interpreted: Joan Rivera MD on 01/05/2017 at 16: 01 Assessment & Plan 71 year old female with history of atrial fibrillation, CKD, CAD s/p stents, TIA , type 2 diabetes, and uncontrolled hypertension/diabetic autonomic dysreflexia who presents as a transfer from [facility] for a head laceration and C-spine fracture following a ground level fall. # Acute hypertensive urgency with orthostatic hypotension, present on admission. - will monitor blood pressure once patient is sitting up, it seems like lying down blood pressures have been relatively high in general - Appreciate nephrology consult. Will followup with recs - Current antihypertensive regimen: labetalol 200 mg by mouth 3 times a day, Chlorthalidone 25 mg po daily, potassium sparing diurectics have been stopped due to hyperkalemia -Renal artery duplex ultrasound suboptimal study due to gas shadow , repeat pending # Acute cervical fracture as result of syncope and ground level fall, present on admission. - Continue immobilization with cervical collar. - Per earlier notes by Dr. Wiggins: "discussion with [facility], pt to wear C- collar for 2 weeks, with follow up imaging and appointment with Dr. Miles in 2 weeks." - Will do repeat CT today as it has been two weeks, once image results are back , will discuss with Dr. Miles - Continue with supportive care - patient was on pain meds prn, however as per patient (and her 's) request stopped as they believe that it "is the reason" why her blood pressure keeps dropping - Repeat CT : noted displaced fracture as per radiological read, contacted Dr. Trevor Nj , waiting for call back. Discussed the case with Dr. Flanagan (spine surgeon @ [facility]) Recs: continue the collar for two weeks, follow up Xray, and outpatient follow up. # Orthostatic Hypotension/Autonomic Dysreflexia. present on admission. - Ongoing - Continue with PT and improving deconditioned state -Compression stocking when ambulating #Urinary retention requiring in and out catheter Lerma inserted per nephrology for bladder training # Type 2 diabetes, uncontrolled, with neuropathy and nephropathy. present on admission. - HgA1C 7.6 - Continue with current coverage # Acute kidney injury on Chronic kidney disease Stage 4, present on admission - Avoid nephrotoxic agents. - Appreciate nephrology consult. Will followup with recs # Initially Suspected urinary tract infection on admission ruled out with negative urine culture. - Post treatment with Ceftriaxone that was stopped on 01/09/17 # History of A-fib post ablation. Stable - Followup # History of coronary artery disease s/p stent to LAD. with diastolic heart failure (EF 65-70%) - Elevated Trop in setting of SHAHIDA and severe hypertension on presentation - Echo without significant wall motion abnormality - No further CP reported during this hospital - Continue with Aspirin and Plavix # History of psoriatic arthritis, presumed stable. - Stelara not available on formulary. Continue on discharge # Diarrhea - Cdiff ruled out - no abdominal pain - loperamide for symptomatic treatment . Dispo: Family ( who is a retired trauma surgeon) requesting for patient to be discharged to inpatient rehab.SW working with family to get her to inpatient rehabilitation. May need to consider discharging to SNF but patient and family want her to go to inpatient rehabilitation. Her also wishes to manage her head laceration and will decide on when to remove the barry. VTE Prophylaxis: SCDs VTE Mechanical Devices: Anti-Embolic stockings Resuscitation Status: CPR: Attempt Resuscitation Iain Campoverde MD Jan 17, 2017 12:53
--- NOTE | 2017-01-17 15:16 | NUR ---
spiritual care:follow up conversational visit. pt sitting/lying in chair and with energetic voice gave updates about slow medical progress. friend in room. pt stated she is missing her dog, feeling relief at her 's advocacy and that they claire 50 years of marriage this year. pt in good spirits. appreciative of confucianist visitors.
[2017-01-17 16:15] VITALS: BP 155/75; PULSE 82; RESP 18; O2SAT 98
--- NOTE | 2017-01-17 17:35 | NUR ---
Blood Pressure/Ambulation/Clear liquid Diet & NPO Pts. blood pressure continues to be high when laying down and when sitting to standing position drops dramatically. Pt. states feeling "SOB, dizzy, about to faint" when standing and waiting for BP cuff to read BP. Pt. recovers when sitting after about 10min-15min. PT worked with Pt this afternoon and stated Pt. ambulated about 5ft-8ft when not waiting for cuff to read BP when standing. See PT for notes. Pt. started clear liquids today in the AM and is supposed to be clear liquids for 24 hours and then NPO for 8 hours for Renal US tomorrow. Will pass onto next shift RN. Pt. is in bed resting and with no c/o pain, CP, or SOB. Will continue to monitor.
[2017-01-17 20:15] VITALS: BP 179/77; PULSE 74; RESP 18; O2SAT 97
[2017-01-17] MEDS: Insulin GLARgine 100 Unit/mL Syringe SUBQ SCH (20:24)
[2017-01-18 04:51] VITALS: BP 177/81; PULSE 77; RESP 18; O2SAT 94
[2017-01-18 07:18] LABS: BASOPHILS % (AUTO) 0.3 % (0-3); EOSINOPHILS % (AUTO) 1.9 % (0-5); MONOCYTES % (AUTO) 12.5 % (4-12); Mean Corpuscular Hemoglobin 30.6 pg (27.0-35.0); Mean Corpuscular Volume 93.8 fL (81-100); NEUTROPHILS % (AUTO) 63.6 % (40-74); Platelet Count 385 bil/L (150-400)
[2017-01-18] MEDS: 0.9% Sodium Chloride 250 ML IV SCH (07:38)
[2017-01-18] MEDS: Insulin LISPRO 300 Unit/3 mL Inj SUBQ SCH ×4 (08:00→22:00)
[2017-01-18 09:27] VITALS: BP 203/100; PULSE 84; RESP 18; O2SAT 97
[2017-01-18 12:42] VITALS: BP 159/69; PULSE 80; RESP 18; O2SAT 96
[2017-01-18 14:52] VITALS: BP 156/60; PULSE 81
[2017-01-18 14:57] VITALS: BP 144/73; PULSE 83
--- NOTE | 2017-01-18 16:14 | DRSVH ---
PROCEDURE: US RENAL WITH ARTERIES DUPLEX DOPPLER SONOGRAM, LIMITED INDICATIONS: HTN TECHNIQUE: Real time scanning was performed of both kidneys, followed by Color and pulsed Doppler in terrogation of the renal vessels. COMPARISON: [facility], US, US RENAL+ART [facility], 01/05/2017, 12:25. FINDINGS: Aortic peak systolic velocity: 87 cm/s. Right side: Marin-scale imaging: Kidney is 13.0 cm long; renal cortical thickness is 1.4 cm. No hydronephrosis. No nephrolithiasis. Renal cortex is normal in echogenicity. No suspicious solid renal masses. Proximal renal artery peak systolic velocity: 92 cm/s. Mid renal artery peak systolic velocity: 129 cm/s. Distal renal artery peak systolic velocity: 36 cm/s. Renal vein: Patent, without thrombus. Peak renal/aortic ratio (RAR): 1.48 . Left side: Marin-scale imaging: Kidney is 13.5 cm long; renal cortical thickness is 1.5 cm. No hydronephrosis. No nephrolithiasis. Renal cortex is normal in echogenicity. No suspicious solid renal masses. Proximal renal artery peak systolic velocity: 54 cm/s. Mid-renal artery peak systolic velocity: Not well-seen Distal renal artery peak systolic velocity: 38 cm/s. Renal vein: Patent, without thrombus. Peak renal/aortic ratio (RAR): 0.62 . IMPRESSION: Suboptimal study. Grossly there is no sonographic evidence of renal artery stenosis. Dictated by: Juaquin Golden M.D. on 01/18/2017 at 16:04 Approved by: Juaquin Golden M.D. on 01/18/2017 at 16:12
--- NOTE | 2017-01-18 17:10 | PCM.PNMED ---
Subjective Date of Service Jan 18, 2017 Subjective Patient seen and examined. Doing much better today. Was able to sit on the edge of the bed. Vitals stable. Exam Vital Signs Vital Sign - Last Date Time Temp Pulse Resp B/P Pulse Ox O2 Delivery O2 Flow Rate FiO2 01/18/17 14:57 83 144/73 01/18/17 12:42 36.7 18 96 Room Air Intake and Output 01/17/17 01/17/17 01/18/17 Cumulative From/Thru 15:00 23:00 07:00 01/02/17 19:18 - 01/18/17 06:21 Intake Total 1300 ml 400 ml 64191 ml Output Total 1600 ml 1100 ml 03786 ml Balance -300 ml -700 ml -609 ml Intake Oral 1300 ml 400 ml 21251 ml IV Total 34503 ml Packed Cells 370 ml Output Urine Total 1600 ml 1100 ml 95481 ml # Voids 1 # Bowel Movements 12 Exam General: Alert, Oriented X3, Cooperative, No Acute Distress Head: Normal, Barry intact, no signs of bleeding. Neck color on Neck: Other (in brace and limited ROM due to pain) Chest & Lungs: Chest Wall Normal, Clear to auscultation bilat Cardiovascular: Regular Rate/Rhythm Abdomen: Non-tender, Non-distended, Normoactive bowel tones, Soft Lab and Diagnostics Result Diagram: 01/18/17 0704 01/18/17 0704 X-Rays, CTs and MRIs PROCEDURE: US RENAL WITH ARTERIES DUPLEX DOPPLER SONOGRAM, LIMITED INDICATIONS: UNCONTROLLED HYPERTENSION Incidental finding of gallbladder sludge. IMPRESSION: 1. Renal arteries are much obscured by overlying bowel gas and renal arterial stenosis cannot be excluded. If indicated MRA could be performed. 2. Gallbladder sludge. Dictated by: Sohail Jones RRRoya Interpreted: Joan Rivera MD on 01/05/2017 at 16: 01 Assessment & Plan 71 year old female with history of atrial fibrillation, CKD, CAD s/p stents, TIA , type 2 diabetes, and uncontrolled hypertension/diabetic autonomic dysreflexia who presents as a transfer from [facility] for a head laceration and C-spine fracture following a ground level fall. # Orthostatic hypotension likely 2/2 autonomic dysreflexia , present on admission, ongoing - sitting bp much better, - Appreciate nephrology consult. Will followup with recs - Current antihypertensive regimen: labetalol 200 mg by mouth 3 times a day, Chlorthalidone 25 mg po daily, potassium sparing diurectics have been stopped due to hyperkalemia - Renal artery duplex negative for renal arterial stenosis - will try midodrine before patient gets physical therapy to help with standing blood pressure # Acute cervical fracture as result of syncope and ground level fall, present on admission. - Continue immobilization with cervical collar. - Per earlier notes by Dr. Wiggins: "discussion with [facility], pt to wear C- collar for 2 weeks, with follow up imaging and appointment with Dr. Miles in 2 weeks." - Will do repeat CT today as it has been two weeks, once image results are back , will discuss with Dr. Miles - Continue with supportive care - patient was on pain meds prn, however as per patient (and her 's) request stopped as they believe that it "is the reason" why her blood pressure keeps dropping - Repeat CT : noted displaced fracture as per radiological read, contacted Dr. Trevor Nj , waiting for call back. Discussed the case with Dr. Flanagan (spine surgeon @ [facility]) Recs: continue the collar for two weeks, follow up Xray, and outpatient follow up. #Urinary retention requiring in and out catheter - Lerma inserted per nephrology for bladder training - will do voiding trials today #h/o complex migraines - as per patient and , patient has had extensive work up in the past due to hemiparesis and tia like symptoms, and was recommended by neurologist to treat it as complex migraine and "sleep it off" # Type 2 diabetes, uncontrolled, with neuropathy and nephropathy. present on admission. - HgA1C 7.6 - Continue with current coverage # Acute kidney injury on Chronic kidney disease Stage 4, present on admission - Avoid nephrotoxic agents. - Appreciate nephrology consult. - Cr function stabilized # Initially Suspected urinary tract infection on admission ruled out with negative urine culture. - Post treatment with Ceftriaxone that was stopped on 01/09/17 # History of A-fib post ablation. Stable - Followup # History of coronary artery disease s/p stent to LAD. with diastolic heart failure (EF 65-70%) - Elevated Trop in setting of SHAHIDA and severe hypertension on presentation - Echo without significant wall motion abnormality - No further CP reported during this hospital - Continue with Aspirin and Plavix # History of psoriatic arthritis, presumed stable. - Stelara not available on formulary. Continue on discharge # Diarrhea - resolved - Cdiff ruled out - no abdominal pain - loperamide for symptomatic treatment . Dispo: Family ( who is a retired trauma surgeon) requesting for patient to be discharged to inpatient rehab.SW working with family to get her to inpatient rehabilitation. May need to consider discharging to SNF but patient and family want her to go to inpatient rehabilitation. Her also wishes to manage her head laceration and will decide on when to remove the barry. Patient's bp is now improving and she was able to sit on the edge of the bed by herself. VTE Prophylaxis: SCDs VTE Mechanical Devices: Anti-Embolic stockings Resuscitation Status: CPR: Attempt Resuscitation Time spent 35 mins Iain Campoverde MD Jan 18, 2017 17:10
--- NOTE | 2017-01-18 18:41 | NUR ---
Activity Dangled at edge of bed with minimal change in BP. Complains of slight dizziness that resolved within 1 minute, otherwise asymptomatic. See PT notes.
[2017-01-18 20:55] VITALS: BP 199/94; PULSE 82; RESP 20; O2SAT 95
[2017-01-18] MEDS: Insulin GLARgine 100 Unit/mL Syringe SUBQ SCH (22:07)
[2017-01-19 00:55] VITALS: BP 170/78; PULSE 74; RESP 20; O2SAT 95
[2017-01-19 05:45] VITALS: BP 157/76; PULSE 69; RESP 20; O2SAT 97
--- NOTE | 2017-01-19 06:04 | NUR ---
NOC PT b/p remains hypertensive over night. PT c/o minimal pain that does not require any meds. C collar readjusted to fit appropriately. Bladder training continues, although pt does not feel her bladder "full." Adequate urine output. No BM yet. BS hypoactive. Neuro checks display generalized weakness with bilateral feet numb/painful r/t diabetic neuropathy and not cervical fracture. On RA. [place] to L anterior forehead are c/d/i and [employer]ED [employer]. PT able to turn self in bed. WIll CTM b/p and discuss removal of pettit for voiding trial if deemed appropriate by medical team. Dispo pending at this time.
[2017-01-19] MEDS: Insulin LISPRO 300 Unit/3 mL Inj SUBQ SCH ×4 (07:23→22:35)
--- NOTE | 2017-01-19 08:01 | NUR ---
NUTRITION FOLLOW-UP: ASSESS: Pt is a 71 YO female admitted with head laceration and C-spine fracture following a ground level fall. Per H&P pt had poor PO intake for 2 weeks prior to admit. She is currently on a heart healthy consistent carbohydrate diet and her PO intake has been slowly improving. She ate 100% of her dinner last night, which is a record. She reports that her appetite is much improved, and she is able to chew food better as time goes on. She reported that she sometimes has trouble chewing salads, but liquids are fine. This is hospital day 17 for this patient, related to ongoing orthostatic hypotension, likely due autonomic dysreflexia, urinary retention, improving SHAHIDA. Her family is requesting inpatient rehab for patient. Code status: full. PMHX: T2DM, HTN, CKD stg 4, CAD, TIA LABS: Reviewed. BUN 35, Cr 2.27, Glu 106. MEDS:Reviewed. Insulin. GI: BM x 5 (01/16). SKIN: Dc 18, head laceration, bruising. WT: 83.5 kg, BMI 29.0 kg/m2. Admit weight: 87.5kg, BMI 31.1 kg/m2, IBW: 59.1 kg DIET: Heart healthy consistent carb. PO intake 100% dinner last night, increased from 25% - 50% trays. EST. NEEDS: Kcals: 2185-2625kcal/day (25-30kcal/kg) Pro: 70-90g/day (1.2-1.5g/kg IBW) NUTRITION DIAGNOSIS: 1) Inadequate oral intake related to altered GI function as evidence by poor PO intake x 2 weeks and persistent nausea/vomiting - IMPROVED. NUTRITION INTERVENTION: 1) Pt continues to receive cottage cheese with fruit and Glucerna as supplement. MONITOR / EVAL: PO, GI, labs, wt, POC, nutrition status. Will continue to monitor per moderate nutrition risk guidelines.
[2017-01-19 08:45] LABS: Mean Corpuscular Hemoglobin 29.8 pg (27.0-35.0); Mean Corpuscular Volume 95.4 fL (81-100); Platelet Count 415 bil/L (150-400)
[2017-01-19 08:46] LABS: MONOCYTES % (AUTO) 13.1 % (4-12); NEUTROPHILS % (AUTO) 60.7 % (40-74)
[2017-01-19 08:47] LABS: BASOPHILS % (AUTO) 0.2 % (0-3)
--- NOTE | 2017-01-19 13:42 | PCM.PNMED ---
Subjective Date of Service Jan 19, 2017 Subjective Patient seen and examined today. Depressed about failing the PT yesterday. Exam Vital Signs Vital Sign - Last Date Time Temp Pulse Resp B/P Pulse Ox O2 Delivery O2 Flow Rate FiO2 01/19/17 12:01 Room Air 01/19/17 05:45 36.7 69 20 157/76 97 Intake and Output 01/18/17 01/18/17 01/19/17 Cumulative From/Thru 15:00 23:00 07:00 01/02/17 19:18 - 01/19/17 05:40 Intake Total 1020 ml 07096 ml Output Total 1900 ml 79835 ml Balance -880 ml -1489 ml Intake Oral 1020 ml 59187 ml IV Total 65260 ml Packed Cells 370 ml Output Urine Total 1900 ml 08308 ml # Voids 1 # Bowel Movements 12 Exam General: Alert, Oriented X3, Cooperative, No Acute Distress Head: Normal, [place] intact, no signs of bleeding. Neck color on Neck: Other (in brace and limited ROM due to pain) Chest & Lungs: Chest Wall Normal, Clear to auscultation bilat Cardiovascular: Regular Rate/Rhythm Abdomen: Non-tender, Non-distended, Normoactive bowel tones, Soft Lab and Diagnostics Result Diagram: 01/19/17 0550 01/19/17 0550 X-Rays, CTs and MRIs PROCEDURE: US RENAL WITH ARTERIES DUPLEX DOPPLER SONOGRAM, LIMITED INDICATIONS: UNCONTROLLED HYPERTENSION Incidental finding of gallbladder sludge. IMPRESSION: 1. Renal arteries are much obscured by overlying bowel gas and renal arterial stenosis cannot be excluded. If indicated MRA could be performed. 2. Gallbladder sludge. Dictated by: Sohail Jones RR Interpreted: Joan Rivera MD on 01/05/2017 at 16: 01 Assessment & Plan 71 year old female with history of atrial fibrillation, CKD, CAD s/p stents, TIA , type 2 diabetes, and uncontrolled hypertension/diabetic autonomic dysreflexia who presents as a transfer from [facility] for a head laceration and C-spine fracture following a ground level fall. # Orthostatic hypotension likely 2/2 autonomic dysreflexia , present on admission, ongoing - sitting bp much better, - Appreciate nephrology consult. Will followup with recs - decrease labetalol to 150 mg by mouth 3 times a day, Chlorthalidone 25 mg po daily, add losartan 25 mg daily - Renal artery duplex negative for renal arterial stenosis - will try midodrine before patient gets physical therapy to help with standing blood pressure - will do acth stimulation test # Acute cervical fracture as result of syncope and ground level fall, present on admission. - Continue immobilization with cervical collar. - Per earlier notes by Dr. Wiggins: "discussion with [facility], pt to wear C- collar for 2 weeks, with follow up imaging and appointment with Dr. Miles in 2 weeks." - Will do repeat CT today as it has been two weeks, once image results are back , will discuss with Dr. Miles - Continue with supportive care - patient was on pain meds prn, however as per patient (and her 's) request stopped as they believe that it "is the reason" why her blood pressure keeps dropping - Repeat CT : noted displaced fracture as per radiological read, contacted Dr. Trevor Nj , waiting for call back. Discussed the case with Dr. Flanagan (spine surgeon @ [facility]) Recs: continue the collar for two weeks, follow up Xray, and outpatient follow up. #Urinary retention requiring in and out catheter - Lerma inserted per nephrology for bladder training - will do voiding trials today #h/o complex migraines - as per patient and , patient has had extensive work up in the past due to hemiparesis and tia like symptoms, and was recommended by neurologist to treat it as complex migraine and "sleep it off" # Type 2 diabetes, uncontrolled, with neuropathy and nephropathy. present on admission. - HgA1C 7.6 - Continue with current coverage # Acute kidney injury on Chronic kidney disease Stage 4, present on admission - Avoid nephrotoxic agents. - Appreciate nephrology consult. - Cr function stabilized # Initially Suspected urinary tract infection on admission ruled out with negative urine culture. - Post treatment with Ceftriaxone that was stopped on 01/09/17 # History of A-fib post ablation. Stable - Followup # History of coronary artery disease s/p stent to LAD. with diastolic heart failure (EF 65-70%) - Elevated Trop in setting of SHAHIDA and severe hypertension on presentation - Echo without significant wall motion abnormality - No further CP reported during this hospital - Continue with Aspirin and Plavix # History of psoriatic arthritis, presumed stable. - Stelara not available on formulary. Continue on discharge # Diarrhea - resolved - Cdiff ruled out - no abdominal pain - loperamide for symptomatic treatment . Dispo: Family ( who is a retired trauma surgeon) requesting for patient to be discharged to inpatient rehab.SW working with family to get her to inpatient rehabilitation. May need to consider discharging to SNF but patient and family want her to go to inpatient rehabilitation. Her also wishes to manage her head laceration and will decide on when to remove the barry. Patient's bp is now improving and she was able to sit on the edge of the bed by herself. VTE Prophylaxis: SCDs VTE Mechanical Devices: Intermittant Pneumatic CD Resuscitation Status: CPR: Attempt Resuscitation Time spent 45 mins Iain Campoverde MD Jan 19, 2017 13:42
--- NOTE | 2017-01-19 14:49 | NUR ---
Social Work- Continued D/C Planning/ Multidisciplinary Rounds Data: EMR reviewed. Pt is on day 17 of hospitalization per H&P. Pt is not medically ready for discharge. Per rounds, MD and nephrology are adjusting pt's medication to increase her ability to participate with PT. PT continues to recommend SNF. Pt is not able to tolerate inpt rehab at this time. MD and pt/family will have to come to an agreement regarding discharge plan. SW is not taking an active role at this time and will assist when requested by MD. No discharge planning orders have been placed at this time. SW will continue to follow. Assessment: Pt who is medically complex and who may require SNF Plan: MD and pt/family will have to come to an agreement regarding discharge plan. SW is not taking an active role at this time and will assist when requested by MD. No discharge planning orders have been placed at this time. SW will continue to follow. FARHAN Uribe
--- NOTE | 2017-01-19 17:48 | PCM.PNNEPH ---
Subjective Date of Service Jan 19, 2017 Subjective Midodrine 2.5 mg given prior to PT. She still became lightheaded. ACTH stim test ordered. She is not in pain. Denies F/C/N/V/CP/SOB. Exam Vital Signs Vital Sign - Last Date Time Temp Pulse Resp B/P Pulse Ox O2 Delivery O2 Flow Rate FiO2 01/19/17 12:01 Room Air 01/19/17 05:45 36.7 69 20 157/76 97 Intake and Output 01/18/17 01/18/17 01/19/17 Cumulative From/Thru 15:00 23:00 07:00 01/02/17 19:18 - 01/19/17 05:40 Intake Total 1020 ml 20067 ml Output Total 1900 ml 19752 ml Balance -880 ml -1489 ml Intake Oral 1020 ml 81306 ml IV Total 06248 ml Packed Cells 370 ml Output Urine Total 1900 ml 20360 ml # Voids 1 # Bowel Movements 12 Exam GENERAL: The patient in no apparent distress, and alert and oriented x3. Neck collar. HEENT: Head is normocephalic, crusted laceration, intact and dry. NECK: Supple, no elevation of JVD, No carotid bruits. No lymphadenopathy or thyromegaly. LUNGS: Clear to auscultation, equal breath sounds bilaterally, no wheezing, no rhonchi no rales. HEART: Normal S1/S2, Regular rate and rhythm, no murmurs, rubs or gallops. 2+ pules throughout. ABDOMEN: Soft, nontender, and nondistended. Positive bowel sounds. No hepatosplenomegaly was noted. EXTREMITIES: Without any cyanosis, clubbing, rash, lesions or edema. : Pettit catheter in place with good urine output. Lab and Diagnostics Result Diagram: 01/19/17 0550 01/19/17 0550 X-Rays, CTs and MRIs PROCEDURE: US RENAL WITH ARTERIES DUPLEX DOPPLER SONOGRAM, LIMITED INDICATIONS: UNCONTROLLED HYPERTENSION Incidental finding of gallbladder sludge. IMPRESSION: 1. Renal arteries are much obscured by overlying bowel gas and renal arterial stenosis cannot be excluded. If indicated MRA could be performed. 2. Gallbladder sludge. Dictated by: Sohail BURROWS Interpreted: Joan Rivera MD on 01/05/2017 at 16: 01 Plan Impression 1. Orthostatic hypotension and supine hypertension. normal aldosterone, renin and metanephrine level. Normal renal artery doppler. 2. SHAHIDA r/o under hyperfusion in the setting of impaired renal autoregulation in CKD/DM-2. 3. Urinary retention. 4. Chronic kidney disease related to type II diabetes. 5. Diarrhea with h/o constipation. 6. S/p fall with head/neck injury. Plan: Continue chlorthalidone 25 mg daily, labetalol 200 mg TID. Monitor only sitting BP, goal ~ 150-160 systolic. Resume losartan. D/c pettit cath. ACTH stim test. Rec consult neurology. Steve Hart MD Jan 19, 2017 17:48
[2017-01-19 20:00] VITALS: BP 167/77; PULSE 72; RESP 20; O2SAT 98
[2017-01-19] MEDS: Insulin GLARgine 100 Unit/mL Syringe SUBQ SCH (22:35)
[2017-01-20] MEDS ORDERED: Cosyntropin 0.25 mg/mL Inj IV ONE ×2 (06:00)
[2017-01-20 06:15] VITALS: BP 172/89; PULSE 88; RESP 20; O2SAT 98
--- NOTE | 2017-01-20 06:40 | NUR ---
Activity/BP Pt continues to have elevated BP at rest, becomes dizzy when sitting up or standing. C/o H/A this AM 8/10, rec'd tylenol per orders. Pt requires 2EA with transfers using gait belt due to dizziness. Bladder training in process, pettit cath in place to gravity, clamped for 4hrs then unclamped for 5 minutes. Pt states she feels the urge to urinate. Call light in reach, care continues
--- NOTE | 2017-01-20 09:11 | PCM.PNMED ---
Subjective Date of Service Jan 20, 2017 Subjective Patient seen and examined. In good spirits today. Says she feels much better. Was able to sit up for 10 hours yesterday. Vitals stable. Exam Vital Signs Vital Sign - Last Date Time Temp Pulse Resp B/P Pulse Ox O2 Delivery O2 Flow Rate FiO2 01/20/17 06:15 36.8 88 20 172/89 98 Room Air Intake and Output 01/19/17 01/19/17 01/20/17 Cumulative From/Thru 15:00 23:00 07:00 01/02/17 19:18 - 01/20/17 06:26 Intake Total 400 ml 910 ml 800 ml 09252 ml Output Total 600 ml 550 ml 1100 ml 98654 ml Balance -200 ml 360 ml -300 ml -1629 ml Intake Oral 400 ml 910 ml 800 ml 36908 ml IV Total 68694 ml Packed Cells 370 ml Output Urine Total 600 ml 550 ml 1100 ml 50893 ml # Voids 1 # Bowel Movements 0 0 0 12 Lab and Diagnostics Result Diagram: 01/19/17 0550 01/20/17 0611 X-Rays, CTs and MRIs PROCEDURE: US RENAL WITH ARTERIES DUPLEX DOPPLER SONOGRAM, LIMITED INDICATIONS: UNCONTROLLED HYPERTENSION Incidental finding of gallbladder sludge. IMPRESSION: 1. Renal arteries are much obscured by overlying bowel gas and renal arterial stenosis cannot be excluded. If indicated MRA could be performed. 2. Gallbladder sludge. Dictated by: Sohail Jones [facility] Interpreted: Joan Rivera MD on 01/05/2017 at 16: 01 Assessment & Plan 71 year old female with history of atrial fibrillation, CKD, CAD s/p stents, TIA , type 2 diabetes, and uncontrolled hypertension/diabetic autonomic dysreflexia who presents as a transfer from [facility] for a head laceration and C-spine fracture following a ground level fall. # Orthostatic hypotension likely 2/2 autonomic dysreflexia , present on admission, ongoing - sitting bp much better, although on the higher side, patient is asymptomatic. Her bp from sitting to standing ranges from 170s to 90s. Treating bp aggressively does not help as her orthostatics are worse, and patient is bed bound. Will keep systolic goal at 160s-170s, as long as it is asymptomatic. - Appreciate nephrology consult. Will followup with recs - decrease labetalol to 150 mg by mouth 3 times a day, Chlorthalidone 25 mg po daily, added losartan 12.5 mg daily - Renal artery duplex negative for renal arterial stenosis - will try midodrine before patient gets physical therapy to help with standing blood pressure - will do acth stimulation test # Acute cervical fracture as result of syncope and ground level fall, present on admission. - Continue immobilization with cervical collar. - Per earlier notes by Dr. Wiggins: "discussion with [facility], pt to wear C- collar for 2 weeks, with follow up imaging and appointment with Dr. Miles in 2 weeks." - Will do repeat CT today as it has been two weeks, once image results are back , will discuss with Dr. Miles - Continue with supportive care - patient was on pain meds prn, however as per patient (and her 's) request stopped as they believe that it "is the reason" why her blood pressure keeps dropping - Repeat CT : noted displaced fracture as per radiological read, contacted Dr. Trevor Nj , waiting for call back. Discussed the case with Dr. Flanagan (spine surgeon @ [facility]) Recs: continue the collar for two weeks, follow up Xray, and outpatient follow up. #Urinary retention requiring in and out catheter - Lerma inserted per nephrology for bladder training - will do voiding trials today #h/o complex migraines - as per patient and , patient has had extensive work up in the past due to hemiparesis and tia like symptoms, and was recommended by neurologist to treat it as complex migraine and "sleep it off" # Type 2 diabetes, uncontrolled, with neuropathy and nephropathy. present on admission. - HgA1C 7.6 - Continue with current coverage # Acute kidney injury on Chronic kidney disease Stage 4, present on admission - Avoid nephrotoxic agents. - Appreciate nephrology consult. - Cr function stabilized # Initially Suspected urinary tract infection on admission ruled out with negative urine culture. - Post treatment with Ceftriaxone that was stopped on 01/09/17 # History of A-fib post ablation. Stable - Followup # History of coronary artery disease s/p stent to LAD. with diastolic heart failure (EF 65-70%) - Elevated Trop in setting of SHAHIDA and severe hypertension on presentation - Echo without significant wall motion abnormality - No further CP reported during this hospital - Continue with Aspirin and Plavix # History of psoriatic arthritis, presumed stable. - Stelara not available on formulary. Continue on discharge # Constipation - patient complaining of constipation today - wants suppository Dispo: Pending clinical improvement. VTE Prophylaxis: SCDs VTE Mechanical Devices: Intermittant Pneumatic CD Resuscitation Status: CPR: Attempt Resuscitation Time spent 35 mins Iain Campoverde MD Jan 20, 2017 09:11
[2017-01-20 09:15] VITALS: BP 143/79; PULSE 81; RESP 16; O2SAT 97
[2017-01-20] MEDS: Insulin LISPRO 300 Unit/3 mL Inj SUBQ SCH ×4 (09:33→21:11)
--- NOTE | 2017-01-20 12:32 | PCM.PNNEPH ---
Subjective Date of Service Jan 20, 2017 Subjective She stated that she feels better today. She was able to sit up for 10 hours yesterday. orthostatic BP noted. Exam Vital Signs Vital Sign - Last Date Time Temp Pulse Resp B/P Pulse Ox O2 Delivery O2 Flow Rate FiO2 01/20/17 09:15 36.4 81 16 143/79 97 Room Air Intake and Output 01/19/17 01/19/17 01/20/17 Cumulative From/Thru 15:00 23:00 07:00 01/02/17 19:18 - 01/20/17 06:26 Intake Total 400 ml 910 ml 800 ml 61708 ml Output Total 600 ml 550 ml 1100 ml 70544 ml Balance -200 ml 360 ml -300 ml -1629 ml Intake Oral 400 ml 910 ml 800 ml 93969 ml IV Total 05679 ml Packed Cells 370 ml Output Urine Total 600 ml 550 ml 1100 ml 06162 ml # Voids 1 # Bowel Movements 0 0 0 12 Exam GENERAL: The patient in no apparent distress, and alert and oriented x3. Neck collar. HEENT: Head is normocephalic, crusted laceration, intact and dry. NECK: Supple, no elevation of JVD, No carotid bruits. No lymphadenopathy or thyromegaly. LUNGS: Clear to auscultation, equal breath sounds bilaterally, no wheezing, no rhonchi no rales. HEART: Normal S1/S2, Regular rate and rhythm, no murmurs, rubs or gallops. 2+ pules throughout. ABDOMEN: Soft, nontender, and nondistended. Positive bowel sounds. No hepatosplenomegaly was noted. EXTREMITIES: Without any cyanosis, clubbing, rash, lesions or edema. : Lerma catheter in place with good urine output. Lab and Diagnostics Result Diagram: 01/19/17 0550 01/20/17 0611 X-Rays, CTs and MRIs PROCEDURE: US RENAL WITH ARTERIES DUPLEX DOPPLER SONOGRAM, LIMITED INDICATIONS: UNCONTROLLED HYPERTENSION Incidental finding of gallbladder sludge. IMPRESSION: 1. Renal arteries are much obscured by overlying bowel gas and renal arterial stenosis cannot be excluded. If indicated MRA could be performed. 2. Gallbladder sludge. Dictated by: Sohail BURROWS Interpreted: Jona Rivera MD on 01/05/2017 at 16: 01 Plan Impression 1. Orthostatic hypotension and supine hypertension. normal aldosterone, renin and metanephrine level. Normal renal artery doppler. 2. SHAHIDA r/o under hyperfusion in the setting of impaired renal autoregulation in CKD/DM-2. 3. Urinary retention. 4. Chronic kidney disease related to type II diabetes. 5. S/p fall with head/neck injury. Plan: Continue chlorthalidone 25 mg daily, labetalol 150 mg TID and losartan 12.5 mg daily Monitor only sitting BP, goal ~ 150-160 systolic. ACTH stim test. Midodrine as needed 1/2 hr prior to PT. Steve Hart MD Jan 20, 2017 12:31
[2017-01-20 13:14] VITALS: BP 149/76; PULSE 81; RESP 16; O2SAT 96
--- NOTE | 2017-01-20 15:58 | NUR ---
Faxed referral to [facility] in patient rehab per PESTICIDE CONTROL INSPECTOR. updated PESTICIDE CONTROL INSPECTOR
--- NOTE | 2017-01-20 19:30 | NUR ---
constipation / Ambulation Pt c/o possible constipation. Requests suppository although pt states she doesnt want it quite yet. Suppository left on eMAR available for when pt is ready for it. Ambulates 2-3 max assist FWW gait belt. JUAN hose must be on, ABD binder on, and slow rise. Care continues
--- NOTE | 2017-01-20 19:34 | NUR ---
Lerma Bladder training / Hard collar Bladder training continues. Lerma catheter clamped Q4hrs or when pt feels need to void. Hard collar in place.
[2017-01-20 19:45] VITALS: BP 192/95; PULSE 81; RESP 20; O2SAT 97
--- NOTE | 2017-01-20 19:47 | NUR ---
ACTIVITY; pt states feels "better" today. Up in chair, assisted back to bed per walker and 2 assist- pt stated some dizziness upon transfering back but subsided shortly after transfer. BP 192/95. Addendum: 01/20/17 at 1950 by NATACHA ALFARO RN EPHRAIM pettit clamped until 10pm.
[2017-01-20] MEDS: Insulin GLARgine 100 Unit/mL Syringe SUBQ SCH (21:14)
[2017-01-21] VITALS (10 sets, daily range): BP systolic 117–213; BP diastolic 73–104; PULSE 57–86; RESP 16–20; O2SAT 93–99
--- NOTE | 2017-01-21 00:57 | NUR ---
; pettit clamped and unclamped per order. Pt seems to be tolerating clamping well.
--- NOTE | 2017-01-21 05:18 | NUR ---
PAIN; pt c/o C collar discomfort but denies need for pain rx. Repositioning etc for comfort. Checked q hr during the night. Pleasant and cooperative. No request for dulc suppository.
[2017-01-21] MEDS: Insulin LISPRO 300 Unit/3 mL Inj SUBQ SCH ×4 (08:57→21:59)
--- NOTE | 2017-01-21 12:12 | NUR ---
VALENTE signed. Digna Salguero TRACK SURFACING MACHINE OPERATOR
--- NOTE | 2017-01-21 14:14 | PCM.PNMED ---
Subjective Date of Service Jan 21, 2017 Subjective Patient seen and examined today. Feels much better today. Vitals stable. Exam Vital Signs Vital Sign - Last Date Time Temp Pulse Resp B/P Pulse Ox O2 Delivery O2 Flow Rate FiO2 01/21/17 12:56 36.8 80 18 126/76 99 Room Air Intake and Output 01/20/17 01/20/17 01/21/17 Cumulative From/Thru 15:00 23:00 07:00 01/02/17 19:18 - 01/21/17 06:24 Intake Total 767 ml 800 ml 58374 ml Output Total 1000 ml 1200 ml 76561 ml Balance -233 ml -400 ml -2262 ml Intake Oral 767 ml 800 ml 45480 ml IV Total 98419 ml Packed Cells 370 ml Output Urine Total 1000 ml 1200 ml 22615 ml # Voids 1 # Bowel Movements 0 12 Exam Unchanged General: Alert, Oriented X3, Cooperative, No Acute Distress Head: Normal, [place] intact, no signs of bleeding. Neck color on Neck: Other (in brace and limited ROM due to pain) Chest & Lungs: Chest Wall Normal, Clear to auscultation bilat Cardiovascular: Regular Rate/Rhythm Abdomen: Non-tender, Non-distended, Normoactive bowel tones, Soft Lab and Diagnostics Result Diagram: 01/19/17 0550 01/21/17 0509 X-Rays, CTs and MRIs PROCEDURE: US RENAL WITH ARTERIES DUPLEX DOPPLER SONOGRAM, LIMITED INDICATIONS: UNCONTROLLED HYPERTENSION Incidental finding of gallbladder sludge. IMPRESSION: 1. Renal arteries are much obscured by overlying bowel gas and renal arterial stenosis cannot be excluded. If indicated MRA could be performed. 2. Gallbladder sludge. Dictated by: Sohail Jones [facility] Interpreted: Joan Rivera MD on 01/05/2017 at 16: 01 Assessment & Plan 71 year old female with history of atrial fibrillation, CKD, CAD s/p stents, TIA , type 2 diabetes, and uncontrolled hypertension/diabetic autonomic dysreflexia who presents as a transfer from [facility] for a head laceration and C-spine fracture following a ground level fall. # Orthostatic hypotension likely 2/2 autonomic dysreflexia , present on admission, ongoing - sitting bp much better, although on the higher side, patient is asymptomatic. Her bp from sitting to standing ranges from 170s to 90s. Treating bp aggressively does not help as her orthostatics are worse, and patient is bed bound. Will keep systolic goal at 160s-170s, as long as it is asymptomatic. Patient's bp is much better controlled now, will keep down titrating bp meds based on the recordings - Appreciate nephrology consult. Will followup with recs - decrease labetalol to 100 mg by mouth 3 times a day, Chlorthalidone 25 mg po daily, added losartan 12.5 mg daily - Renal artery duplex negative for renal arterial stenosis - will try midodrine before patient gets physical therapy to help with standing blood pressure - ACTH stim test done, cortisol response WNL # Acute cervical fracture as result of syncope and ground level fall, present on admission. - Continue immobilization with cervical collar. - Per earlier notes by Dr. Wiggins: "discussion with [facility], pt to wear C- collar for 2 weeks, with follow up imaging and appointment with Dr. Miles in 2 weeks." - Will do repeat CT today as it has been two weeks, once image results are back , will discuss with Dr. Miles - Continue with supportive care - patient was on pain meds prn, however as per patient (and her 's) request stopped as they believe that it "is the reason" why her blood pressure keeps dropping - Repeat CT : noted displaced fracture as per radiological read, contacted Dr. Trevor Nj , waiting for call back. Discussed the case with Dr. Flanagan (spine surgeon @ [facility]) Recs: continue the collar for two weeks, follow up Xray, and outpatient follow up. #Urinary retention requiring in and out catheter - Lerma inserted per nephrology for bladder training - will do voiding trials Monday #h/o complex migraines - as per patient and , patient has had extensive work up in the past due to hemiparesis and tia like symptoms, and was recommended by neurologist to treat it as complex migraine and "sleep it off" # Type 2 diabetes, uncontrolled, with neuropathy and nephropathy. present on admission. - HgA1C 7.6 - Continue with current coverage # Acute kidney injury on Chronic kidney disease Stage 4, present on admission - Avoid nephrotoxic agents. - Appreciate nephrology consult. - Cr function stabilized # Initially Suspected urinary tract infection on admission ruled out with negative urine culture. - Post treatment with Ceftriaxone that was stopped on 01/09/17 # History of A-fib post ablation. Stable - Followup # History of coronary artery disease s/p stent to LAD. with diastolic heart failure (EF 65-70%) - Elevated Trop in setting of SHAHIDA and severe hypertension on presentation - Echo without significant wall motion abnormality - No further CP reported during this hospital - Continue with Aspirin and Plavix # History of psoriatic arthritis, presumed stable. - Stelara not available on formulary. Continue on discharge # Constipation - patient complaining of constipation today - wants suppository Dispo: Pending clinical improvement. VTE Prophylaxis: SCDs VTE Mechanical Devices: Intermittant Pneumatic CD Resuscitation Status: CPR: Attempt Resuscitation Time spent 35 mins Iain Campoverde MD Jan 21, 2017 14:14
[2017-01-21] MEDS ORDERED: Darbepoetin Alfa 60 mCg/0.3 mL Inj SUBQ ONE (14:45)
--- NOTE | 2017-01-21 14:46 | PCM.PNNEPH ---
Subjective Date of Service Jan 21, 2017 Subjective Doing much better ever since midodrine was initiated. Persistent orthostatics. Able to sit up more than 6 hr per day. Exam Vital Signs Vital Sign - Last Date Time Temp Pulse Resp B/P Pulse Ox O2 Delivery O2 Flow Rate FiO2 01/21/17 12:56 36.8 80 18 126/76 99 Room Air Intake and Output 01/20/17 01/20/17 01/21/17 Cumulative From/Thru 15:00 23:00 07:00 01/02/17 19:18 - 01/21/17 06:24 Intake Total 767 ml 800 ml 72214 ml Output Total 1000 ml 1200 ml 26878 ml Balance -233 ml -400 ml -2262 ml Intake Oral 767 ml 800 ml 92110 ml IV Total 46313 ml Packed Cells 370 ml Output Urine Total 1000 ml 1200 ml 55331 ml # Voids 1 # Bowel Movements 0 12 Exam GENERAL: The patient in no apparent distress, and alert and oriented x3. Neck collar. HEENT: Head is normocephalic, crusted laceration, intact and dry. NECK: Supple, no elevation of JVD, No carotid bruits. No lymphadenopathy or thyromegaly. LUNGS: Clear to auscultation, equal breath sounds bilaterally, no wheezing, no rhonchi no rales. HEART: Normal S1/S2, Regular rate and rhythm, no murmurs, rubs or gallops. 2+ pules throughout. ABDOMEN: Soft, nontender, and nondistended. Positive bowel sounds. No hepatosplenomegaly was noted. EXTREMITIES: Without any cyanosis, clubbing, rash, lesions or edema. Lab and Diagnostics Result Diagram: 01/19/17 0550 01/21/17 0509 X-Rays, CTs and MRIs PROCEDURE: US RENAL WITH ARTERIES DUPLEX DOPPLER SONOGRAM, LIMITED INDICATIONS: UNCONTROLLED HYPERTENSION Incidental finding of gallbladder sludge. IMPRESSION: 1. Renal arteries are much obscured by overlying bowel gas and renal arterial stenosis cannot be excluded. If indicated MRA could be performed. 2. Gallbladder sludge. Dictated by: Sohail BURROWS Interpreted: Joan Rivera MD on 01/05/2017 at 16: 01 Plan Impression 1. Orthostatic hypotension and supine hypertension. Normal aldosterone, renin and metanephrine level. Normal renal artery Doppler. Normal ACTH stimulation test. Normal TSH level. Echo: Moderate-severe concentric left ventricular hypertrophy. EF 65- 70%. 2. SHAHIDA r/o under hyperfusion in the setting of impaired renal autoregulation in CKD/DM-2. relatively stable. 3. Urinary retention. 4. Chronic kidney disease related to type II diabetes. 5. S/p fall with head/neck injury. Plan: Continue chlorthalidone 25 mg daily, labetalol 100 mg TID and losartan 12.5 mg daily Monitor only sitting BP, goal ~ 150-160 systolic. Midodrine as needed 1/2 hr prior to PT. Steve Hart MD Jan 21, 2017 14:46
--- NOTE | 2017-01-21 16:32 | NUR ---
Social Work- Multidisciplinary Rounds Pt discussed in rounds. Pt is improving slowly and may progress to tolerate inpt rehab. SW unable to see pt today due to high census. SW will continue to follow. FARHAN Uribe
--- NOTE | 2017-01-21 17:20 | NUR ---
BP I sat pt. up this morning shortly after patient awoke and she became hypotensive and symptomatic stating she was dizzy, lightheaded and seeing black spots. Her BP at this time was 117/74. One hour later pt was able to tolerate sitting up just fine, with sitting BP 152/79. With PT, pts. BP dropped to the 90s/60s when standing and pt. also became symptomatic. She feels fine when sitting upright. Will continue to monitor.
--- NOTE | 2017-01-21 21:18 | NUR ---
BP Patient's BP sitting upright in bed 209/94. 100mg Labetalol PO TID given. Night hospitalist notified. No new orders at this time. Previous BP's at 1999 were 146/75 sitting and 133/66 sitting. Will continue to monitor BP. Addendum: 01/21/17 at 2214 by MARY ROSA RN Reassessed BP at 2200 = 213/104 & 2210 = 204/97. Night hospitalist notified, no new orders at this time. Addendum: 01/21/17 at 2345 by MARY ROSA RN New order for 10mg IV Labetalol given once. BP down to 173/87. Night hospitalist notified.
[2017-01-21] MEDS: Insulin GLARgine 100 Unit/mL Syringe SUBQ SCH (21:59)
[2017-01-21] MEDS ORDERED: Labetalol 5 mg/mL 20 mL Inj IVPUSH ONE (22:25)
[2017-01-22 01:35] VITALS: BP 156/82; PULSE 85; RESP 18; O2SAT 97
--- NOTE | 2017-01-22 09:09 | PCM.PNMED ---
Subjective Date of Service Jan 22, 2017 Subjective Patient seen and examined. Said she had a rough night, however feels good now. Vitals noted. Exam Vital Signs Vital Sign - Last Date Time Temp Pulse Resp B/P Pulse Ox O2 Delivery O2 Flow Rate FiO2 01/22/17 01:35 36.8 85 18 156/82 97 01/21/17 23:34 Room Air Intake and Output 01/21/17 01/21/17 01/22/17 Cumulative From/Thru 15:00 23:00 07:00 01/02/17 19:18 - 01/22/17 06:35 Intake Total 720 ml 200 ml 29239 ml Output Total 1050 ml 900 ml 58908 ml Balance -330 ml -700 ml -3292 ml Intake Oral 700 ml 200 ml 21698 ml IV Total 20 ml 84467 ml Packed Cells 370 ml Output Urine Total 1050 ml 900 ml 87176 ml # Voids 1 # Bowel Movements 12 Lab and Diagnostics Result Diagram: 01/19/17 0550 01/21/17 0509 X-Rays, CTs and MRIs PROCEDURE: US RENAL WITH ARTERIES DUPLEX DOPPLER SONOGRAM, LIMITED INDICATIONS: UNCONTROLLED HYPERTENSION Incidental finding of gallbladder sludge. IMPRESSION: 1. Renal arteries are much obscured by overlying bowel gas and renal arterial stenosis cannot be excluded. If indicated MRA could be performed. 2. Gallbladder sludge. Dictated by: Sohail Jones Roya Interpreted: Joan Rivera MD on 01/05/2017 at 16: 01 Assessment & Plan 71 year old female with history of atrial fibrillation, CKD, CAD s/p stents, TIA , type 2 diabetes, and uncontrolled hypertension/diabetic autonomic dysreflexia who presents as a transfer from [facility] for a head laceration and C-spine fracture following a ground level fall. # Orthostatic hypotension likely 2/2 autonomic dysreflexia , present on admission, ongoing - sitting bp a little bit higher yesterday, although on the higher side, patient is asymptomatic. Her bp from sitting to standing ranges from 170s to 90s. Treating bp aggressively does not help as her orthostatics are worse, and patient is bed bound. Will keep systolic goal at 160s-170s, as long as it is asymptomatic.In general, patient's bp is much better controlled now, will keep down titrating bp meds based on the recordings - Appreciate nephrology consult. Will followup with recs - increase labetalol to 125 mg by mouth 3 times a day, Chlorthalidone 25 mg po daily, losartan 12.5 mg daily - Renal artery duplex negative for renal arterial stenosis -on midodrine before patient gets physical therapy to help with standing blood pressure - ACTH stim test done, cortisol response WNL - will try sit to stand machine to help with PT # Acute cervical fracture as result of syncope and ground level fall, present on admission. - Continue immobilization with cervical collar. - Per earlier notes by Dr. Wiggins: "discussion with [facility], pt to wear C- collar for 2 weeks, with follow up imaging and appointment with Dr. Miles in 2 weeks." - Will do repeat CT today as it has been two weeks, once image results are back , will discuss with Dr. Miles - Continue with supportive care - patient was on pain meds prn, however as per patient (and her 's) request stopped as they believe that it "is the reason" why her blood pressure keeps dropping - Repeat CT : noted displaced fracture as per radiological read, contacted Dr. Trevor Nj , waiting for call back. Discussed the case with Dr. Flanagan (spine surgeon @ [facility]) Recs: continue the collar for two weeks, follow up Xray, and outpatient follow up. #Urinary retention requiring in and out catheter - Lerma inserted per nephrology for bladder training - will do voiding trials Monday #h/o complex migraines - as per patient and , patient has had extensive work up in the past due to hemiparesis and tia like symptoms, and was recommended by neurologist to treat it as complex migraine and "sleep it off" # Type 2 diabetes, uncontrolled, with neuropathy and nephropathy. present on admission. - HgA1C 7.6 - Continue with current coverage # Acute kidney injury on Chronic kidney disease Stage 4, present on admission - Avoid nephrotoxic agents. - Appreciate nephrology consult. - Cr elevated today , will monitor # Initially Suspected urinary tract infection on admission ruled out with negative urine culture. - Post treatment with Ceftriaxone that was stopped on 01/09/17 # History of A-fib post ablation. Stable - Followup # History of coronary artery disease s/p stent to LAD. with diastolic heart failure (EF 65-70%) - Elevated Trop in setting of SHAHIDA and severe hypertension on presentation - Echo without significant wall motion abnormality - No further CP reported during this hospital - Continue with Aspirin and Plavix # History of psoriatic arthritis, presumed stable. - Stelara not available on formulary. Continue on discharge # Constipation - patient complaining of constipation today - on bowel regimen Dispo: Pending clinical improvement. VTE Prophylaxis: SCDs VTE Mechanical Devices: Intermittant Pneumatic CD Resuscitation Status: CPR: Attempt Resuscitation Time spent 35 mins Iain Campoverde MD Jan 22, 2017 09:09
[2017-01-22 09:18] VITALS: BP 167/80; PULSE 80; RESP 14; O2SAT 98
[2017-01-22] MEDS: Insulin LISPRO 300 Unit/3 mL Inj SUBQ SCH ×4 (09:28→21:20)
[2017-01-22 13:22] VITALS: BP 108/69; PULSE 83; RESP 16; O2SAT 98
[2017-01-22 15:21] VITALS: BP 146/84; PULSE 85
--- NOTE | 2017-01-22 16:22 | NUR ---
Social Work- Continued D/C Planning/Multidisciplinary Rounds Data: EMR reviewed. Pt is on day 20 of hospitalization. Pt is not medically ready for discharge. Pt discussed in rounds. Pt continues to have high BP then orthostatis hypotension. SW unable to see pt today due to high census. SW will continue to follow. Sw will follow up with Inpatient rehab on Monday. Assessment: Pt who may progress to benefit from inpt rehab. Current recommendation is SNF. Plan: SW will follow up with [facility] inpatient rehab on Monday. SW will continue to follow. FARHAN Uribe
--- NOTE | 2017-01-22 17:30 | NUR ---
Activity tolerance Pt. was able to walk several feet to chair this morning after several attempts to stand. She would get dizzy and would have to sit down, but she felt better after standing three times. She was able to walk back to bed this afternoon fairly well.
[2017-01-22 21:07] VITALS: BP 146/82; PULSE 96; RESP 18; O2SAT 97
[2017-01-22] MEDS: Insulin GLARgine 100 Unit/mL Syringe SUBQ SCH (22:21)
--- NOTE | 2017-01-23 06:17 | NUR ---
Bladder training Pt. did well with bladder training with pettit. Pt. could feel bladder getting full. Pt's BP were also better. Will continue to monitor.
[2017-01-23 06:18] VITALS: BP 121/67; PULSE 74; RESP 16; O2SAT 97
[2017-01-23] MEDS: Insulin LISPRO 300 Unit/3 mL Inj SUBQ SCH ×4 (08:00→21:35)
--- NOTE | 2017-01-23 08:51 | PCM.PNMED ---
Subjective Date of Service Jan 23, 2017 Subjective Patient seen and examined today. She says she feels good. Vitals noted Exam Vital Signs Vital Sign - Last Date Time Temp Pulse Resp B/P Pulse Ox O2 Delivery O2 Flow Rate FiO2 01/23/17 06:18 36.6 74 16 121/67 97 Room Air Intake and Output 01/22/17 01/22/17 01/23/17 Cumulative From/Thru 15:00 23:00 07:00 01/02/17 19:18 - 01/23/17 06:39 Intake Total 1094 ml 200 ml 14066 ml Output Total 810 ml 150 ml 36508 ml Balance 284 ml 50 ml -2958 ml Intake Oral 1074 ml 200 ml 56583 ml IV Total 97126 ml Packed Cells 370 ml Tube Irrigant 20 ml 20 ml Output Urine Total 810 ml 150 ml 04720 ml # Voids 1 # Bowel Movements 0 12 Exam General: Alert, Oriented X3, Cooperative, No Acute Distress Head: Normal, Marion intact, no signs of bleeding. Neck color on Neck: Other (in brace and limited ROM due to pain) Chest & Lungs: Chest Wall Normal, Clear to auscultation bilat Cardiovascular: Regular Rate/Rhythm Abdomen: Non-tender, Non-distended, Normoactive bowel tones, Soft Lab and Diagnostics Result Diagram: 01/19/17 0550 01/23/17 0525 X-Rays, CTs and MRIs PROCEDURE: US RENAL WITH ARTERIES DUPLEX DOPPLER SONOGRAM, LIMITED INDICATIONS: UNCONTROLLED HYPERTENSION Incidental finding of gallbladder sludge. IMPRESSION: 1. Renal arteries are much obscured by overlying bowel gas and renal arterial stenosis cannot be excluded. If indicated MRA could be performed. 2. Gallbladder sludge. Dictated by: Sohail Jones Roya Interpreted: Joan Rivera MD on 01/05/2017 at 16: 01 Assessment & Plan 71 year old female with history of atrial fibrillation, CKD, CAD s/p stents, TIA , type 2 diabetes, and uncontrolled hypertension/diabetic autonomic dysreflexia who presents as a transfer from [facility] for a head laceration and C-spine fracture following a ground level fall. # Orthostatic hypotension likely 2/2 autonomic dysreflexia , present on admission, ongoing - sitting bp better controlled today, labile, patient is asymptomatic. Her bp from sitting to standing ranges from 170s to 90s systolic. Treating bp aggressively does not help as her orthostatics are worse, and patient is bed bound. Will keep systolic goal at 160s-170s, as long as it is asymptomatic.In general, patient's bp is much better controlled now, will keep the current regimen. - Appreciate nephrology consult. Will followup with recs - continue labetalol to 125 mg by mouth 3 times a day, Chlorthalidone 25 mg po daily, losartan 12.5 mg daily - Renal artery duplex negative for renal arterial stenosis -on midodrine before patient gets physical therapy to help with standing blood pressure - ACTH stim test done, cortisol response WNL - Patient has done very well when coached during the PT sessions, and I feel has good chances of recovery if she gains her strength back # Acute cervical fracture as result of syncope and ground level fall, present on admission. - Continue immobilization with cervical collar. - Per earlier notes by Dr. Wiggins: "discussion with [facility], pt to wear C- collar for 2 weeks, with follow up imaging and appointment with Dr. Miles in 2 weeks." - Will do repeat CT today as it has been two weeks, once image results are back , will discuss with Dr. Miles - Continue with supportive care - patient was on pain meds prn, however as per patient (and her 's) request stopped as they believe that it "is the reason" why her blood pressure keeps dropping - Repeat CT : noted displaced fracture as per radiological read, contacted Dr. Trevor Nj , waiting for call back. Discussed the case with Dr. Flanagan (spine surgeon @ [facility]) Recs: continue the collar for two weeks, follow up Xray, and outpatient follow up. #Urinary retention requiring in and out catheter - Lerma inserted per nephrology for bladder training - Neurogenic bladder, will try voiding trials tomorrow #h/o complex migraines - as per patient and , patient has had extensive work up in the past due to hemiparesis and tia like symptoms, and was recommended by neurologist to treat it as complex migraine and "sleep it off" # Type 2 diabetes, uncontrolled, with neuropathy and nephropathy. present on admission. - HgA1C 7.6 - Continue with current coverage # Acute kidney injury on Chronic kidney disease Stage 4, present on admission - Avoid nephrotoxic agents. - Appreciate nephrology consult. - Cr levelled off , will monitor # Initially Suspected urinary tract infection on admission ruled out with negative urine culture. - Post treatment with Ceftriaxone that was stopped on 01/09/17 # History of A-fib post ablation. Stable - Followup # History of coronary artery disease s/p stent to LAD. with diastolic heart failure (EF 65-70%) - Elevated Trop in setting of SHAHIDA and severe hypertension on presentation - Echo without significant wall motion abnormality - No further CP reported during this hospital - Continue with Aspirin and Plavix # History of psoriatic arthritis, presumed stable. - Stelara not available on formulary. Continue on discharge # Constipation - patient complaining of constipation - on bowel regimen Dispo:Patient has been accepted for inpatient rehab([facility]). They will be able to take her on monday. aware. VTE Prophylaxis: SCDs VTE Mechanical Devices: Intermittant Pneumatic CD Resuscitation Status: CPR: Attempt Resuscitation Time spent 35 mins Iain Campoverde MD Jan 23, 2017 08:51
[2017-01-23] MEDS ORDERED: MetoCLOpramide 5 mg/mL 2 mL Inj IVPUSH PRN (09:07)
[2017-01-23 09:48] VITALS: BP 168/74; PULSE 76
--- NOTE | 2017-01-23 11:07 | NUR ---
Called [facility] rehab and spoke with Coral [phone] she has not been able to review patient from Monday. I am faxing updated information [phone] to her as well and she will review and get back to me as soon as possible. Updated SERVICE WRITER Addendum: 01/23/17 at 1426 by VITO FINCH CM Spoke with Coral at [facility] and they can accept patient, Coral would like to plan for a transfer on Mon01/25/17. Coral has spoke with patient's and is getting him ready for transfer and letting him know patient has been accepted. Updated SERVICE WRITER
[2017-01-23 13:12] VITALS: BP 175/83; PULSE 74; RESP 18; O2SAT 99
--- NOTE | 2017-01-23 15:06 | NUR ---
Social Work: Continued Discharge Planning/Multi-Disciplinary Rounds D: EMR reviewed. Pt is on day 21 of hospitalization. Per rounds, pt is medically stable and MD is awaiting SW for inpt referral ([facility]). Per SW Fashion Intern, inpt rehab at [facility] is willing to accept pt for inpt rehab on 01/25. SW updated MD. MD updated pt and spouse - MD updated SW that all are agreeable to plan. A: Pt who has been accepted for inpt rehab at [facility] - MD ordered. P: Pt to transfer to inpt rehab at [facility] on 01/25. SW to coordinate S transport - MD order needed - SW to request. FARHAN Garcia
[2017-01-23 17:47] VITALS: BP 204/85; PULSE 77; RESP 18; O2SAT 98
[2017-01-23 20:15] VITALS: BP 169/77; PULSE 72; RESP 18; O2SAT 99
[2017-01-23] MEDS: Insulin GLARgine 100 Unit/mL Syringe SUBQ SCH (21:36)
--- NOTE | 2017-01-24 04:17 | NUR ---
Activity/Pain On initial assessment, patient denied any neck pain. C collar in place. Patient tolerating bladder training. Lerma being clamped x4 hours and unclamped until drainage stopped and then clamped again. VSS except for orthostatic hypotension. All BP to be taken while patient is sitting in bed. Patient requesting to ambulate more today. Call light within reach. Care continues.
[2017-01-24 05:52] VITALS: BP 138/71; PULSE 83; RESP 18; O2SAT 98
[2017-01-24 06:57] LABS: Mean Corpuscular Hemoglobin 30.1 pg (27.0-35.0); Mean Corpuscular Volume 94.6 fL (81-100)
[2017-01-24] MEDS: Insulin LISPRO 300 Unit/3 mL Inj SUBQ SCH ×4 (08:00→22:01)
--- NOTE | 2017-01-24 10:14 | NUR ---
Activity/Anxiety This AM patient stated that she wants all 4 side rails up on her bed for comfort and because she likes to reposition herself while in bed. Educated patient on 4 side rails being a restraint but if it was her preference and for comfort we could leave them up. Patient showed verbal understanding. Patient stated she was worried about having a bowel movement as she reports that it has been about a week since her last BM and requested suppository. Patient stated "I've never had one before and I don't know what to do. When do people usually go after they get it?". Talked with her about the suppository and what to expect. Give her a step by step play of each step. Patient called to get assistance to the bed side commode to have a bowel movement. She asked "How do we do this? Is there any way you can secure me onto the commode? Can you use the gait belt and tie it on to me? What if I fall? Or should I stay in bed and use the bed goode? I just know that I am going to fall.". Asked patient why she thinks she is going to fall and she stated that the reason she is here is because she fell but she doesn't feel light headed. With two person stand by, patient got up to the bedside commode along side the bed independently and successfully had a bowel movement. During the transfer back to bed with two person stand by, the patient continued to state "I know I'm going to fall. I'm scared. I don't want to fall, I'm nervous.". Reassured patient that it is okay to take her time and if she doesn't feel light headed it is safe to pivot back into bed with two people there beside her. Coached patient to take deep breaths and that when she was ready to stand we would be there to assist her. Patient able to get back to bed independently with two person stand by. Once in bed, patient requested that PT come in after lunch because she was worn out from using the BSC. Talked with PT to reschedule. Patient needs frequent encouragement, cudos, direction, and continues to have frequent questions. Frequent rounding in place. Assessing anxiety. Assessing need/want for all side rails up for comfort. Two person stand by/assist for all transfers for safety and patient comfort.
--- NOTE | 2017-01-24 11:17 | NUR ---
NUTRITION FOLLOW-UP: ASSESS: 71 YO female admitted with head laceration and C-spine fracture following a ground level fall. Pt continues to have ongoing orthostatic hypotension, likely due autonomic dysreflexia but will likely discharge tomorrow. PO intake has improved with pt eating 50-100% of meals. PMHX: T2DM, HTN, CKD stg 4, CAD, TIA LABS: Reviewed. BUN 42, Cr 2.25, Glu 123. MEDS: Reviewed. GI: Last BM reported 01/15 x 2. WT: 81.5 kg. Admit weight: 87.5 kg, BMI 31.1 kg/m2, IBW: 59.1 kg DIET: Consistent carb, Glucerna and cottage cheese w/fruit all trays. PO 50-100% of trays. EST. NEEDS: Kcals: 7801-9302 kcal/day (20-25 kcal/kg BW) Pro: 70-90 g/day (1.2-1.5 g/kg IBW) NUTRITION DIAGNOSIS: 1) Inadequate oral intake related to altered GI function as evidence by poor PO intake x 2 weeks and persistent nausea/vomiting - IMPROVED. NUTRITION INTERVENTION: 1) Continue to send cottage cheese with fruit and Glucerna as supplements on all trays. MONITOR / EVAL: PO intake, labs, weight, nutrition status. Continue to monitor per moderate nutrition risk guidelines.
--- NOTE | 2017-01-24 12:46 | PCM.PNNEPH ---
Subjective Date of Service Jan 24, 2017 Subjective No new complaint, feeling better. No CP/SOB/N/V. Exam Vital Signs Vital Sign - Last Date Time Temp Pulse Resp B/P Pulse Ox O2 Delivery O2 Flow Rate FiO2 01/24/17 05:52 36.5 83 18 138/71 98 Room Air Intake and Output 01/23/17 01/23/17 01/24/17 Cumulative From/Thru 15:00 23:00 07:00 01/02/17 19:18 - 01/24/17 06:34 Intake Total 1200 ml 620 ml 51540 ml Output Total 1200 ml 2300 ml 43075 ml Balance 0 ml -1680 ml -4638 ml Intake Oral 1200 ml 620 ml 31227 ml IV Total 28980 ml Packed Cells 370 ml Tube Irrigant 20 ml Output Urine Total 1200 ml 2300 ml 00076 ml # Voids 1 # Bowel Movements 12 Exam GENERAL: The patient in no apparent distress, and alert and oriented x3. Neck collar. HEENT: Head is normocephalic, crusted laceration, intact and dry. NECK: Supple, no elevation of JVD, No carotid bruits. No lymphadenopathy or thyromegaly. LUNGS: Clear to auscultation, equal breath sounds bilaterally, no wheezing, no rhonchi no rales. HEART: Normal S1/S2, Regular rate and rhythm, no murmurs, rubs or gallops. 2+ pules throughout. ABDOMEN: Soft, nontender, and nondistended. Positive bowel sounds. No hepatosplenomegaly was noted. EXTREMITIES: Without any cyanosis, clubbing, rash, lesions or edema. Lab and Diagnostics Result Diagram: 01/24/1752901/24/17 0530 X-Rays, CTs and MRIs PROCEDURE: US RENAL WITH ARTERIES DUPLEX DOPPLER SONOGRAM, LIMITED INDICATIONS: UNCONTROLLED HYPERTENSION Incidental finding of gallbladder sludge. IMPRESSION: 1. Renal arteries are much obscured by overlying bowel gas and renal arterial stenosis cannot be excluded. If indicated MRA could be performed. 2. Gallbladder sludge. Dictated by: Sohail BURROWS Interpreted: Joan Rivera MD on 01/05/2017 at 16: 01 Plan Impression 1. Orthostatic hypotension and supine hypertension. Normal aldosterone, renin and metanephrine level. Normal renal artery Doppler. Normal ACTH stimulation test. Normal TSH level. Echo: Moderate-severe concentric left ventricular hypertrophy. EF 65- 70%. 2. SHAHIDA r/o under hyperfusion in the setting of impaired renal autoregulation in CKD/DM-2. relatively stable. 3. Urinary retention s/p pettit cath placement. 4. Chronic kidney disease related to type II diabetes. 5. S/p fall with head/neck injury. Plan: Continue chlorthalidone 25 mg daily, labetalol 200 mg TID and losartan 12.5 mg daily Monitor only sitting BP, goal ~ 150-160 systolic. Midodrine 5 mg as needed 1/2 hr prior to PT. Per renal standpoint, she can be transferred to rehab center. F/u with renal in 1-2 weeks. Steve Hart MD Jan 24, 2017 12:46
[2017-01-24 15:34] VITALS: BP 138/67; PULSE 84; RESP 18; O2SAT 99
[2017-01-24 19:51] VITALS: BP 123/73; PULSE 80; RESP 18; O2SAT 99
[2017-01-24] MEDS: Insulin GLARgine 100 Unit/mL Syringe SUBQ SCH (22:00)
--- NOTE | 2017-01-24 22:17 | PCM.PNMED ---
Subjective Date of Service Jan 24, 2017 Subjective Patient is seen and examined. She says that she is feeling better and she knows that she will be going to inpatient rehabilitation in [place]. She is looking forward to going home from there. She says that until her called the [facility] they were not willing to take her. She says she had a "heart attack" following her hospitalization here 2 days after. She talked about her ablation procedure extensively Exam Vital Signs Vital Sign - Last Date Time Temp Pulse Resp B/P Pulse Ox O2 Delivery O2 Flow Rate FiO2 01/23/17 20:15 36.7 72 18 169/77 99 Room Air Intake and Output 01/23/17 01/23/17 01/24/17 Cumulative From/Thru 15:00 23:00 07:00 01/02/17 19:18 - 01/23/17 21:36 Intake Total 1200 ml 82919 ml Output Total 1200 ml 82491 ml Balance 0 ml -2958 ml Intake Oral 1200 ml 64637 ml IV Total 09933 ml Packed Cells 370 ml Tube Irrigant 20 ml Output Urine Total 1200 ml 32843 ml # Voids 1 # Bowel Movements 12 Exam General: Alert, Oriented X3, Cooperative, No Acute Distress Head: Normal, [place] intact, no signs of bleeding. Neck collar on Neck: Other (in brace and limited ROM due to pain) Chest & Lungs: Chest Wall Normal, Clear to auscultation bilat Cardiovascular: Regular Rate/Rhythm Abdomen: Non-tender, Non-distended, Normoactive bowel tones, Soft Ext: No edema Abd: Non distended Psych: No anxiety NEuro: No focal deficits IVs and Medications IV Fluids None Medications Reviewed: Medications were reviewed in detail Lab and Diagnostics Laboratory Tests Test 01/24/17 05:30 White Blood Count 7.2th/mm3 (3.8-10.1) Red Blood Count 3.35mil/mm3 (3.90-5.20) Hemoglobin 10.1g/dL (12.0-15.6) Hematocrit 31.7% (35.0-46.0) Mean Corpuscular Volume 94.6fL (81-100) Mean Corpuscular Hemoglobin 30.1pg (27.0-35.0) Mean Corpuscular Hemoglobin Concent 31.9% (32.0-37.0) Red Cell Distribution Width 14.6% (12.3-15.4) Platelet Count 382bil/L (150-400) Sodium Level 140mEq/L (134-144) Potassium Level 5.0mEq/L (3.5-5.2) Chloride Level 105mEq/L (97-108) Carbon Dioxide Level 23mmol/L (18-29) Blood Urea Nitrogen 42mg/dL (8-27) Creatinine 2.25mg/dL (0.57-1.00) Estimat Glomerular Filtration Rate 31mL/min (>59) Glucose Level 123mg/dL (60-99) Calcium Level 9.3mg/dL (8.5-10.1) Microbiology 01/15/17 C. difficile DNA Amplification - Final, Complete 01/02/17 Urine Culture - Final, Complete No growth (<1,000 organisms/mL) Result Diagram: 01/19/17 0550 01/23/17 0525 X-Rays, CTs and MRIs PROCEDURE: US RENAL WITH ARTERIES DUPLEX DOPPLER SONOGRAM, LIMITED INDICATIONS: UNCONTROLLED HYPERTENSION Incidental finding of gallbladder sludge. IMPRESSION: 1. Renal arteries are much obscured by overlying bowel gas and renal arterial stenosis cannot be excluded. If indicated MRA could be performed. 2. Gallbladder sludge. Dictated by: Sohail BURROWS Interpreted: Joan Rivera MD on 01/05/2017 at 16: 01 Assessment & Plan 71 year old female with history of atrial fibrillation, CKD, CAD s/p stents, TIA , type 2 diabetes, and uncontrolled hypertension/diabetic autonomic dysreflexia who presents as a transfer from [facility] for a head laceration and C-spine fracture following a ground level fall. # Orthostatic hypotension likely 2/2 autonomic dysreflexia , present on admission, ongoing - sitting bp better controlled today, labile, patient is asymptomatic. Her bp from sitting to standing ranges from 170s to 90s systolic. Treating bp aggressively does not help as her orthostatics are worse, and patient is bed bound. Will keep systolic goal at 160s-170s, as long as it is asymptomatic.In general, patient's bp is much better controlled now, will keep the current regimen. - Appreciate nephrology consult. Will followup with recs - continue labetalol to 200 mg by mouth 3 times a day, Chlorthalidone 25 mg po daily, losartan 12.5 mg daily - Renal artery duplex negative for renal arterial stenosis -on midodrine PRN before patient gets physical therapy to help with standing blood pressure - ACTH stim test done, cortisol response WNL - Patient has done very well when coached during the PT sessions, and has good chances of recovery if she gains her strength back -- Patient is to be transferred to [facility] for inpatient rehabilitation # Acute cervical fracture as result of syncope and ground level fall, present on admission. - Continue immobilization with cervical collar. - Per earlier notes by Dr. Wiggins: "discussion with Davistonopal, pt to wear C- collar for 2 weeks, with follow up imaging and appointment with Dr. Miles in 2 weeks." - Will do repeat CT today as it has been two weeks, once image results are back , will discuss with Dr. Miles - Continue with supportive care - patient was on pain meds prn, however as per patient (and her 's) request stopped as they believe that it "is the reason" why her blood pressure keeps dropping - Per DR. Campoverde's notes "Repeat CT : noted displaced fracture as per radiological read, contacted Dr. Trevor Nj , Discussed the case with Dr. Flanagan (spine surgeon @ [facility]) Recs: continue the collar for two weeks, follow up Xray, and outpatient follow up. " #Urinary retention requiring in and out catheter - Lerma inserted per nephrology for bladder training - Neurogenic bladder, will try voiding trials in the am #h/o complex migraines - as per patient and , patient has had extensive work up in the past due to hemiparesis and tia like symptoms, and was recommended by neurologist to treat it as complex migraine and "sleep it off" # Type 2 diabetes, uncontrolled, with neuropathy and nephropathy. present on admission. - HgA1C 7.6 - Continue with current coverage # Acute kidney injury on Chronic kidney disease Stage 4, present on admission - Avoid nephrotoxic agents. - Appreciate nephrology consult. - Cr levelled off , will monitor --Pt continues to be on Losartan, due to cardiac reasons. Discuss with nephrology in the am. # Initially Suspected urinary tract infection on admission ruled out with negative urine culture. - Post treatment with Ceftriaxone that was stopped on 01/09/17 # History of A-fib post ablation. Stable - Continue to monitor # History of coronary artery disease s/p stent to LAD. with diastolic heart failure (EF 65-70%) - Elevated Trop in setting of SHAHIDA and severe hypertension on presentation: Review of records showed anginal pain that improved with meds - Echo without significant wall motion abnormality - No further CP reported during this hospital - Continue with Aspirin and Plavix # History of psoriatic arthritis, presumed stable. - Stelara not available on formulary. Continue on discharge # Constipation - patient complaining of constipation - on bowel regimen #Chest pain, resolved 01/05/17. Notes from Dr. Gomez : "This patient is likely having unstable angina relation to her known diagnosis vessel disease and recent cessation of dual antiplatelet therapy. We will give her dose of Plavix, aspirin, low-dose metoprolol and place Nitropaste for both blood pressure and anginal symptoms. RR at this point considering heparin drip as well. She has likely a low bleeding risk associated with her C2 odontoid fracture. We will also give her 1 unit of blood as her hematocrit is 25 and she is having active chest pain. It appears her chest pain has resolved thereafter" #chest Pain resolved 01/14/[address] Abraham"- Elevated Trop in setting of SHAHIDA and severe hypertension on presentation, Echo without significant wall motion abnormality, No further CP reported during this hospital, Continue with Aspirin and Plavix" Dispo:Patient has been accepted for inpatient rehab([facility]). They will be able to take her on monday. aware. Pain Evaluation: Adequate Pain Control VTE Prophylaxis: SCDs VTE Mechanical Devices: Anti-Embolic stockings Resuscitation Status: CPR: Attempt Resuscitation Time spent 25 min Libertad Jain DO Jan 24, 2017 05:23
--- NOTE | 2017-01-25 03:59 | NUR ---
Activity Pt has denied pain this shift. Bladder training with pettit continues and pt reports that she can feel bladder filling up by 4 hrs. Pt has been able to sleep most of shift and appears calm and comfortable. C-collar in place.
[2017-01-25 04:16] VITALS: BP 164/70; PULSE 73; RESP 16; O2SAT 99
[2017-01-25] MEDS: Insulin LISPRO 300 Unit/3 mL Inj SUBQ SCH (08:00)
[2017-01-25] MEDS ORDERED: LOSA25TA2 PO (08:11)
[2017-01-25] MEDS ORDERED: CYCL10TA9 PO (08:11)
[2017-01-25] MEDS ORDERED: Acetaminophen PO (08:11)
[2017-01-25] MEDS ORDERED: INSU100V7 SUBQ ×2 (08:11→08:13)
[2017-01-25] MEDS ORDERED: HYG25 PO (08:11)
[2017-01-25] MEDS ORDERED: LABE100T4 PO (08:11)
[2017-01-25] MEDS ORDERED: MIDO5TAB PO (08:11)
--- NOTE | 2017-01-25 08:45 | PCM.DIMED ---
Discharge Instructions Date of Service Jan 25, 2017 Dates of Hospitalization Jan 02, 2017 at 18:29 Discharge Diagnosis Discharge Diagnosis Orthostatic hypotension due to autonomic dys Diet Discharge Diet: Diabetic Activity Discharge Activity: Outpatient Physical Therapy (At [facility]) Call your provider Call your provider for: Fever or Chills, Shortness of breath, Bleeding, Chest pain, Vomitting, Excessive diarrhea, Weakness (unilateral), Other Patient Instructions Patient Instructions Patient had a pettit catheter for a few days prior to discharge due to neurogenic baldder. She underwent bladder traning per nephrology. We have done a voiding challenge on the am of discharge. Patient was able to void on her own. Please continue to monitor her for this with periodic bladder scans Patient has a PRN order for midodrine to help with PT/OT to be administered 1/2 hr prior to PT/OT sessions per nephrology. Please check orthostatics once every 2 days. If negative, discontinue midodrine PT/OT Recs: "Assessment * Pt premedicated by nursing prior to mobilization. Pt was sitting in a chair comfortably at the start of session and was agreeable to attempt PT. Pt performed STS (x2) with FWW and CGA/SBA. She had diarrhea start 30 min. prior to PT start, and therefore, declined ambulating with PT. Pt declined attempt to ambulate to BSC and ambulate in the room. Based on this evaluation, PT recommends d/c to SNF with daily PT via BLS secondary to concern for dynamic sitting balance, orthostatic hypotension, and anxiety. PT will progress daily as tolerated. Tolerance to Treatment * Good Current Discharge Recommendations * [facility] Discharge Mode of Transportaion * BLS " Follow-up plan Patient needs a 10 [address] up [address]. Miles at [facility], please set this up for her. She will need a f/u X-ray of her enck prior to follow up. This needs to be done at the [facility], if patient is still there at that time. Otherwise, [facility] discharge planning should include the order for an x-ray. Patient needs a 2 week f/u with [facility]/Dr. 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 Other discharge planning per [facility] F/U BMP weekly Libertad Jain DO Jan 25, 2017 08:45
--- NOTE | 2017-01-25 08:51 | NUR ---
Social Work- Readiness for Discharge Data: EMR reviewed. Pt is on day 23 of hospitalization per H&P. Pt is medically stable for transfer. Per Rayne's pt is requested to discharge at 11 am. ERNESTINE text paged MD to begin discharge orders. ERNESTINE met with pt at bedside regarding discharge plan and transport time. Pt is agreeable to discharge plan and time. RN updated of discharge time, number for report given. ERNESTINE called pt's Jayson regarding discharge plan and time and Jayson is agreeable. ERNESTINE received BLS transport order. PCS form will be required. ERNESTINE explained to both pt and pt's that ambulance transport is never guaranteed to be covered by insurance. Both are agreeable. Paperwork in chart. Pt to discharge to [facility] at 11 am today. All updated and agreeable to plan. ERNESTINE will continue to follow. Assessment: Pt for whom inpt rehab is medically necessary Plan: Pt to discharge to [facility] at 11 am today. Paperwork in chart. All updated and agreeable to plan. ERNESTINE will continue to follow. FARHAN Uribe
--- NOTE | 2017-01-25 10:17 | NUR ---
TRANSFER TO INPATIENT REHAB: Arrange BLS transfer via [facility] to [facility] Inpatient cone picker will 11AM, faxed orders to [facility] and [facility] and updated them on time of transport. PCS form completed Updated ESL INSTRUCTOR
--- NOTE | 2017-01-25 10:55 | PCM.DC.MED ---
Discharge Summary Date of Service Jan 25, 2017 Dates of Hospitalization Date of Hospital Admission Jan 02, 2017 at 18:29 Date of Discharge: Jan 24, 2017 Providers: Admitting Physician: Kenneth Rodriguez MD Primary Care Physician: Geronimo Gonzales MD Attending Physician: Libertad Murphy DO Diagnosis at Time of Discharge Diagnosis at Time of Discharge Orthostatic hypotension due to autonomic dys Consultations Nephrology, PT/OT Procedures XRay, CTs & MRIs PROCEDURE: US RENAL WITH ARTERIES DUPLEX DOPPLER SONOGRAM, LIMITED INDICATIONS: UNCONTROLLED HYPERTENSION Incidental finding of gallbladder sludge. IMPRESSION: 1. Renal arteries are much obscured by overlying bowel gas and renal arterial stenosis cannot be excluded. If indicated MRA could be performed. 2. Gallbladder sludge. Dictated by: Sohail Jones [facility] Interpreted: Joan Rivera MD on 01/05/2017 at 16: 01 PROCEDURE: CT CERVICAL SPINE WITHOUT CONTRAST ([id number]) INDICATIONS: Follow up CT for previous fractures IMPRESSION: 1. A non-acute odontoid fracture. There is increased displacement of the fracture fragment. 2. Multilevel degenerative disc disease and facet arthropathy in cervical spine. The result was discussed with Dr. Campoverde prior to dictation. Dictated by: Sienna Garcia M.D. on 01/16/2017 at 15:09 Approved by: Sienna Garcia M.D. on 01/16/2017 at 15:19 PROCEDURE: CT BRAIN WITHOUT CONTRAST ([id number]) INDICATIONS: Head trauma, HTN, vomiting, anisocoria IMPRESSION: No CT evidence of acute intracranial pathology. Extensive left scalp hematoma. Dictated by: Juaquin Golden M.D. on 01/03/2017 at 8:16 Approved by: Juaquin Golden M.D. on 01/03/2017 at 8:19 PROCEDURE: X-RAY KUB ([id number]) INDICATIONS: diarrhea IMPRESSION: Negative examination without evidence of bowel obstruction. Dictated by: Jennie Ackerman MD, PhD on 01/16/2017 at 14:52 Approved by: Jennie Ackerman MD, PhD on 01/16/2017 at 14:53 Brief History Patient is a 71 year old female with history of atrial fibrillation, CKD, CAD s/ p stents, TIA, type 2 diabetes, and uncontrolled hypertension who presents as a transfer from [facility] for a head laceration and C-spine fracture following a ground level fall. Most of the history was obtained from the , who is a trauma surgeon at [facility], as the patient was somewhat altered due to pain medications and pain. She had been in declining health over the past 2 months, with recurring orthostatic hypotension and syncope, to the point that she was no longer able to stand for extended periods of time. She had been feeling more dizzy and nauseous, and began developing diarrhea yesterday. Today her was helping her to the commode, and reached for a bucket for her to vomit into when she collapsed, striking the left side of her head against the floor. She lost consciousness for 15 seconds and began to complain of head and neck pain when she came to. At [facility], temp was 36, HR 119, RR 18, BP 201/101, O2 96 on room air. WBC 8.6, Hb 11.6, Hct 34.3, Plt 263. Na 138, K 4.2, Cl 104, CO2 22, BUN 42, Cr 2.5, glucose 212. Troponin was negative. LFTs were normal. CT head/ neck showed no acute intracranial process, but did show a nondisplaced type II dens fracture. [facility] recommended conservative treatment, with placement in a hard collar for 2 weeks with re-evaluation by Dr. Miles from [facility]. She was treated at [facility] for a left scalp laceration, and was then transferred to [facility]. Per the , the patient had been tried on Norvasc, but began developing orthostatic hypotension and syncope since starting it. She has been off the medication for over a week, but he states she is still symptomatic, which he thinks is due to slow renal clearance of the medication. She had had poor oral intake over the past 2 weeks, and had been becoming progressively weaker. She has been having worsening CKD over the last 1-2 years, and her last GFR was 18, similar to today. PCP: Dr. Gonzales ([facility] Course 71 year old female with history of atrial fibrillation, CKD, CAD s/p stents, TIA , type 2 diabetes, and uncontrolled hypertension/diabetic autonomic dysreflexia who presents as a transfer from [facility] for a head laceration and C-spine fracture following a ground level fall. # Orthostatic hypotension likely 2/2 autonomic dysreflexia , present on admission, ongoing - sitting bp better controlled today, labile, patient is asymptomatic. Her bp from sitting to standing ranges from 170s to 90s systolic. Treating bp aggressively does not help as her orthostatics are worse, and patient is bed bound. Will keep systolic goal at 160s-170s, as long as it is asymptomatic.In general, patient's bp is much better controlled now, will keep the current regimen. - Appreciate nephrology consult. Will followup with recs - continue labetalol to 200 mg by mouth 3 times a day, Chlorthalidone 25 mg po daily, losartan 12.5 mg daily - Renal artery duplex negative for renal arterial stenosis -on midodrine PRN before patient gets physical therapy to help with standing blood pressure - ACTH stim test done, cortisol response WNL - Patient has done very well when coached during the PT sessions, and has good chances of recovery if she gains her strength back -- Patient is to be transferred to [facility] for inpatient rehabilitation # Acute cervical fracture as result of syncope and ground level fall, present on admission. - Continue immobilization with cervical collar. - Per earlier notes by Dr. Wiggins: "discussion with [facility], pt to wear C- collar for 2 weeks, with follow up imaging and appointment with Dr. Miles in 2 weeks." - Will do repeat CT today as it has been two weeks, once image results are back , will discuss with Dr. Miles - Continue with supportive care - patient was on pain meds prn, however as per patient (and her 's) request stopped as they believe that it "is the reason" why her blood pressure keeps dropping - Per DR. Campoverde's notes "Repeat CT : noted displaced fracture as per radiological read, contacted Dr. Trevor Nj , Discussed the case with Dr. Flanagan (spine surgeon @ [facility]) Recs: continue the collar for two weeks, follow up Xray, and outpatient follow up. " #Urinary retention requiring in and out catheter - Pettit inserted per nephrology for bladder training - Neurogenic bladder, will try voiding trials in the am #h/o complex migraines - as per patient and , patient has had extensive work up in the past due to hemiparesis and tia like symptoms, and was recommended by neurologist to treat it as complex migraine and "sleep it off" # Type 2 diabetes, uncontrolled, with neuropathy and nephropathy. present on admission. - HgA1C 7.6 - Lantus 20 U QHS+ Low SSI for discharge # Acute kidney injury on Chronic kidney disease Stage 4, present on admission - Avoid nephrotoxic agents. - Appreciate nephrology consult. - Cr levelled off , will monitor --Pt continues to be on Losartan, due to cardiac reasons. Discussed with nephrology, they are fine with this medication # Initially Suspected urinary tract infection on admission ruled out with negative urine culture. - Post treatment with Ceftriaxone that was stopped on 01/09/17 # History of A-fib post ablation. Stable - Continue to monitor # History of coronary artery disease s/p stent to LAD. with diastolic heart failure (EF 65-70%) - Elevated Trop in setting of SHAHIDA and severe hypertension on presentation: Review of records showed anginal pain that improved with meds - Echo without significant wall motion abnormality - No further CP reported during this hospital - Continue with Aspirin and Plavix # History of psoriatic arthritis, presumed stable. - Stelara not available on formulary. Continue on discharge # Constipation resolved - on bowel regimen #Slight troponin elevation/Chest pain, resolved 01/05/17. Notes from Dr. Gomez : "This patient is likely having unstable angina relation to her known diagnosis vessel disease and recent cessation of dual antiplatelet therapy. We will give her dose of Plavix, aspirin, low-dose metoprolol and place Nitropaste for both blood pressure and anginal symptoms. RR at this point considering heparin drip as well. She has likely a low bleeding risk associated with her C2 odontoid fracture. We will also give her 1 unit of blood as her hematocrit is 25 and she is having active chest pain. It appears her chest pain has resolved thereafter" #chest Pain resolved 01/14/[address] Abraham"- Elevated Trop in setting of SHAHIDA and severe hypertension on presentation, Echo without significant wall motion abnormality, No further CP reported during this hospital, Continue with Aspirin and Plavix" We recommend a f/u cardiac stress test when patient is able to participate Exam Vital Signs (Last) Date Time Temp Pulse Resp B/P Pulse Ox O2 Delivery O2 Flow Rate FiO2 01/25/17 04:16 36.6 73 16 164/70 99 Room Air Exam General: Alert, Oriented X3, Cooperative, No Acute Distress Head: Normal, Barry intact, no signs of bleeding. Neck collar on Neck: Other (in brace and limited ROM due to pain) Chest & Lungs: Chest Wall Normal, Clear to auscultation bilat Cardiovascular: Regular Rate/Rhythm Abdomen: Non-tender, Non-distended, Normoactive bowel tones, Soft Ext: No edema Abd: Non distended Psych: No anxiety NEuro: No focal deficits Test 01/02/17 21:10 01/02/17 23:46 01/03/17 05:54 01/04/17 05:45 Procalcitonin 0.08ng/mL (0.00-0.08) Urine Color Straw (YELLOW) Urine Appearance Clear (CLEAR,HAZY) Urine pH 6.0 (5.0-8.0) Urine Specific [place] 1.020 (1.003-1.035) Urine Protein >300mg/dL (NEG,TRACE) Urine Glucose (UA) 500mg/dL (NEGATIVE) Urine Ketones Tracemg/dL (NEGATIVE) Urine Occult Blood Moderate (NEGATIVE) Urine Nitrite Negative (NEGATIVE) Urine Bilirubin Negative (NEGATIVE) Urine Urobilinogen Normalmg/dL (NORMAL) Urine Leukocyte Esterase Negative (NEGATIVE) Urine RBC 3-10/hpf (0-2) Urine WBC 11-50/hpf (0-5) Urine Epithelial Cells Few/hpf (NONE-MOD) Urine Crystals None seen (NONE SEEN) Urine Bacteria Few/hpf (NONE-FEW) Urine Hyaline Casts None/lpf (NONE) Urine Granular Casts Occasional (NONE SEEN) Urine Waxy Casts None seen (NONE SEEN) Urine Red Blood Cell Casts None seen (NONE SEEN) Urine White Blood Cell Casts None seen (NONE SEEN) Urine Mucus None seen (None Seen) Urine Trichomonas None seen (NONE SEEN) Urine Yeast None (NONE SEEN) Urinalysis Comment None Urine Culture Reflexed Indicated Amylase Level 33U/L (28-100) Lipase 21U/L (13-60) Hemoglobin A1c 7.6% (4.8-5.6) Test 01/06/17 03:40 7/8/17 03:25 01/07/17 12:10 01/09/17 04:20 Ferritin 107ng/mL (13-150) Renin Activity 0.420ng/mL/hr (0.167-5.380) Aldosterone 1.8ng/dL (0.0-30.0) Aldosterone/Renin Ratio 4.3 (0.0-30.0) Vitamin D 25-Hydroxy 12.3ng/mL (30.0-100.0) Folate 12.6ng/mL (>3.0) Parathyroid Hormone (Intact) 86pg/mL (15-65) Cortisol 9.1ug/dL (.) Plasma Metanephrine <10pg/mL (0-62) Plasma Normetanephrine 29pg/mL (0-145) Iron Level 36ug/dL (35-150) Total Iron Binding Capacity 145ug/dL (250-450) Percent Iron Saturation 25%sat (15-50) Unsaturated Iron Binding 109.1ug/dL Urine Random Creatinine 78mg/dL (15-278) Urine Random Total Protein 615mg/dL (0-15) Urine Protein/Creatinine Ratio 7.88 (0-200) Hold Urine Received (Received) Uric Acid 4.2mg/dL (2.6-7.2) Globulin (PEP) 2.4g/dL (2.2-3.9) Albumin/Globulin Ratio 0.8 (0.7-1.7) Ubuxt-4-Tlucservr 0.3g/dL (0.0-0.4) Okzoa-6-Rbqtqgewp 0.5g/dL (0.4-1.0) Beta Globulins 1.2g/dL (0.7-1.3) Gamma Globulins 0.4g/dL (0.4-1.8) Serum Monoclonal Protein Not observedg/dL Protein Electrophoresis Comment Comment (.) Protein Electrophoresis Interpret Comment (.) Test 01/11/17 06:00 01/12/17 05:51 01/14/17 10:00 01/15/17 07:08 Thyroid Stimulating Hormone (TSH) 1.450uIU/mL (0.450-4.500) Free Thyroxine 0.83ng/dL (0.82-1.77) Magnesium Level 1.9mg/dL (1.6-2.6) Phosphorus Level 3.7mg/dL (2.5-4.9) Total Bilirubin 0.2mg/dL (0.0-1.2) Aspartate Amino Transf (AST/SGOT) 17U/L (0-50) Alanine Aminotransferase (ALT/SGPT) 11U/L (0-32) Alkaline Phosphatase 103U/L (25-165) Troponin T 0.089ug/L (0.0-0.011) Total Protein 4.9g/dL (6.4-8.4) Albumin 2.5g/dL (3.4-5.0) Test 01/19/17 05:50 01/20/17 06:10 01/24/17 05:30 Neutrophils (%) (Auto) 60.7% (40-74) Lymphocytes (%) (Auto) 23.8% (14-46) Monocytes (%) (Auto) 13.1% (4-12) Eosinophils (%) (Auto) 2.0% (0-5) Basophils (%) (Auto) 0.2% (0-3) Cortisol Baseline 5.5ug/dL (.) Cortisol Stimulation Collect Time 2 20.7ug/dL (Not Estab.) Cortisol Stimulation Collect Time 3 25.5ug/dL (Not Estab.) White Blood Count 7.2th/mm3 (3.8-10.1) Red Blood Count 3.35mil/mm3 (3.90-5.20) Hemoglobin 10.1g/dL (12.0-15.6) Hematocrit 31.7% (35.0-46.0) Mean Corpuscular Volume 94.6fL (81-100) Mean Corpuscular Hemoglobin 30.1pg (27.0-35.0) Mean Corpuscular Hemoglobin Concent 31.9% (32.0-37.0) Red Cell Distribution Width 14.6% (12.3-15.4) Platelet Count 382bil/L (150-400) Sodium Level 140mEq/L (134-144) Potassium Level 5.0mEq/L (3.5-5.2) Chloride Level 105mEq/L (97-108) Carbon Dioxide Level 23mmol/L (18-29) Blood Urea Nitrogen 42mg/dL (8-27) Creatinine 2.25mg/dL (0.57-1.00) Estimat Glomerular Filtration Rate 31mL/min (>59) Glucose Level 123mg/dL (60-99) Calcium Level 9.3mg/dL (8.5-10.1) Discharge Medications Discharge Medications Aspirin (Aspirin) 81 Mg Tablet 81 MG PO DAILY (Reported) Chlorthalidone (Chlorthalidone) 25 Mg Tablet 25 MG PO DAILY Prescribed by: LIBERTAD MURPHY DO Clopidogrel Bisulfate (Plavix) 75 Mg Tablet 75 MG PO DAILY (Reported) Insulin Glargine (Lantus U100 Insulin Vial) 100 Unit/Ml Vial 20 UNIT SUBQ HS Prescribed by: LIBERTAD MURPHY DO Insulin Human Lispro (HumaLOG U100 Insulin Vial) 100 Unit/Ml Unit 1 UNIT SUBQ ACHS (Reported) Check blood sugars before meals and at bedtime. Use correction factor only before meals. Blood Sugar Lispro Correction: <151, 0 units; 151-175, 1 unit; 176-200, 2 units; 201-225, 3 units; 226-250, 4 units; 251-275, 5 units; 276-300 , 6 units; 301-325, 7 units; 326-350, 8 units; 351-375, 9 units; 376-400, 10 units; >400, 12 units. Labetalol (Labetalol) 100 Mg Tablet 200 MG PO TID Prescribed by: LIBERTAD MURPHY DO Losartan Potassium (Cozaar) 25 Mg Tablet 12.5 MG PO DAILY Prescribed by: LIBERTAD MURPHY DO Midodrine (Midodrine) 5 Mg Tablet 5 MG PO DIRECTED Prescribed by: LIBERTAD MURPHY DO As needed ([Acetaminophen]) 325 MG TABLET 650 MG PO Q6H PRN PRN For Mild Pain or Fever Prescribed by: LIBERTAD MURPHY DO Cyclobenzaprine (Cyclobenzaprine) 10 Mg Tablet 10 MG PO TID PRN PRN For Spasm Prescribed by: LIBERTAD MURPHY DO Nitroglycerin SL (Nitroglycerin SL) 0.4 Mg Tab.subl 0.4 MG SL PRN CHEST PAIN ( Reported) Followup Plan Follow-up plan Patient needs a [address] Miles at [facility], please set this up for her. She will need a f/u X-ray of her enck prior to follow up. This needs to be done at the [facility], if patient is still there at that time. Otherwise, [facility] discharge planning should include the order for an x-ray. Patient needs a 2 week f/u with [facility]/Dr. Garcia for CKD satge 4 upon discharge from [facility] F/U with patient's crown ironer for a stress test as patient experienced anginal pains that resolved after medications were given during this hospital stay. Other discharge planning per [facility] F/U BMP weekly Discharge Diet: Diabetic Discharge Activity: Outpatient Physical Therapy (At [facility]) Patient Instructions Patient had a pettit catheter for a few days prior to discharge due to neurogenic baldder. She underwent bladder traning per nephrology. We have done a voiding challenge on the am of discharge. Patient was able to void on her own. Please continue to monitor her for this with periodic bladder scans Patient has a PRN order for midodrine to help with PT/OT to be administered 1/2 hr prior to PT/OT sessions per nephrology. Please check orthostatics once every 2 days. If negative, discontinue midodrine PT/OT Recs: "Assessment * Pt premedicated by nursing prior to mobilization. Pt was sitting in a chair comfortably at the start of session and was agreeable to attempt PT. Pt performed STS (x2) with FWW and CGA/SBA. She had diarrhea start 30 min. prior to PT start, and therefore, declined ambulating with PT. Pt declined attempt to ambulate to BSC and ambulate in the room. Based on this evaluation, PT recommends d/c to SNF with daily PT via BLS secondary to concern for dynamic sitting balance, orthostatic hypotension, and anxiety. PT will progress daily as tolerated. Tolerance to Treatment * Good Current Discharge Recommendations * Intermediate Facility Discharge Mode of Transportaion * BLS Time spent Greater than 30 minutes was spent in preparation of discharge with greater than 50% of that time dedicated to patient counseling and coordination of care. Libertad Murphy DO Jan 25, 2017 10:55
--- NOTE | 2017-01-25 11:05 | NUR ---
Social Work- Discharge/Multidisciplinary Rounds Data: EMR reviewed. Pt is on day 23 of hospitalization for diarrhea illness, syncope, hypovolemia per H&P. Pt discussed in rounds, pt is medically stable for discharge and will discharge today. [facility] created packet and faxed orders. Ambulance arranged for 11 am. Pt, , RN, and [facility] updated and agreeable to plan. Assessment: Pt for whom inpt rehab is medically necessary Plan: Pt to discharge to Inpt Rehab via BLS at 1100. Pt, , RN, and [facility] updated and agreeable to plan. Digna Salguero MSW
--- NOTE | 2017-01-25 11:15 | NUR ---
pt discharged to [facility] in [place] per BLS. report called to rehab center, here at time of departure. Pt had voiding trial prior to discharge, she was able to void 400cc and she also had a BM. 1 assist with transfers, using FWW. Eating/drinking well, denied pain, still has hard cervical collar on, nurse from rehab will find out if it's OK yet to remove collar, she will be having f/u appt set up
== END 2017-01-25 11:15 | DRG 73 ==
LOC: OSC 18:29 → PCC 01-05 06:07 → MPC 01-10 23:39 → OSC 01-12 13:51
PROVIDERS: ADMIT Family Medicine; ATTEND Internal Medicine
PROC: 30233N1 Transfusion of Nonautologous Red Blood Cells into Peripheral Vein, Percutaneous Approach (ICD-10-PCS; principal; 2017-01-05)
DX: G90.4 Autonomic dysreflexia (principal); I50.33 Acute on chronic diastolic (congestive) heart failure; I13.0 Hypertensive heart and chronic kidney disease with heart failure and stage 1 through stage 4 chronic kidney disease, or unspecified chronic kidney disease; N18.4 Chronic kidney disease, stage 4 (severe); S12.9XXA Fracture of neck, unspecified, initial encounter; N17.9 Acute kidney failure, unspecified; I16.0 Hypertensive urgency; Z79.82 Long term (current) use of aspirin; Z79.02 Long term (current) use of antithrombotics/antiplatelets; Z79.4 Long term (current) use of insulin; E11.21 Type 2 diabetes mellitus with diabetic nephropathy; E11.40 Type 2 diabetes mellitus with diabetic neuropathy, unspecified; Z91.81 History of falling; E11.65 Type 2 diabetes mellitus with hyperglycemia; I25.10 Atherosclerotic heart disease of native coronary artery without angina pectoris; Z95.5 Presence of coronary angioplasty implant and graft; L40.50 Arthropathic psoriasis, unspecified; D63.1 Anemia in chronic kidney disease; R33.9 Retention of urine, unspecified; K59.00 Constipation, unspecified; W18.30XA Fall on same level, unspecified, initial encounter